=== PATIENT | male | born 1940 | race Caucasian/White ===

== ENCOUNTER 2023-01-06 07:59 | Outpatient (CLI) | payer OTHER, SELFPAY | END 2023-01-06 08:00 | disposition home or self-care (01) | LOC: AMB 01-07 11:30 | PROVIDERS: PCP Family Medicine; Visit Provider Family Medicine | DX: S79.912A Unspecified injury of left hip, initial encounter (principal); S09.90XA Unspecified injury of head, initial encounter; W01.0XXA Fall on same level from slipping, tripping and stumbling without subsequent striking against object, initial encounter; Y92.002 Bathroom of unspecified non-institutional (private) residence as the place of occurrence of the external cause | CPT/HCPCS: A0425; A0427 ==

== ENCOUNTER 2023-01-06 08:35 | Inpatient (IN) | payer OTHER, SELFPAY ==
[2023-01-06] VITALS (40 sets, daily range): BP systolic 102–152; BP diastolic 63–121; PULSE 73–120; RESP 16–18; TEMP 36.4–37.7; O2SAT 90–100; BMI 27.2
--- NOTE | 2023-01-06 08:44 | CRLHL7_ITS ---
For Patients: As a result of the Cures Act, medical imaging exams and procedure reports are released immediately into your electronic medical record. You may view this report before your referring provider. If you have questions, please contact your health care provider. Indication: Trauma, fall. Technique: Left wrist 3 views. Comparison: None. Findings/Impression: Bones: Alignment is normal. No fractures or bone lesions. No sign of acute injury. Joint spaces: No significant degenerative changes. Soft tissues: Mild generalized soft tissue swelling and atherosclerosis present. Dictated by Bairon Boyle MD @ 01/06/2023 10:03:19 AM (Electronically Signed)
--- NOTE | 2023-01-06 08:44 | CRLHL7_ITS ---
For Patients: As a result of the Century Cures Act, medical imaging exams and procedure reports are released immediately into your electronic medical record. You may view this report before your referring provider. If you have questions, please contact your health care provider. Indication: Trauma. Technique: Pelvis and left hip 3 views. Comparison: None. Findings/Impression: Bones: Alignment is normal. No fractures or bone lesions. No sign of acute injury. Joint spaces: Severe bilateral hip joint arthritis. Soft tissues: Unremarkable. Dictated by Bairon Boyle MD @ 01/06/2023 9:59:46 AM (Electronically Signed)
--- NOTE | 2023-01-06 08:47 | ED_ITS ---
HPI - General Adult General Chief complaint: Extremity Pain/Injury, Lower Stated complaint: hip pain Time Seen by Provider: 01/06/23 08:38 Source: patient and EMS Mode of arrival: EMS Limitations: no limitations History of Present Illness HPI narrative: 82-year-old male with notable history of diabetes presents to the emergency department after he fell in his bathroom this morning. He had gotten up to go to the bathroom when there was water on the floor, ceramic tile was very slippery. He slipped on the tile, falling hitting his head on the floor and noting immediate pain in his left hip but now also some pain in his left wrist as well. He does not take any anticoagulants and he is confident that he did not lose consciousness. Adamantly denies any chest pain, dyspnea, dizziness or stroke-like symptoms prior to the fall. Simply a mechanical fall onto he wet floor. FAll-time is approximately 730 which is 1 hour prior to arrival. Denies prior hip or pelvis fracture. No recent surgery. He has been feeling well without any fevers or symptoms of infection. He does live independently but with his and has help at home if needed. EMS reporting no other signs of significant injury on their initial inspection. He denies any feelings of hypoglycemia. EMS did not administer any treatments prior to arrival. Past medical history notable for hypertension, hyperlipidemia, insulin-dependent diabetes. He denies any recent surgeries. Home medications are reviewed, he is able to list these accurately including his doses. He denies any drug allergies. Socially he lives independently and is a nonsmoker. Does not use a walker or cane at baseline. ROS is notable for the hip pain, a contusion to the head and also some mild wrist pain as result of the fall, nothing prior to the fall. Reviewed times 12 systems. Related Data Home Medications Medication Instructions Recorded Confirmed blood sugar diagnostic (Accu-Chek 01/06/23 01/06/23 Guide test strips) empagliflozin 10 mg tablet 10 mg PO DAILY 01/06/23 01/06/23 (Jardiance) glipizide 5 mg tablet 5 mg PO BID 01/06/23 01/06/23 insulin aspart U-100 100 unit/mL subcut 01/06/23 (3 mL) subcutaneous pen (Novolog FlexPen U-100 Insulin aspart) insulin glargine 100 unit/mL (3 unit subcut 01/06/23 mL) subcutaneous pen (Lantus Solostar U-100 Insulin) latanoprost 0.005 % eye drops drp ophthalmic (eye) 01/06/23 lisinopril 20 mg tablet 20 mg PO DAILY 01/06/23 01/06/23 metformin 1,000 mg tablet 1,000 mg PO BID 01/06/23 01/06/23 metformin 500 mg tablet 500 mg PO BID 01/06/23 01/06/23 simvastatin 40 mg tablet 40 mg PO QPM 01/06/23 01/06/23 Allergies Allergy/AdvReac Type Severity Reaction Status Date / Time No Known Drug Allergies Allergy Verified 01/06/23 08:41 [facility] Medical History (Updated 01/06/23 @ 12:26 by Iris Guerra MD) Insulin dependent type 2 diabetes mellitus ?E11.9 - Type 2 diabetes mellitus without complications (ICD-10) ?Z79.4 - [facility] (current) use of insulin (ICD-10) Social History Smoking Status: Never smoker Do you use any of these nicotine containing products: None Second hand tobacco smoke exposure: No How often do you have a drink containing alcohol: never How often do you have six or more drinks on one occasion: Never AUDIT-C Alcohol total score: 0 Non-prescribed substance use: denies use service: No Exam Const: Vital Signs, click to edit/add: Vital Signs - 24 hr 01/06/23 08:41 Temperature 97.5 F L Pulse Rate [Left P ulse Oximeter] 88 Respiratory Rate 18 Blood Pressure [Le ft Upper Arm] 148/121 H Pulse Oximetry 95 Oxygen Delivery Me thod Room Air Documenting provider has reviewed patient's vital signs: yes Common normals: no apparent distress General appearance: cooperative Other: Excellent historian. Refills his story to different members of the team with accuracy. No signs of cognitive impairment. Appears well nourished, well hydrated HENMT: Face and sinus: normal facial exam Mouth: oral and palatal mucosa normal Throat: posterior oropharynx normal Other: No signs of dental injury or tongue biting. Contusion with superficial laceration, currently hemostatic to the left restorationist area. Eye: Common normals: conjunctivae normal General eye: normal appearance of both eyes Conjunctiva: conjunctiva(e) normal Neck & C-Spine: Common normals: full ROM and no lymphadenopathy Cervical spine: no cervical spine tenderness Chest: Common normals: inspection of chest normal and palpation of chest normal Resp: Common normals: normal respiratory effort, no use of accessory muscles and clear to auscultation bilaterally Effort & inspection: able to speak in complete sentences Auscultation: clear to auscultation bilaterally Cardio: Common normals: regular rate, regular rhythm, S1 normal heart sound, S2 normal heart sound and no murmurs Rate: regular rate Rhythm: regular rhythm Heart sounds: S1 normal and S2 normal GI: Common normals: Normal to inspection, nondistended, normoactive bowel sounds present, soft to palpation, non-tender and no hepatosplenomegaly Palpation: soft and no hepatosplenomegaly Extremity: Other: Left leg is slightly shortened and externally rotated, spasm evident in the thigh. Even to gentle palpation, tender over the greater trochanter. No tenderness over the suprapubic or right hip. No obvious deformity to these areas. No bruising or lacerations to the overlying skin on the left hip. Neuro: Other: Normal speech, moves upper extremities normally. Excellent memory and recall. Cranial nerves are grossly intact. He can move his toes on command but I do not ask him to move his legs more due to obvious fracture. GCS 15 Psych: Common normals: cooperative and affect normal Attitude: engaged Insight: insight good Judgement: judgment good Skin: Common normals: no rashes or lesions noted General skin exam: no rashes or lesions noted Course Vital Signs Vital signs: Initial Vital Signs Temperature 97.5 F L 01/06/23 08:41 Temperature Source Temporal Artery Scan 01/06/23 08:41 Pulse Rate 88 01/06/23 08:41 Pulse Rhythm Regular 01/06/23 08:41 Pulse Strength 3+ Normal 01/06/23 08:41 Respiratory Rate 18 01/06/23 08:41 Blood Pressure 148/121 H 01/06/23 08:41 Blood Pressure Mean 130 H 01/06/23 08:41 Blood Pressure Position Sitting 01/06/23 08:41 Pulse Oximetry 95 01/06/23 08:41 Oxygen Delivery Method Room Air 01/06/23 08:41 Vital Signs Temperature 97.5 F L 01/06/23 08:41 Pulse Rate 88 01/06/23 08:41 Respiratory Rate 18 01/06/23 08:41 Blood Pressure 148/121 H 01/06/23 08:41 Pulse Oximetry 95 01/06/23 08:41 Oxygen Delivery Method Room Air 01/06/23 08:41 Temperature 97.5 F L 01/06/23 08:41 Pulse Rate 88 01/06/23 08:41 Respiratory Rate 18 01/06/23 08:41 Blood Pressure 148/121 H 01/06/23 08:41 Pulse Oximetry 95 01/06/23 08:41 Oxygen Delivery Method Room Air 01/06/23 08:41 Medical Decision Making MDM Narrative Medical decision making narrative: Suspect left hip fracture, concern for possible left wrist injury as well. Head contusion does not seem consistent with intracranial hemorrhage. No loss of consciousness, no use of anticoagulants. No fluctuating sensorium. We do have the ability to monitor him well for the next few hours while we complete our workup and if there is any decline or complaints of new areas of pain, we can address these. He declines pain medicine initially but I recommend that we at least start with some oral medicine is I do think he is going to continue to have significant pain will start with 5 mg of oxycodone to see how he tolerates this, we can always give more as well as 650 of Tylenol. Do recommend that we move forward with typical preoperative evaluation as I suspect that he will need surgery. He will be kept NPO, basic labs and EKG will be performed. Anticipate orthopedic consultation. Update: Patient reports his pain is controlled when he is at rest after the oxycodone. Has been NPO since about 530 last night with exception of a small sip of only water at 7:[address] Julian, he is recommending a hip replacement. Spoke with Dr. Estevez, he is accepting of admission. The p.r.n. dilaudid ordered, Zofran if needed. Will start some IV fluids and anticipate admission with surgery tomorrow or surgery later today if able to accommodate this. Discussed with patient and his , all questions answered. Lab Data Lab results reviewed: Yes I reviewed the patient's lab results Lab results narrative: Reassuring. Labs: Lab Results 01/06/23 Range/Units 08:53 WBC 6.26 (4.50-11.00) K/uL RBC 4.80 (4.30-5.90) m/uL Hgb 14.3 (13.5-17.5) gm/dL Hct 43.1 (37.0-53.0) % MCV 90 (80-100) fL MCH 30 (26-34) pg MCHC 33 (32-36) gm/dL RDW Coeff of Robert 12.8 (11.5-15.5) % Plt Count 226 (140-440) K/uL Neut % (Auto) 55.6 (42.0-72.0) % Lymph % (Auto) 25.1 (20-44) % [place] % (Auto) 7.5 (0.0-11.0) % Eos % (Auto) 11.3 H (0.0-7.0) % Baso % (Auto) 0.2 (0.0-3.0) % Neut # (Auto) 3.48 (1.7-7.0) K/uL Lymph # (Auto) 1.57 (0.90-2.90) K/uL Shawnee # (Auto) 0.50 (0.00-0.90) K/UL Eos # (Auto) 0.70 H (0.00-0.50) K/uL Baso # (Auto) 0.01 (0.00-0.30) K/uL Sodium 136 (135-149) mmol/L Potassium 4.6 (3.6-5.1) mmol/L Chloride 104 (96-114) mmol/L Carbon Dioxide 27 (20-32) mmol/L BUN 32 H (7-30) mg/dL Creatinine 1.3 (0.5-1.5) mg/dL Estimated Creat Clear 51.81 Estimated GFR 55 ml/min Glucose 168 H (60-115) mg/dL Calcium 9.0 (8.4-10.6) mg/dL SARS-CoV-2 (PCR) Negative SARS-CoV-2 (Negative) Imaging Data CT scan - pelvis: Attestation: I have reviewed the pertinent imaging results. My impression: I do see a fracture on plain x-ray, at the medial femoral neck. I have the luxury of my exam to aid me in this. Was not noted originally by the radiologist, therefore I get a CT scan which more clearly shows the fracture in the suspected area. Wrist appears normal per my interpretation, confirmed with radiology report. Radiologist's impression: IMPRESSION: Minimally impacted ventrally angulated transcervical fracture of the left femoral neck. ECG Data Attestation: I personally reviewed and interpreted this ECG as follows: Prior ECG tracings: not available for review (No prior EKGs available including in old computer system.) Interpretation: Normal sinus rhythm, rate of 79. Overall with no obvious signs of ischemia. There appeared to be some very mild chronic septal changes. Essentially normal EKG. Discharge Plan Discharge Clinical Impression: Closed fracture of left hip Patient Disposition: Admitted As Inpatient Activity Level: No Weight Bearing
[2023-01-06] MEDS: OXYCODONE 5 MG TABLET PO (08:54)
[2023-01-06] MEDS: 0.9 % SODIUM CHLORIDE 500 ML 500 ML IV (08:54)
[2023-01-06] MEDS: ACETAMINOPHEN 325 MG TABLET 650 MG PO (08:54)
[2023-01-06 09:01] LABS: Basophils Absolute Auto 0.01 K/uL (0.00-0.30); Basophils Percent Auto 0.2 % (0.0-3.0); Eosinophils Percent Auto 11.3 % (0.0-7.0); Hematocrit 43.1 % (37.0-53.0); Hemoglobin* 14.3 gm/dL (13.5-17.5); Immature Granulocytes Abs Auto 0.02 K/uL (0.00-0.30); Immature Granulocytes Pct Auto 0.3 %; Lymphocytes Absolute Auto 1.57 K/uL (0.90-2.90); Lymphocytes Percent Auto 25.1 % (20-44); Mean Corpuscular HGB Conc 33 gm/dL (32-36); Mean Corpuscular Hemoglobin 30 pg (26-34); Mean Corpuscular Volume 90 fL (80-100); Monocytes Percent Auto 7.5 % (0.0-11.0); Neutrophils Absolute Auto 3.48 K/uL (1.7-7.0); Neutrophils Percent Auto 55.6 % (42.0-72.0); Platelet Count* 226 K/uL (140-440); RDW Coefficient of Variation % 12.8 % (11.5-15.5); White Blood Count* 6.26 K/uL (4.50-11.00)
[2023-01-06 09:11] LABS: Slide Review Reflex No
[2023-01-06 09:28] LABS: Chloride* 104 mmol/L (96-114); Potassium* 4.6 mmol/L (3.6-5.1); Sodium* 136 mmol/L (135-149)
[2023-01-06 09:30] LABS: Creatinine* 1.3 mg/dL (0.5-1.5); Est. Creatinine Clearance* 51.81; Estimated Glomerular Filt Rate 55 ml/min
[2023-01-06 09:31] LABS: Blood Urea Nitrogen* 32 mg/dL (7-30); Carbon Dioxide* 27 mmol/L (20-32); Glucose* 168 mg/dL (60-115)
--- NOTE | 2023-01-06 10:07 | CRLHL7_ITS ---
For Patients: As a result of the Century Cures Act, medical imaging exams and procedure reports are released immediately into your electronic medical record. You may view this report before your referring provider. If you have questions, please contact your health care provider. INDICATION: Pain after fall. Suspected fracture. COMPARISON: Plain films same date. TECHNIQUE: Multidetector imaging of the hips with axial large field performed with axial, coronal and sagittal small field left hip reformat. FINDINGS: Degenerative arthrosis left sacroiliac joint with anterior bridging osteophytes and subchondral sclerosis. Bones are diffusely osteopenic. Severe [id number] osteoarthritis of both hips. Large subchondral cyst posterior superior left femoral head and small subchondral cysts through anterior and posterior acetabulum. Subtle fracture of the femoral neck with slight impaction and disorganization trabecula at the subcapital Marge. There are anterior nondisplaced cortical extension to the top of the lesser trochanter. Very slight ventral angulation. Nearly imperceptible posterior cortical fracture. No intra-articular extension appreciated. Greater trochanter is intact. IMPRESSION: Minimally impacted ventrally angulated transcervical fracture of the left femoral neck. Please note that all CT scans at this facility use dose modulation, iterative reconstruction, and/or weight-based dosing when appropriate to reduce radiation dose to as low as reasonably achievable. Dictated by Stan Parikh MD @ 01/06/2023 10:57:40 AM (Electronically Signed)
[2023-01-06 11:00] LABS: SARS PCR* Negative SARS-CoV-2 (Negative)
--- NOTE | 2023-01-06 13:12 | PM.IMHP1 ---
Hospitalist- H&P: HPI History of Present Illness Time Seen by Provider: 13:13 Date Seen: 01/06/23 Chief complaint: hip pain Narrative: Derek Hadley is a 82 year old male slipped and fell on a ceramic bathroom floor after getting up from the toilet. He landed on his left hip and had acute onset of left hip pain. He could not get up from the floor and his could not help him. He also bumped his left forehead he thinks on the counter on the way down. He did not lose consciousness. There is no nausea or vomiting or headache now. He also may have slightly injured his left wrist. He has not had any other injuries. He has not eaten anything since last night. He had a tiny sip of water at 6:30 a.m. He has not taken any of his usual morning medications yet. He denies any chest pain or shortness of breath. He denies any cough or fever. He denies any anesthesia or bleeding problems. He can walk 4 blocks slowly due to the arthritis in his back. He can climb 2 flights of stairs. Review of Systems Status of ROS: Reports: 10 or more systems reviewed and unremarkable except as noted in History and below [facility] Medical History (Updated 01/06/23 @ 13:40 by Genaro Freedman MD) Hypertension ?I10 - Essential (primary) hypertension (ICD-10) Insulin dependent type 2 diabetes mellitus ?E11.9 - Type 2 diabetes mellitus without complications (ICD-10) ?Z79.4 - intermediate (current) use of insulin (ICD-10) Surgical History (Updated 01/06/23 @ 13:25 by Genaro Freedman MD) History of appendectomy ?Z90.49 - Acquired absence of other specified parts of digestive tract (ICD-10) Family History (Updated 01/06/23 @ 13:25 by Genaro Freedman MD) Brother Coronary artery disease Social History (Updated 01/06/23 @ 13:26 by Genaro Freedman MD) Narrative: Derek is a retired from the [employer]. He lives with his in their own home. Smoking Status: Never smoker Do you use any of these nicotine containing products: None Second hand tobacco smoke exposure: No How often do you have a drink containing alcohol: never How often do you have six or more drinks on one occasion: Never AUDIT-C Alcohol total score: 0 Non-prescribed substance use: denies use service: No Active Problems (Updated 01/06/23 @ 13:40 by Genaro Freedman MD) Hypertension (Acute) ?I10 - Essential (primary) hypertension (ICD-10) Closed fracture of left hip (Acute) He is scheduled to have surgery today and is medically cleared for this. ?S72.002A - Fracture of unspecified part of neck of left femur, initial encounter for closed fracture (ICD-10) Insulin dependent type 2 diabetes mellitus (Acute) Will due accuchecks and a sliding scale. ?E11.9 - Type 2 diabetes mellitus without complications (ICD-10) ?Z79.4 - intermediate (current) use of insulin (ICD-10) Medical History (Updated 01/06/23 @ 13:40 by Genaro Freedman MD) Hypertension ?I10 - Essential (primary) hypertension (ICD-10) Insulin dependent type 2 diabetes mellitus ?E11.9 - Type 2 diabetes mellitus without complications (ICD-10) ?Z79.4 - terminal gauger (current) use of insulin (ICD-10) Surgical History (Updated 01/06/23 @ 13:25 by Genaro Freedman MD) History of appendectomy ?Z90.49 - Acquired absence of other specified parts of digestive tract (ICD-10) Family History (Updated 01/06/23 @ 13:25 by Genaro Freedman MD) Brother Coronary artery disease Social History (Updated 01/06/23 @ 13:26 by Genaro Freedman MD) Narrative: Derek is a retired from the [employer]. He lives with his in their own home. Smoking Status: Never smoker Do you use any of these nicotine containing products: None Second hand tobacco smoke exposure: No How often do you have a drink containing alcohol: never How often do you have six or more drinks on one occasion: Never AUDIT-C Alcohol total score: 0 Non-prescribed substance use: denies use service: No Meds Home Medications and Allergies Home Medications Medication Instructions Recorded Confirmed Type blood sugar diagnostic (Accu-Chek 01/06/23 01/06/23 History Guide test strips) empagliflozin 10 mg tablet 10 mg PO DAILY 01/06/23 01/06/23 History (Jardiance) glipizide 5 mg tablet 5 mg PO BID 01/06/23 01/06/23 History insulin aspart U-100 100 unit/mL subcut 01/06/23 History (3 mL) subcutaneous pen (Novolog FlexPen U-100 Insulin aspart) insulin glargine 100 unit/mL (3 unit subcut 01/06/23 History mL) subcutaneous pen (Lantus Solostar U-100 Insulin) latanoprost 0.005 % eye drops drp ophthalmic (eye) 01/06/23 History lisinopril 20 mg tablet 20 mg PO DAILY 01/06/23 01/06/23 History metformin 1,000 mg tablet 1,000 mg PO BID 01/06/23 01/06/23 History metformin 500 mg tablet 500 mg PO BID 01/06/23 01/06/23 History simvastatin 40 mg tablet 40 mg PO QPM 01/06/23 01/06/23 History Allergies Allergy/AdvReac Type Severity Reaction Status Date / Time No Known Drug Allergies Allergy Verified 01/06/23 08:41 Allergies/Adverse Reaction Comments: Ibuprofen. They think he may have been allergic to the coating on tablets. He has tolerated Advil liquid gel caps Exam Const: Vital Signs, click to edit/add: Vital Signs - 24 hr 01/06/23 08:41 Temperature 97.5 F L Pulse Rate [Left P ulse Oximeter] 88 Respiratory Rate 18 Blood Pressure [Le ft Upper Arm] 148/121 H Pulse Oximetry 95 Oxygen Delivery Me thod Room Air HEENT - he has a bruise over his left forehead. It is not tender. There is no tenderness over his neck and he has full range of motion no bruising anywhere else over his face. Cardiovascular regular rate and rhythm. Lungs are clear to auscultation bilaterally. Abdomen positive bowel sounds soft nontender. Extremities is tender over his left hip. No peripheral edema Homans sign is negative. Skin is warm and dry without rashes. Documenting provider has reviewed patient's vital signs: yes Common normals: no apparent distress and oriented x3 Neuro: Common normals: oriented x3 Hospitalist - H&P: Result Labs Labs: Short CBC 01/06/23 Range/Units 08:53 WBC 6.26 (4.50-11.00) K/uL Hgb 14.3 (13.5-17.5) gm/dL Hct 43.1 (37.0-53.0) % Plt Count 226 (140-440) K/uL BMP 01/06/23 08:53 Sodium 136 Potassium 4.6 Chloride 104 Carbon Dioxide 27 BUN 32 H Creatinine 1.3 Glucose 168 H Calcium 9.0 ECG Attestation: I personally reviewed and interpreted this ECG as follows: (EKG shows normal sinus rhythm. There are changes suggestive of an old septal infarct.) ECG interpretation date: 01/06/23 ECG interpretation time: 13:33 Imaging Hip xray: Radiologist's impression: Indication: Trauma. Technique: Pelvis and left hip 3 views. Comparison: None. Findings/Impression: Bones: Alignment is normal. No fractures or bone lesions.? No sign of acute injury.? Joint spaces: Severe bilateral hip joint arthritis. Soft tissues: Unremarkable. Dictated by Bairon Boyle MD @ 01/06/2023 9:59:46 AM (Electronically Signed) Hip CT: Radiologist's impression: INDICATION: Pain after fall. Suspected fracture. COMPARISON: Plain films same date. TECHNIQUE: Multidetector imaging of the hips with axial large field performed with axial, coronal and sagittal small field left hip reformat. FINDINGS: Degenerative arthrosis left sacroiliac joint with anterior bridging osteophytes and subchondral sclerosis. Bones are diffusely osteopenic. Severe [id number] osteoarthritis of both hips. Large subchondral cyst posterior superior left femoral head and small subchondral cysts through anterior and posterior acetabulum. Subtle fracture of the femoral neck with slight impaction and disorganization trabecula at the subcapital Marge. There are anterior nondisplaced cortical extension to the top of the lesser trochanter. Very slight ventral angulation. Nearly imperceptible posterior cortical fracture. No intra-articular extension appreciated. Greater trochanter is intact. IMPRESSION: Minimally impacted ventrally angulated transcervical fracture of the left femoral neck. Please note that all CT scans at this facility use dose modulation, iterative reconstruction, and/or weight-based dosing when appropriate to reduce radiation dose to as low as reasonably achievable. Dictated by Stan Parikh MD @ 01/06/2023 10:57:40 AM (Electronically Signed) Assessment and Plan Assessment and plan (1) Closed fracture of left hip: Problem comment: He is scheduled to have surgery today and is medically cleared for this. Status: Acute (2) Insulin dependent type 2 diabetes mellitus: Problem comment: Will due accuchecks and a sliding scale. Status: Acute (3) Hypertension: Status: Acute Plan He did not take his blood pressure meds today. Will evaluate his blood pressure postoperatively and determine when we need to restart his medications.
[2023-01-06] MEDS: LACTATED RINGERS 1000 ML 1,000 ML 125 ML IV (13:54)
--- NOTE | 2023-01-06 13:58 | PM.ORCN ---
History of Present Illness HPI Date Seen: 01/06/23 Requesting physician: Iris Guerra Chief complaint: hip pain Narrative: The patient is an 82-year-old community ambulator without assist. He fell in his home this morning sustaining a left hip fracture. He has never had surgery on this hip previously. He has type 2 diabetes on insulin, does not smoke cigarettes and is not on blood thinners. He lives independently, with his . Review of Systems Narrative: The patient denies: Fever, night sweats, shaking chills, nausea, vomiting, diarrhea, chest pain, chest pressure, shortness of breath, no rash, no change in hearing or vision, no issues with bleeding or clotting PFSH PFS Medical History Hypertension ?I10 - Essential (primary) hypertension (ICD-10) Insulin dependent type 2 diabetes mellitus ?E11.9 - Type 2 diabetes mellitus without complications (ICD-10) ?Z79.4 - detention (current) use of insulin (ICD-10) Surgical History History of appendectomy ?Z90.49 - Acquired absence of other specified parts of digestive tract (ICD-10) Family History Brother Coronary artery disease Social History Narrative: Derek is a retired from the [employer]. He lives with his in their own home. Smoking Status: Never smoker Do you use any of these nicotine containing products: None Second hand tobacco smoke exposure: No How often do you have a drink containing alcohol: never How often do you have six or more drinks on one occasion: Never AUDIT-C Alcohol total score: 0 Non-prescribed substance use: denies use service: No Meds Home Medications and Allergies Home Medications Medication Instructions Recorded Confirmed Type blood sugar diagnostic (Accu-Chek 01/06/23 01/06/23 History Guide test strips) empagliflozin 10 mg tablet 10 mg PO DAILY 01/06/23 01/06/23 History (Jardiance) glipizide 5 mg tablet 5 mg PO BID 01/06/23 01/06/23 History insulin aspart U-100 100 unit/mL subcut 01/06/23 History (3 mL) subcutaneous pen (Novolog FlexPen U-100 Insulin aspart) insulin glargine 100 unit/mL (3 unit subcut 01/06/23 History mL) subcutaneous pen (Lantus Solostar U-100 Insulin) latanoprost 0.005 % eye drops drp ophthalmic (eye) 01/06/23 History lisinopril 20 mg tablet 20 mg PO DAILY 01/06/23 01/06/23 History metformin 1,000 mg tablet 1,000 mg PO BID 01/06/23 01/06/23 History metformin 500 mg tablet 500 mg PO BID 01/06/23 01/06/23 History simvastatin 40 mg tablet 40 mg PO QPM 01/06/23 01/06/23 History Allergies Allergy/AdvReac Type Severity Reaction Status Date / Time No Known Drug Allergies Allergy Verified 01/06/23 08:41 Ortho Exam Narrative Exam Narrative: The patient is alert and oriented x3, in no acute distress, they are able to converse in a normal speaking voice without obvious hearing loss and with nonlabored breathing. The patient is examined supine on the hospital cart, in the emergency department. The skin about the left hip is intact, without surgical scars, swelling or ecchymosis. CMS to the foot is intact. Const Vital Signs, click to edit/add: Vital Signs - 24 hr 01/06/23 08:41 01/06/23 08:47 01/06/23 08:48 Temperature 97.5 F L Pulse Rate 78 74 Pulse Rate [Left Pulse Oximeter] 88 Respiratory Rate 18 Blood Pressure 152/83 H Blood Pressure [Left Upper Arm] 148/121 H Pulse Oximetry 95 97 97 Oxygen Delivery Method Room Air 01/06/23 09:00 01/06/23 10:50 01/06/23 10:51 Temperature Pulse Rate 74 75 78 Pulse Rate [Left Pulse Oximeter] Respiratory Rate Blood Pressure 137/69 Blood Pressure [Left Upper Arm] Pulse Oximetry 97 96 96 Oxygen Delivery Method 01/06/23 11:00 01/06/23 11:01 01/06/23 11:15 Temperature Pulse Rate 80 76 73 Pulse Rate [Left Pulse Oximeter] Respiratory Rate Blood Pressure 132/74 Blood Pressure [Left Upper Arm] Pulse Oximetry 96 94 94 Oxygen Delivery Method 01/06/23 11:30 01/06/23 11:31 01/06/23 11:45 Temperature Pulse Rate 79 74 73 Pulse Rate [Left Pulse Oximeter] Respiratory Rate Blood Pressure 108/64 Blood Pressure [Left Upper Arm] Pulse Oximetry 94 94 94 Oxygen Delivery Method 01/06/23 12:00 01/06/23 12:01 01/06/23 12:15 Temperature Pulse Rate 80 73 80 Pulse Rate [Left Pulse Oximeter] Respiratory Rate Blood Pressure 119/68 Blood Pressure [Left Upper Arm] Pulse Oximetry 95 94 98 Oxygen Delivery Method 01/06/23 12:30 01/06/23 12:32 01/06/23 12:45 Temperature Pulse Rate 78 78 79 Pulse Rate [Left Pulse Oximeter] Respiratory Rate Blood Pressure 142/77 H Blood Pressure [Left Upper Arm] Pulse Oximetry 97 96 96 Oxygen Delivery Method 01/06/23 13:00 01/06/23 13:02 01/06/23 13:15 Temperature Pulse Rate 73 75 81 Pulse Rate [Left Pulse Oximeter] Respiratory Rate Blood Pressure 134/76 Blood Pressure [Left Upper Arm] Pulse Oximetry 94 96 96 Oxygen Delivery Method 01/06/23 13:30 01/06/23 13:31 01/06/23 13:45 Temperature Pulse Rate 80 81 81 Pulse Rate [Left Pulse Oximeter] Respiratory Rate Blood Pressure 122/65 Blood Pressure [Left Upper Arm] Pulse Oximetry 90 93 96 Oxygen Delivery Method Results Labs Labs: Laboratory Results - last 48 hr 01/06/23 08:53 WBC 6.26 RBC 4.80 Hgb 14.3 Hct 43.1 MCV 90 MCH 30 MCHC 33 RDW Coeff of Robert 12.8 Plt Count 226 Neut % (Auto) 55.6 Lymph % (Auto) 25.1 Harrison % (Auto) 7.5 Eos % (Auto) 11.3 H Baso % (Auto) 0.2 Neut # (Auto) 3.48 Lymph # (Auto) 1.57 Harrison # (Auto) 0.50 Eos # (Auto) 0.70 H Baso # (Auto) 0.01 Sodium 136 Potassium 4.6 Chloride 104 Carbon Dioxide 27 BUN 32 H Creatinine 1.3 Estimated Creat Clear 51.81 Estimated GFR 55 Glucose 168 H Calcium 9.0 SARS-CoV-2 (PCR) Negative SARS-CoV-2 Diagnostic results Additional Comments: An AP pelvis, AP and cross-table lateral view of the left hip potentially show a nondisplaced, incomplete femoral neck fracture. There is Tonnis grade 3 bilateral hip osteoarthritis with medial joint space narrowing, osteophytic spurring, subchondral sclerosis and subchondral cysts. CT scan of the left hip shows a nondisplaced femoral neck fracture with extension to just above the lesser trochanter. Assessment and Plan Assessment and plan (1) Closed fracture of left hip: Problem comment: He is scheduled to have surgery today and is medically cleared for this. Status: Acute Total time spent: Total time spent is greater than 50% in coordination of care (as documented) at patient's floor/unit and/or counseling patient: (2) Insulin dependent type 2 diabetes mellitus: Problem comment: Will due accuchecks and a sliding scale. Status: Acute Total time spent: Total time spent is greater than 50% in coordination of care (as documented) at patient's floor/unit and/or counseling patient: (3) Hypertension: Status: Acute Total time spent: Total time spent is greater than 50% in coordination of care (as documented) at patient's floor/unit and/or counseling patient: Plan Assessment: Nondisplaced left femoral neck fracture Tonnis grade 3 bilateral hip osteoarthritis Plan: I told the patient and his that his injury is best treated with total hip arthroplasty. I told them that this allows us to mobilize him weight-bearing as tolerates as soon as possible. Additionally, it will take care of his pre-existing hip joint arthritis. He agrees and wishes to proceed. He has been medically cleared for surgery We will plan to take him to the operating room today.
--- NOTE | 2023-01-06 14:03 | PM.ORPRC ---
Procedure Note Date of procedure: 01/06/23 Procedure: PREOPERATIVE DIAGNOSIS: Left hip osteoarthritis, left femoral neck fracture POSTOPERATIVE DIAGNOSIS: Left hip osteoarthritis, left femoral neck fracture NAME OF OPERATION: Left total hip arthroplasty SURGEON: Juan Julian MD CARD HANGER: Melani House PA-C, FLAKITA Byrne IMPLANTS: 1. [employer] [place] # 52 sector ingrowth cup 2. 36 x 52 +4 neutral polyethylene 3. [place] cemented # 6 high offset stem 4. 36 + 5 cobalt chrome femoral head ANESTHESIA: General ESTIMATED BLOOD LOSS: 500 cc COMPLICATIONS: None SPECIMENS: None DRAINS: None PREOPERATIVE ANTIBIOTICS: Ancef 2 grams INDICATIONS: The patient is a 82-year-old who fell this morning sustaining a nondisplaced, but comminuted left femoral neck fracture. He has pre-existing, end-stage left hip osteoarthritis. He was seen in the emergency department, with the above diagnoses. Operative intervention was recommended. Given the pre-existing osteoarthritis, total hip arthroplasty was suggested. The risks, benefits and expected outcomes were discussed in detail. These included but were not limited to: Infection, bleeding, injury to blood vessel or nerve, venous thromboembolism. All questions were answered to their satisfaction. Use of an legal administrative assistant was necessary throughout the case for patient positioning and safety, soft tissue retraction and closure. A modifier 22 should be added to this case. The patient's pelvis is wide which made exposure on the femoral side quite difficult. Additionally, there was a marked amount of comminution of the neck, into the calcar which made femoral fixation challenging. These factors more than doubled the time typically required to complete the case. PROCEDURE: The patient was placed supine on the [place] table. General anesthesia was administered. The legal administrative assistant made sure the patient was properly positioned. The left hip was prepped and draped in the usual sterile fashion. The image intensifier was brought in for a perfect AP pelvis and a perfect double tear drop AP view of the right hip which were used for intraoperative templating with our fluoroscopic guide. An oblique incision was made 3 cm distal and 3 cm lateral to the anterior superior iliac spine. The legal administrative assistant retracted the soft tissues to protect them. Subcutaneous dissection was taken with electrocautery to the superficial fascia. The fascia was divided in line with the incision. Blunt dissection was carried medially to the tensor fascia nikko and sartorius interval. Deep dissection was carried with electrocautery. The circumflex vessels were cauterized and divided. The capsule was exposed and then divided in a T-fashion, tagged with #1 Ethibond sutures. Retractors were placed in the joint, held by the legal administrative assistant. The corkscrew was placed in the femoral head. The neck cut was made in the subcapital region. We made a second neck cut more distal. The bone was quite poor. The femoral head was removed intact. Acetabular retractors were placed, held by the legal administrative assistant. The labrum was sharply debrided. The capsule was released. The 43 mm reamer was used to the true medial wall. We then enlarged in 2 mm increments using the image intensifier for our reamer placement. We impacted the cup which had excellent purchase. We placed the hole eliminator and the polyethylene. Attention was then turned to the proximal femur. The limb was placed in 140 degrees of external rotation, maximum extension and adduction. A significant amount of time was spent releasing the capsule to allow us to deliver the femur into the wound and complete the femoral side safely. Retractors were held by the legal administrative assistant throughout the femoral preparation. The box toe buffer and canal finder were used. Broaches were used to a stable size. There was a large cortical fragment of the posterior neck that extended distally, just proximal to the lesser trochanter. This was devoid of soft tissue attachments. Trial components were placed. A super cable was placed around the calcar to help support the posterior neck. The hip was reduced and was found to be stable with appropriate soft tissue tension. Length and offset were close using the image intensifier. Given the poor quality bone and comminution of the neck, into the lesser trochanter, we elected to cement the femoral stem. Therefore, the cement restrictor was placed. The canal was irrigated with pulse lavage, then thoroughly dried. Cement was placed retrograde with the gun and hand pressurized. The # 6 [place] stem was placed in the canal in an appropriate amount of anteversion and impacted to the intact portion of the calcar. The posterior, free fragment was cemented in place. The cement was allowed to harden. We trialed different femoral heads in order to equal his leg lengths, using the image intensifier and our fluoroscopic guide. We then placed the femoral head. Again, the hip was reduced and was found to be stable with appropriate soft tissue tension. Length and offset had been nicely restored. The legal administrative assistant did a three minute dilute Betadine solution soak. The legal administrative assistant irrigated the wound with 3 liters of normal saline via pulse lavage. The legal administrative assistant repaired the anterior capsule with a #1 Vicryl and our previously placed Ethibond sutures. The legal administrative assistant closed the fascia over the tensor fascia nikko with a #1 PDO Stratafix, subcutaneous tissues with 2-0 Vicryl, skin with a running 3-0 Stratafix and glue. A dry dressing was applied by the legal administrative assistant. Sponge and needle counts were correct x 2. The patient tolerated the procedure well; there were no apparent complications. They were awakened and extubated in the operating room, sent to the Post-Anesthesia Care Unit in satisfactory condition. PLAN: 1. The patient will be mobilized with physical therapy, weight-bearing as tolerates 2. Xarelto x 5 days then aspirin x 30 days will be used for DVT prophylaxis 3. The patient will be discharged to a senior care facility once medically appropriate
[2023-01-06] MEDS: CEFAZOLIN 2 GM INJ IVP (14:04)
[2023-01-06] MEDS: TRANEXAMIC ACID 100 MG/ML INJ 1000 MG IV (14:11)
--- NOTE | 2023-01-06 14:12 | P.NB_ITS ---
Nerve Block Nerve Block Time Seen by Provider: 14:00 Date Seen: 01/06/23 Type of block requested by surgeon for post-operative analgesia: PARUL/LFCN Side: left Time out performed: Yes Verification of patient name: Yes Verification of date of : Yes Site marking: site marked Name of person performing procedure: [place] Continuous monitoring Was continuous monitoring of O2 sat, B/P, property assessment monitor, recorded every 15 minutes?: Yes Procedure Checklist: sterile prep, needles and gloves Ultrasound guided. Images saved: Yes Medications given in 5ml increments after negative aspiration: Ropivicaine %: 0.5 mL: 30 Needle gauge: 20 Decadron (mg): 10 Precedex (mcg): 25 Patient tolerated procedure well: Yes Additional comments: Needle noted below psoas tendon needle noted adjacent to LFCN Block Charges Block Charge (with Pro Fee): Other Periph Nerve Block Use of Ultrasound Machine for Block: Yes- US Guidance/pain block
--- NOTE | 2023-01-06 14:15 | CRLHL7_ITS ---
For Patients: As a result of the Cures Act, medical imaging exams and procedure reports are released immediately into your electronic medical record. You may view this report before your referring provider. If you have questions, please contact your health care provider. Indication: Hip replacement surgery Technique: AP hip fluoroscopic image. Fluoroscopy time 60.9 seconds. Findings/Impression: Hardware from a left total hip arthroplasty is in satisfactory position. Dictated by Haris Carr MD @ 01/07/2023 9:56:57 AM (Electronically Signed)
[2023-01-06] MEDS: LACTATED RINGERS 1000 ML 1,000 ML 100 ML IV ×2 (15:34→17:00)
--- NOTE | 2023-01-06 17:54 | CRLHL7_ITS ---
For Patients: As a result of the Cures Act, medical imaging exams and procedure reports are released immediately into your electronic medical record. You may view this report before your referring provider. If you have questions, please contact your health care provider. Indication: Postop Technique: AP hip centered pelvis and lateral view left hip Findings/Impression: Hardware from a left total hip arthroplasty is in satisfactory position. Bone alignment is normal. Additional surgical change to the lesser trochanter noted. No sign of acute fracture. Postop changes are within normal limits. Dictated by Haris Carr MD @ 01/07/2023 9:57:56 AM (Electronically Signed)
--- NOTE | 2023-01-06 18:31 | P.ANES_ITS ---
Anesthesia Charges Start Date/Time Anesthesia Start Date: 01/06/23 Anesthesia Start Time: 13:54 Stop Date/Time Anesthesia Stop Date: 01/06/23 Anesthesia Stop Time: 18:25 Summary Emergency: [facility]
[2023-01-06] MEDS: ACETAMINOPHEN 500 MG TABLET 1000 MG PO (21:00)
[2023-01-06] MEDS: SENNOSIDES 1 TAB TABLET 2 TAB PO (21:00)
[2023-01-06] MEDS: LACTATED RINGERS 1000 ML 1,000 ML 75 ML IV (21:06)
[2023-01-07] VITALS (7 sets, daily range): BP systolic 98–134; BP diastolic 60–85; PULSE 82–112; RESP 16–18; TEMP 36.6–36.9; O2SAT 94–96
[2023-01-07] MEDS: CEFAZOLIN 2 GM in 0.9 % SODIUM CHLORIDE Mini-bag 100 ML IVPB ×2 (00:18→07:54)
[2023-01-07] MEDS: ACETAMINOPHEN 500 MG TABLET 1000 MG PO ×2 (02:02→07:54)
--- NOTE | 2023-01-07 06:51 | PC.NURSE ---
END OF SHIFT NOTE: PT PLEASANT AND COOPERATIVE WITH CARES. A&O x3 WITH OCCASIONAL CONFUSION. NOT USING CALL LIGHT APPROPRIATELY WHEN NEEDING TO USE THE BATHROOM. PT DENIES CP, SOB, N/V. AMBULATES WITH WALKER, GB, A1-2. VSS ON RA; AFEBRILE. HEAD LAC TO PT LEFT SIDE OF FOREHEAD, LEFT ELBOW LAC. PT DENIES PAIN TO LEFT HIP. ACTIVE ICE TO LEFT HIP. BED ALARM ON AND CALL LIGHT WITHIN PT?S REACH.
[2023-01-07 06:58] LABS: Hematocrit 38.2 % (37.0-53.0); Hemoglobin* 12.6 gm/dL (13.5-17.5); Immature Granulocytes Pct Auto 0.2 %; Lymphocytes Percent Auto 9.5 % (20-44); Mean Corpuscular HGB Conc 33 gm/dL (32-36); Mean Corpuscular Hemoglobin 30 pg (26-34); Mean Corpuscular Volume 91 fL (80-100); Monocytes Percent Auto 8.6 % (0.0-11.0); Neutrophils Percent Auto 81.7 % (42.0-72.0); Platelet Count* 227 K/uL (140-440); RDW Coefficient of Variation % 13.1 % (11.5-15.5); Red Blood Count 4.22 m/uL (4.30-5.90); White Blood Count* 12.15 K/uL (4.50-11.00)
[2023-01-07 07:01] LABS: Slide Review Reflex No
[2023-01-07 07:11] LABS: Sodium* 133 mmol/L (135-149)
[2023-01-07 07:15] LABS: Blood Urea Nitrogen* 34 mg/dL (7-30); Creatinine* 1.4 mg/dL (0.5-1.5); Est. Creatinine Clearance* 48.11; Estimated Glomerular Filt Rate 50 ml/min
--- NOTE | 2023-01-07 09:28 | PM.DS1 ---
DS: Providers Provider Time Seen by Provider: 09:29 Date Seen: 01/07/23 Date of admission: 01/06/23 20:23 Primary care physician: Genaro Freedman MD Admitting Clinician: Katt Jesus MD Consults: 01/06/23 19:55 Consult to Occupational Therapy [CONS] Routine Comment: Reason(s) for OT Consult:: Evaluate and Treat Any Restrictions?:: No Restrictions Consult to Physical Therapy [CONS] Routine Comment: Ambulate in the [place] today Reason(s) for PT Consult:: Evaluate and Treat Any Restrictions?:: No Restrictions Comment: Nursing Activity Consult to Physical Therapy [CONS] Routine Comment: Ambulate in the [place] today Reason(s) for PT Consult:: THR TX Protocol POD#0 Any Restrictions?:: No Restrictions Comment: Nursing Activity: See nursing activity order Consult to Physician [CONS] Routine Comment: Consulting Provider: Hospitalists Has provider been notified: No Consult to [facility] [CONS] Routine Comment: Reason for Consult:: Discharge Planning Needs Consult to [facility] [CONS] Routine Comment: Reason for Consult:: Discharge Planning Needs Consult to [facility] Room Hand [CONS] Routine Comment: Reason for Consult:: Possible SNF placement Attending Physician on discharge: Juan Julian MD Date of Discharge: 01/07/23 DS: Diagnosis Discharge Diagnosis (1) Closed fracture of left hip: Status: Acute Problem details: He had a successful surgery on the day of admission. His postop hemoglobin was in the 12 range. He was ambulating to the bathroom with a walker without any trouble on the day of discharge. He did not require any assistance. (2) Insulin dependent type 2 diabetes mellitus: Status: Acute Problem details: His eating is back to normal and his blood sugar this morning is 250. Will resume his normal diabetes meds. (3) Hypertension: Status: Acute Problem details: Blood pressure was well controlled in the hospital in the 100s to 120s over 60s to 70s. DS: Summary Hospital Course Hospital Course: P was admitted to the hospital with a left hip fracture. He underwent surgery on the day of admission. He recovered well and was able to ambulate to and from the bathroom easily with a walker without any assistance. His blood sugars were in the 200 range in the hospital. His oral meds well or held on the day of surgery. He was eating normally at the time of discharge and his oral medicines have been resumed. His blood pressures were well controlled in the hospital. Status at Discharge Functional status at discharge: uses cane/walker Time Spent with Patient Time attestation: Total time spent providing and/or coordinating discharge services: 40 minutes was spent with the patient over half the time was spent counseling coordinating care. Time spent: Greater than 30 minutes Exam Const: Vital Signs, click to edit/add: Vital Signs - 24 hr 01/06/23 10:50 01/06/23 10:51 01/06/23 11:00 Temperature Pulse Rate 75 78 80 Pulse Rate [Pulse Oximeter] Respiratory Rate Blood Pressure 137/69 Blood Pressure [Ri ght Radial Artery] Pulse Oximetry 96 96 96 Oxygen Delivery Al thod 01/06/23 11:01 01/06/23 11:15 01/06/23 11:30 Temperature Pulse Rate 76 73 79 Pulse Rate [Pulse Oximeter] Respiratory Rate Blood Pressure 132/74 Blood Pressure [Ri ght Radial Artery] Pulse Oximetry 94 94 94 Oxygen Delivery Al thod 01/06/23 11:31 01/06/23 11:45 01/06/23 12:00 Temperature Pulse Rate 74 73 80 Pulse Rate [Pulse Oximeter] Respiratory Rate Blood Pressure 108/64 Blood Pressure [Ri ght Radial Artery] Pulse Oximetry 94 94 95 Oxygen Delivery Al thod 01/06/23 12:01 01/06/23 12:15 01/06/23 12:30 Temperature Pulse Rate 73 80 78 Pulse Rate [Pulse Oximeter] Respiratory Rate Blood Pressure 119/68 Blood Pressure [Ri ght Radial Artery] Pulse Oximetry 94 98 97 Oxygen Delivery Al thod 01/06/23 12:32 01/06/23 12:45 01/06/23 13:00 Temperature Pulse Rate 78 79 73 Pulse Rate [Pulse Oximeter] Respiratory Rate Blood Pressure 142/77 H Blood Pressure [Ri ght Radial Artery] Pulse Oximetry 96 96 94 Oxygen Delivery Al thod 01/06/23 13:02 01/06/23 13:15 01/06/23 13:30 Temperature Pulse Rate 75 81 80 Pulse Rate [Pulse Oximeter] Respiratory Rate Blood Pressure 134/76 Blood Pressure [Ri ght Radial Artery] Pulse Oximetry 96 96 90 Oxygen Delivery Al thod 01/06/23 13:31 01/06/23 13:45 01/06/23 18:21 Temperature 98.6 F Pulse Rate 81 81 87 Pulse Rate [Pulse Oximeter] Respiratory Rate 16 Blood Pressure 122/65 133/67 Blood Pressure [Ri ght Radial Artery] Pulse Oximetry 93 96 100 Oxygen Delivery Me thod Room Air 01/06/23 18:26 01/06/23 18:31 01/06/23 18:36 Temperature Pulse Rate 90 90 89 Pulse Rate [Pulse Oximeter] Respiratory Rate 16 16 16 Blood Pressure 127/65 119/72 121/66 Blood Pressure [Ri ght Radial Artery] Pulse Oximetry 100 100 100 Oxygen Delivery Me thod Room Air Room Air Room Air 01/06/23 18:41 01/06/23 18:46 01/06/23 18:52 Temperature Pulse Rate 87 86 97 Pulse Rate [Pulse Oximeter] Respiratory Rate 16 16 16 Blood Pressure 105/79 119/65 121/67 Blood Pressure [Ri ght Radial Artery] Pulse Oximetry 100 100 100 Oxygen Delivery Me thod Room Air Room Air Room Air 01/06/23 18:57 01/06/23 19:02 01/06/23 19:30 Temperature 99.8 F H Pulse Rate 85 94 107 H Pulse Rate [Pulse Oximeter] Respiratory Rate 16 16 16 Blood Pressure 118/63 115/63 Blood Pressure [Ri ght Radial Artery] 118/71 Pulse Oximetry 100 100 Oxygen Delivery Me thod Room Air Room Air Room Air 01/06/23 19:30 01/06/23 20:30 01/06/23 23:00 Temperature 99.8 F H 98.9 F Pulse Rate Pulse Rate [Pulse Oximeter] 107 H 108 H Respiratory Rate 16 16 16 Blood Pressure Blood Pressure [Ri ght Radial Artery] 118/71 111/65 Pulse Oximetry 94 94 Oxygen Delivery Me thod Room Air Room Air 01/06/23 19:45 01/06/23 20:00 01/06/23 20:15 Temperature 99.0 F 98.3 F 98.6 F Pulse Rate Pulse Rate [Pulse Oximeter] 109 H 120 H 108 H Respiratory Rate 16 18 16 Blood Pressure Blood Pressure [Ri ght Radial Artery] 121/72 121/78 116/69 Pulse Oximetry 96 96 94 Oxygen Delivery Me thod Room Air Room Air Room Air 01/06/23 22:00 01/06/23 20:30 01/06/23 22:00 Temperature 98.5 F 98.9 F 98.5 F Pulse Rate Pulse Rate [Pulse Oximeter] 116 H 108 H 116 H Respiratory Rate 16 16 16 Blood Pressure Blood Pressure [Ri ght Radial Artery] 126/78 111/65 126/78 Pulse Oximetry 93 94 93 Oxygen Delivery Me thod Room Air Room Air Room Air 01/06/23 23:00 01/07/23 00:00 01/07/23 01:00 Temperature 98.4 F 98.3 F Pulse Rate Pulse Rate [Pulse Oximeter] 107 H 111 H 112 H Respiratory Rate 16 16 18 Blood Pressure Blood Pressure [Ri ght Radial Artery] 102/68 98/65 126/77 Pulse Oximetry 93 94 95 Oxygen Delivery Me thod Room Air Room Air Room Air 01/07/23 02:00 01/07/23 02:49 01/07/23 07:50 Temperature 98.1 F 98.1 F 98.1 F Pulse Rate Pulse Rate [Pulse Oximeter] 108 H 108 H 82 Respiratory Rate 16 16 18 Blood Pressure Blood Pressure [Ri ght Radial Artery] 107/60 107/60 134/85 Pulse Oximetry 94 94 96 Oxygen Delivery Me thod Room Air Room Air Room Air 01/07/23 07:50 Temperature Pulse Rate Pulse Rate [Pulse Oximeter] 99 Respiratory Rate Blood Pressure Blood Pressure [Ri ght Radial Artery] Pulse Oximetry Oxygen Delivery Me thod Cardiovascular regular rate and rhythm. Lungs clear to auscultation bilaterally. Abdomen positive bowel sounds soft and nontender. Extremities - no edema is noted. Skin is warm and dry without rashes. DS: Data Data Completed and Pending Labs on day of discharge: Labs from last 24 hours 01/07/23 01/06/23 06:38 08:53 WBC 12.15 H RBC 4.22 L Hgb 12.6 L Hct 38.2 MCV 91 MCH 30 MCHC 33 RDW Coeff of Robert 13.1 Plt Count 227 Neut % (Auto) 81.7 H Lymph % (Auto) 9.5 L [place] % (Auto) 8.6 Eos % (Auto) 0.0 Baso % (Auto) 0.0 Neut # (Auto) 9.90 H Lymph # (Auto) 1.20 [place] # (Auto) 1.00 H Eos # (Auto) 0.00 Baso # (Auto) 0.00 Sodium 133 L 136 Potassium 5.0 4.6 Chloride 104 Carbon Dioxide 27 BUN 34 H 32 H Creatinine 1.4 1.3 Estimated Creat Clear 48.11 51.81 Estimated GFR 50 55 Glucose 168 H Calcium 9.0 SARS-CoV-2 (PCR) Negative SARS-CoV-2 Discharge Plan Discharge Disposition: Home w/ Parent or Adult Date of Admission: 01/06/23 20:23 Attending Provider on Discharge: Genaro Freedman Consulting Providers: Debbie Liang; Katt Jesus; Horace Rangel; Physician,IN; Toi Hensley; Genaro Salguero; Sary Chávez; Tae Cevallos; Nelda Teresa; Jia Pryor; Maria Guadalupe Hernandez; Victoriano Graf; Edward Kern; Hoa Cabrera; Florentino Thornton; Armando Estevez; Marta Aguila; Bong Mackey; Bruno Tomas; Luz Elena Estevez; Mel Smart; Sharla Calzada; Jorge Hyman; Huey Escalante; Brijesh Johnson; Sammie Soler; Rosa Maria Arias; Jeremias Eason Primary Care Provider: Genaro Freedman Condition: Improved Anticipated Discharge Date/Time: 01/07/23 11:08 Discharge Medications: New sennosides [Senna Lax] 8.6 mg Tablet 17.2 mg PO BID PRN (Reason: constipation) Qty: 100 0RF aspirin [Aspirin Childrens] 81 mg tablet,chewable 81 mg PO BID 30 Days Qty: 60 0RF acetaminophen 500 mg capsule 500 - 1,000 mg PO Q6H MDD 4000mg per day PRN (Reason: pain) Qty: 100 0RF oxycodone 5 mg Tablet 2.5 - 5 mg PO Q4-6H MDD 6 tabs per day PRN (Reason: Pain) Qty: 42 0RF Rx Instructions: Minimize. Discontinue as soon as possible Xarelto 10 mg tablet 10 mg PO DAILY 4 Days Qty: 4 0RF Rx Instructions: Take this medication daily for 4 days, then Aspirin 81mg twice daily for 30 days Continued latanoprost 0.005 % drops ophthalmic (eye) metformin 500 mg tablet 500 mg PO BID lisinopril 20 mg tablet 20 mg PO DAILY (DME) Accu-Chek Guide test strips Strip MISCELLANEOUS simvastatin 40 mg tablet 40 mg PO QPM glipizide 5 mg tablet 5 mg PO BID Jardiance 10 mg tablet 10 mg PO DAILY Changed insulin aspart U-100 [Novolog FlexPen U-100 Insulin] 100 unit/mL (3 mL) insulin pen 8 unit subcut QACDINNER 90 Days Qty: 7.2 0RF insulin glargine [Lantus Solostar U-100 Insulin] 100 unit/mL (3 mL) insulin pen 20 unit subcut QPM 90 Days Qty: 18 0RF Discontinued metformin 1,000 mg tablet 1,000 mg PO BID Discharge Orders: Discharge Order (Routine); Ordered 01/07/23 Ordered By: Genaro Freedman Consulting provider completed their portion of the discharge: Yes Activity Level: Activity as Tolerated, No strenuous activity and Weight Bearing as Tolerated Activity Detail: Keep dressing on for 1 week. Dressing is waterproof. May shower. Surgical glue covers the wound. Attend Out patient physical therapy. Ice and elevate operative extremity without restriction. Wear compression stockings for 1 month post surgery. May remove for 1 hour per day. Ambulate every hour throughout the day. If you drive, Do not drive while taking narcotic pain medication. Do not drink alcohol while taking narcotic pain medication. If you drive, May drive when safe to do so and have full function of the extremities, this may take 6 weeks or more. Notify Orthopedics with any questions or concerns. ([phone]) Discharge Diet: Diabetic and Heart Healthy (2 gm sodium, low fat) Follow Up Appointments: Genaro Freedman MD [Primary Care Provider] - Melani Sutherland PA-C [Physician Enterprise Project Manager] - 01/14/23 10:00 am (Follow up with Melani Sutherland at the [facility]. Patient needs to schedule with Dr. Julian in 6-weeks. ) Forms: Work/School Release, [facility] Info Instructions Discharge Comments: Check blood sugars four times a day for the next week. Return appointment with Orthopedics ANA 1 week Return appoint with Dr. Julian, orthopedics in 6 weeks Please schedule outpatient physical therapy for next week, eval and treat, left total hip arthroplasty
[2023-01-07] MEDS: RIVAROXABAN 10 MG TABLET PO (09:29)
[2023-01-07] MEDS: SENNOSIDES 1 TAB TABLET 2 TAB PO (09:29)
--- NOTE | 2023-01-07 09:38 | P.ORPN_ITS ---
Subjective Subjective Time Seen by Provider: 07:00 Date Seen: 01/07/23 Principal diagnosis: Status post left hip replacement for comminuted left hip fracture & OA Interval history: Derek is comfortable this morning. He states he has no pain. He has ambulated to the bathroom he feels he can go home today. Does not feel he needs halfway facility. Ortho Exam Narrative Exam Narrative: Alert and oriented x3. Patient is in no acute distress. Converses without labored breathing. Hearing is grossly intact. Ambulates with a walker. Examination of the left hip shows mild soft tissue edema. Mild ecchymosis. Dressing is intact. No sign of infection. No erythema or warmth or sign of infection. Bilateral calves are soft and nontender. CMS intact left lower extremity. Quad strength is 5/5. Const Vital Signs, click to edit/add: Vital Signs - 24 hr 01/06/23 10:50 01/06/23 10:51 01/06/23 11:00 Temperature Pulse Rate 75 78 80 Pulse Rate [Pulse Oximeter] Respiratory Rate Blood Pressure 137/69 Blood Pressure [Right Radial Artery] Pulse Oximetry 96 96 96 Oxygen Delivery Method 01/06/23 11:01 01/06/23 11:15 01/06/23 11:30 Temperature Pulse Rate 76 73 79 Pulse Rate [Pulse Oximeter] Respiratory Rate Blood Pressure 132/74 Blood Pressure [Right Radial Artery] Pulse Oximetry 94 94 94 Oxygen Delivery Method 01/06/23 11:31 01/06/23 11:45 01/06/23 12:00 Temperature Pulse Rate 74 73 80 Pulse Rate [Pulse Oximeter] Respiratory Rate Blood Pressure 108/64 Blood Pressure [Right Radial Artery] Pulse Oximetry 94 94 95 Oxygen Delivery Method 01/06/23 12:01 01/06/23 12:15 01/06/23 12:30 Temperature Pulse Rate 73 80 78 Pulse Rate [Pulse Oximeter] Respiratory Rate Blood Pressure 119/68 Blood Pressure [Right Radial Artery] Pulse Oximetry 94 98 97 Oxygen Delivery Method 01/06/23 12:32 01/06/23 12:45 01/06/23 13:00 Temperature Pulse Rate 78 79 73 Pulse Rate [Pulse Oximeter] Respiratory Rate Blood Pressure 142/77 H Blood Pressure [Right Radial Artery] Pulse Oximetry 96 96 94 Oxygen Delivery Method 01/06/23 13:02 01/06/23 13:15 01/06/23 13:30 Temperature Pulse Rate 75 81 80 Pulse Rate [Pulse Oximeter] Respiratory Rate Blood Pressure 134/76 Blood Pressure [Right Radial Artery] Pulse Oximetry 96 96 90 Oxygen Delivery Method 01/06/23 13:31 01/06/23 13:45 01/06/23 18:21 Temperature 98.6 F Pulse Rate 81 81 87 Pulse Rate [Pulse Oximeter] Respiratory Rate 16 Blood Pressure 122/65 133/67 Blood Pressure [Right Radial Artery] Pulse Oximetry 93 96 100 Oxygen Delivery Method Room Air 01/06/23 18:26 01/06/23 18:31 01/06/23 18:36 Temperature Pulse Rate 90 90 89 Pulse Rate [Pulse Oximeter] Respiratory Rate 16 16 16 Blood Pressure 127/65 119/72 121/66 Blood Pressure [Right Radial Artery] Pulse Oximetry 100 100 100 Oxygen Delivery Method Room Air Room Air Room Air 01/06/23 18:41 01/06/23 18:46 01/06/23 18:52 Temperature Pulse Rate 87 86 97 Pulse Rate [Pulse Oximeter] Respiratory Rate 16 16 16 Blood Pressure 105/79 119/65 121/67 Blood Pressure [Right Radial Artery] Pulse Oximetry 100 100 100 Oxygen Delivery Method Room Air Room Air Room Air 01/06/23 18:57 01/06/23 19:02 01/06/23 19:30 Temperature 99.8 F H Pulse Rate 85 94 107 H Pulse Rate [Pulse Oximeter] Respiratory Rate 16 16 16 Blood Pressure 118/63 115/63 Blood Pressure [Right Radial Artery] 118/71 Pulse Oximetry 100 100 Oxygen Delivery Method Room Air Room Air Room Air 01/06/23 19:30 01/06/23 20:30 01/06/23 23:00 Temperature 99.8 F H 98.9 F Pulse Rate Pulse Rate [Pulse Oximeter] 107 H 108 H Respiratory Rate 16 16 16 Blood Pressure Blood Pressure [Right Radial Artery] 118/71 111/65 Pulse Oximetry 94 94 Oxygen Delivery Method Room Air Room Air 01/06/23 19:45 01/06/23 20:00 01/06/23 20:15 Temperature 99.0 F 98.3 F 98.6 F Pulse Rate Pulse Rate [Pulse Oximeter] 109 H 120 H 108 H Respiratory Rate 16 18 16 Blood Pressure Blood Pressure [Right Radial Artery] 121/72 121/78 116/69 Pulse Oximetry 96 96 94 Oxygen Delivery Method Room Air Room Air Room Air 01/06/23 22:00 01/06/23 20:30 01/06/23 22:00 Temperature 98.5 F 98.9 F 98.5 F Pulse Rate Pulse Rate [Pulse Oximeter] 116 H 108 H 116 H Respiratory Rate 16 16 16 Blood Pressure Blood Pressure [Right Radial Artery] 126/78 111/65 126/78 Pulse Oximetry 93 94 93 Oxygen Delivery Method Room Air Room Air Room Air 01/06/23 23:00 01/07/23 00:00 01/07/23 01:00 Temperature 98.4 F 98.3 F Pulse Rate Pulse Rate [Pulse Oximeter] 107 H 111 H 112 H Respiratory Rate 16 16 18 Blood Pressure Blood Pressure [Right Radial Artery] 102/68 98/65 126/77 Pulse Oximetry 93 94 95 Oxygen Delivery Method Room Air Room Air Room Air 01/07/23 02:00 01/07/23 02:49 01/07/23 07:50 Temperature 98.1 F 98.1 F 98.1 F Pulse Rate Pulse Rate [Pulse Oximeter] 108 H 108 H 82 Respiratory Rate 16 16 18 Blood Pressure Blood Pressure [Right Radial Artery] 107/60 107/60 134/85 Pulse Oximetry 94 94 96 Oxygen Delivery Method Room Air Room Air Room Air 01/07/23 07:50 Temperature Pulse Rate Pulse Rate [Pulse Oximeter] 99 Respiratory Rate Blood Pressure Blood Pressure [Right Radial Artery] Pulse Oximetry Oxygen Delivery Method Assessment and Plan Assessment and plan (1) Closed fracture of left hip: Problem details: He had a successful surgery on the day of admission. His postop hemoglobin was in the 12 range. He was ambulating to the bathroom with a walker without any trouble on the day of discharge. He did not require any assistance. Status: Acute Assessment and Plan: Plan for discharge is today to home today DVT prophylaxis includes Xarelto 10 mg daily for total of 5 days, then aspirin 81 mg twice daily for 30 days, Wilmer stockings x1 month may remove for 1 hr per day, frequent ambulation Remove dressing 1 week. Observe wound and phone Orthopedics with any questions or concerns Use Ice on operative hip unrestricted. Return to clinic in 1 week with PA for a wound check Return to clinic in [address] Julian Minimize narcotic use. Wean off and discontinue soon as possible. Activities as tolerated. No strenuous activity. Attend outpt PT (2) Insulin dependent type 2 diabetes mellitus: Problem details: His eating is back to normal and his blood sugar this morning is 250. Will resume his normal diabetes meds. Status: Acute (3) Hypertension: Problem details: Blood pressure was well controlled in the hospital in the 100s to 120s over 60s to 70s. Status: Acute
--- NOTE | 2023-01-07 13:56 | PC.NURSE ---
Pt calm and cooperative during shift. Pt is a SBA with walker. Pt discharged home with at 1335. Extensive education gone over with , son and daughter in law about care needed, medications, follow up and setting up physical therapy. PT and OT went over education with family prior to discharge as well. Pt's family has a list of devices/items that they will order picker/assembler to make the home a safer environment. Pt's son and daughter in law will be staying at the home to help with cares/ Pt safety.
--- NOTE | 2023-01-10 16:23 | PC.SOCIAL ---
Social work: Received call from pt's dtr Esteban who states she has been working with [facility] for pt to go to that facility for rehab care. Esteban states the family did not understand what level of assistance pt would need when he discharged home and they are not able to care for him at home. Esteban requested social work specialist contact Ada in admissions at [facility] and fax over any requested information for evaluation for admit from home. Called and left message for [facility]. 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
== END 2023-01-07 13:35 | disposition home or self-care (01) | DRG 522 ==
LOC: ED 12:26 → SS 13:58 → MEDSURG 19:33 → SS 20:23 → MEDSURG 20:23
PROVIDERS: Admitting Provider Family Medicine; Emergency Provider Family Medicine; PCP Family Medicine; Visit Provider Orthopaedic Surgery
PROC: 0SRB029 Replacement of Left Hip Joint with Metal on Polyethylene Synthetic Substitute, Cemented, Open Approach (ICD-10-PCS; CPT 27130; principal; 2023-01-06 14:15)
DX: S72.002A Fracture of unspecified part of neck of left femur, initial encounter for closed fracture (principal); M16.12 Unilateral primary osteoarthritis, left hip; S00.93XA Contusion of unspecified part of head, initial encounter; M25.532 Pain in left wrist; I10 Essential (primary) hypertension; E11.9 Type 2 diabetes mellitus without complications; Z79.4 Long term (current) use of insulin; E78.5 Hyperlipidemia, unspecified; W01.0XXA Fall on same level from slipping, tripping and stumbling without subsequent striking against object, initial encounter; Y92.002 Bathroom of unspecified non-institutional (private) residence as the place of occurrence of the external cause
CPT/HCPCS: 01214; 36415; 73110; 73501; 73502; 73700; 76000; 76942; 80048; 82565; 82962; 84132; 84295; 84520; 85025; 87635; 93005; 97110; 97116; 97162; 97165; 97530; 97535; 99140; 99284; 99285; A9270; C1776; J0330; J0690; J1100; J1170; J2250; J2370; J2704; J2795; J3010; J3490; J7120

== ENCOUNTER 2023-01-11 13:03 | Outpatient (CLI) | payer OTHER, SELFPAY | END 2023-01-11 13:04 | disposition home or self-care (01) | LOC: AMB 01-13 11:04 | PROVIDERS: PCP Family Medicine; Visit Provider Family Medicine | DX: M54.2 Cervicalgia (principal) | CPT/HCPCS: A0425; A0427 ==

== ENCOUNTER 2023-01-11 13:34 | Observation (INO) | payer OTHER, SELFPAY ==
[2023-01-11 13:41] VITALS: BP 119/68; PULSE 96; RESP 18; TEMP 36.6; O2SAT 97; BMI 27.2
--- NOTE | 2023-01-11 13:50 | CRLHL7_ITS ---
For Patients: As a result of the Century Cures Act, medical imaging exams and procedure reports are released immediately into your electronic medical record. You may view this report before your referring provider. If you have questions, please contact your health care provider. Indication: Pain post fall Comparison: None available. Technique: AP internal, external rotation, and scapular-Y views of the left shoulder were obtained Findings: There is no displaced fracture or dislocation. Degenerative changes of the acromioclavicular and glenohumeral joints are appreciated. The soft tissues are otherwise grossly unremarkable. 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 Dictated by Rancho Parks MD @ 01/11/2023 2:48:11 PM (Electronically Signed)
--- NOTE | 2023-01-11 13:50 | CRLHL7_ITS ---
For Patients: As a result of the Century Cures Act, medical imaging exams and procedure reports are released immediately into your electronic medical record. You may view this report before your referring provider. If you have questions, please contact your health care provider. INDICATION: Ball. TECHNIQUE: Head CT without contrast. COMPARISON: None. FINDINGS: Periventricular areas of low attenuation, likely due to chronic small vessel ischemic changes. Generalized volume loss. Atherosclerosis. The study is degraded by motion and streak artifact predominantly at the skullbase which limits evaluation at these levels. No intracranial hemorrhage. No discrete mass or mass effect. There is no midline shift. The basilar cisterns are patent. No hydrocephalus. The comer-white matter interface is otherwise preserved. No acute osseous abnormality. No extracalvarial soft tissue abnormality. The mastoid air cells are clear. The paranasal sinuses are well-aerated. The visualized portions of the orbits and globes are unremarkable. IMPRESSION: No acute intracranial process per unenhanced head CT given the above constraints. Please note that all CT scans at this facility use dose modulation, iterative reconstruction, and/or weight-based dosing when appropriate to reduce radiation dose to as low as reasonably achievable. Dictated by Haris Edwards MD @ 01/11/2023 2:46:20 PM (Electronically Signed)
--- NOTE | 2023-01-11 14:00 | ED_ITS ---
HPI - Weakness General Date Seen: 01/11/23 Chief complaint: Shoulder Injury/Pain Stated complaint: Post surgical Hip and Neck Pain Time Seen by Provider: 01/11/23 13:40 Source: patient, family and EMS Mode of arrival: EMS Limitations: no limitations History of Present Illness HPI Narrative: Patient is an 82-year-old gentleman who presents here from home, he was hospitalized here after a fall on , had total hip replacement done, for hip fracture, he was sent home on Tuesday, they been struggling to take care with him there. They thought he was discharged too early, and the supports were not in place. There were questioning whether not he has UTI now, he also fell and hit his head. Has some right shoulder discomfort too, no fevers chills, and is a 2 person assist at the best at times. MD Complaint: generalized weakness Related Data Home Medications Medication Instructions Recorded Confirmed blood sugar diagnostic (Accu-Chek 01/06/23 01/06/23 Guide test strips) empagliflozin 10 mg tablet 10 mg PO DAILY 01/06/23 01/06/23 (Jardiance) latanoprost 0.005 % eye drops drp ophthalmic (eye) 01/06/23 lisinopril 20 mg tablet 20 mg PO DAILY 01/06/23 01/06/23 metformin 500 mg tablet 500 mg PO BID 01/06/23 01/06/23 simvastatin 40 mg tablet 40 mg PO QPM 01/06/23 01/06/23 glipizide 5 mg tablet 5 mg PO BID 01/07/23 01/07/23 Previous Rx's Medication Instructions Recorded acetaminophen 500 mg capsule 500 - 1,000 mg PO Q6H PRN pain 01/07/23 #100 caps aspirin 81 mg chewable tablet 81 mg PO BID for DVT prophylaxis 01/07/23 (Aspirin Childrens) 30 days #60 tabs insulin aspart U-100 100 unit/mL 8 unit (0.08 mL) subcut QACDINNER 01/07/23 (3 mL) subcutaneous pen (Novolog 90 days #7.2 mL FlexPen U-100 Insulin aspart) insulin glargine 100 unit/mL (3 20 unit (0.2 mL) subcut QPM 90 01/07/23 mL) subcutaneous pen (Lant days #18 mL Solostar U-100 Insulin) oxycodone 5 mg tablet 2.5 - 5 mg PO Q4-6H PRN Pain #42 01/07/23 tabs rivaroxaban 10 mg tablet (Xarelto) 10 mg PO DAILY DVT prophylaxis 4 01/07/23 days #4 tabs sennosides 8.6 mg tablet (Senna 17.2 mg PO BID PRN constipation 01/07/23 Lax) #100 tabs Allergies Allergy/AdvReac Type Severity Reaction Status Date / Time No Known Drug Allergies Allergy Verified 01/06/23 08:41 Review of Systems Status of ROS: Reports: 10 or more systems reviewed and unremarkable except as noted in History and below PFSH [facility] Medical History Hypertension ?I10 - Essential (primary) hypertension (ICD-10) Insulin dependent type 2 diabetes mellitus ?E11.9 - Type 2 diabetes mellitus without complications (ICD-10) ?Z79.4 - assisted (current) use of insulin (ICD-10) Surgical History History of appendectomy ?Z90.49 - Acquired absence of other specified parts of digestive tract (ICD- 10) Family History Brother Coronary artery disease Social History Narrative: Derek is a retired from the [employer]. He lives with his in their own home. Smoking Status: Never smoker Do you use any of these nicotine containing products: None Second hand tobacco smoke exposure: No How often do you have a drink containing alcohol: never How often do you have six or more drinks on one occasion: Never AUDIT-C Alcohol total score: 0 Non-prescribed substance use: denies use service: No Exam Narrative: Exam Narrative: Patient is seen in room 3, alert and oriented, but is speaking to me about the are OTC. I am not sure he is totally cognitively intact. Some bruising is noted over the left side of his head, his daughter in-law tells me is from a fall. No complaints of neck pain is right shoulder is sore, pupils are equal round reactive to light his TMs normal oropharynx normal, no cervical spine tenderness he moves all extremities independently and well. Chest is good air entry bilaterally with no wheezing crackles noted heart sounds are normal, abdomen is soft, rectus diastasis, no tenderness to palpation, moves all extremities independently well, but is wearing his Wilmer stockings, Const: Vital Signs, click to edit/add: Vital Signs - 24 hr 01/11/23 13:41 Temperature 97.8 F Pulse Rate [Right Pulse Oximeter] 96 Respiratory Rate 18 Blood Pressure [Ri ght Upper Arm] 119/68 Pulse Oximetry 97 Oxygen Delivery Me thod Room Air Documenting provider has reviewed patient's vital signs: yes Course Course Hospital Course: And CT does not show anything acute by my review, shoulder x-ray is also nonacute, electrolytes show a low sodium of 127 elevated creatinine 3.1, this goes together with his finding of a L in room urinary retention, he feels much better after drainage of this fluid fluid. Urinary transient could be secondary to prostatism would also be secondary to use of pain medication for his more recent hip replacement, secondary to trauma. I would recommend admission at this point, I would speak to the inpatient physician, we will wait to the UA comes back to see if he needs antibiotics. Vital Signs Vital signs: Initial Vital Signs Temperature 97.8 F 01/11/23 13:41 Temperature Source Temporal Artery Scan 01/11/23 13:41 Pulse Rate 96 01/11/23 13:41 Respiratory Rate 18 01/11/23 13:41 Blood Pressure 119/68 01/11/23 13:41 Blood Pressure Mean 85 01/11/23 13:41 Blood Pressure Position Sitting 01/11/23 13:41 Pulse Oximetry 97 01/11/23 13:41 Oxygen Delivery Method Room Air 01/11/23 13:41 Vital Signs Temperature 97.8 F 01/11/23 13:41 Pulse Rate 96 01/11/23 13:41 Respiratory Rate 18 01/11/23 13:41 Blood Pressure 119/68 01/11/23 13:41 Pulse Oximetry 97 01/11/23 13:41 Oxygen Delivery Method Room Air 01/11/23 13:41 Temperature 97.8 F 01/11/23 13:41 Pulse Rate 96 01/11/23 13:41 Respiratory Rate 18 01/11/23 13:41 Blood Pressure 119/68 01/11/23 13:41 Pulse Oximetry 97 01/11/23 13:41 Oxygen Delivery Method Room Air 01/11/23 13:41 MDM - Weakness MDM Narrative Medical decision making narrative: Life-threatening differential diagnosis considered include stroke, coronary artery disease, pneumonia, and heart failure. Other differential diagnosis include but are not limited to electrolyte imbalances, anemia, medication reactions, and urinary tract infection Medical Records Attestation: I reviewed the patient's medical records. Lab Data Attestation: I reviewed the patient's lab results. Labs: Lab Results 01/11/23 01/11/23 01/11/23 Range/Units 13:48 14:06 14:30 WBC 8.99 (4.50-11.00) K/uL RBC 3.42 L (4.30-5.90) m/uL Hgb 10.2 L (13.5-17.5) gm/dL Hct 30.5 L (37.0-53.0) % MCV 89 (80-100) fL MCH 30 (26-34) pg MCHC 33 (32-36) gm/dL RDW Coeff of Robert 13.0 (11.5-15.5) % Plt Count 272 (140-440) K/uL Neut % (Auto) 74.0 H (42.0-72.0) % Lymph % (Auto) 12.5 L (20-44) % Wilkes % (Auto) 11.3 H (0.0-11.0) % Eos % (Auto) 1.7 (0.0-7.0) % Baso % (Auto) 0.1 (0.0-3.0) % Neut # (Auto) 6.70 (1.7-7.0) K/uL Lymph # (Auto) 1.10 (0.90-2.90) K/uL Wilkes # (Auto) 1.00 H (0.00-0.90) K/UL Eos # (Auto) 0.15 (0.00-0.50) K/uL Baso # (Auto) 0.01 (0.00-0.30) K/uL Sodium 127 L (135-149) mmol/L Potassium 5.1 (3.6-5.1) mmol/L Chloride 96 (96-114) mmol/L Carbon Dioxide 25 (20-32) mmol/L BUN 92 H (7-30) mg/dL Creatinine 3.1 H (0.5-1.5) mg/dL Estimated Creat Clear 21.73 Estimated GFR 19 ml/min Glucose 183 H (60-115) mg/dL Calcium 8.3 L (8.4-10.6) mg/dL C-Reactive Protein 20.4 H (0.5-1.0) mg/dL Urine Color (Yellow) Urine Appearance (Clear) Urine pH (5.0-8.5) Ur Specific [place] (1.000-1.030) Urine Protein (Negative) Urine Glucose (UA) (Negative) Urine Ketones (Negative) Urine Blood (Negative) Urine Nitrite (Negative) Urine Bilirubin (Negative) Urine Urobilinogen (0.2-1.0) Ur Leukocyte Esterase (Negative) SARS-CoV-2 (PCR) Negative SARS-CoV-2 (Negative) Influenza Type A (PCR) Negative PCR FLU A (Negative) Influenza Type B (PCR) Negative PCR FLU B (Negative) RSV (PCR) Negative PCR RSV (Negative) POC Troponin I 0.02 (0.01-0.04) ng/ml 01/11/23 Range/Units 15:07 WBC (4.50-11.00) K/uL RBC (4.30-5.90) m/uL Hgb (13.5-17.5) gm/dL Hct (37.0-53.0) % MCV (80-100) fL MCH (26-34) pg MCHC (32-36) gm/dL RDW Coeff of Robert (11.5-15.5) % Plt Count (140-440) K/uL Neut % (Auto) (42.0-72.0) % Lymph % (Auto) (20-44) % Wilkes % (Auto) (0.0-11.0) % Eos % (Auto) (0.0-7.0) % Baso % (Auto) (0.0-3.0) % Neut # (Auto) (1.7-7.0) K/uL Lymph # (Auto) (0.90-2.90) K/uL [place]kes # (Auto) (0.00-0.90) K/UL Eos # (Auto) (0.00-0.50) K/uL Baso # (Auto) (0.00-0.30) K/uL Sodium (135-149) mmol/L Potassium (3.6-5.1) mmol/L Chloride (96-114) mmol/L Carbon Dioxide (20-32) mmol/L BUN (7-30) mg/dL Creatinine (0.5-1.5) mg/dL Estimated Creat Clear Estimated GFR ml/min Glucose (60-115) mg/dL Calcium (8.4-10.6) mg/dL C-Reactive Protein (0.5-1.0) mg/dL Urine Color Yellow (Yellow) Urine Appearance Clear (Clear) Urine pH 5.0 (5.0-8.5) Ur Specific [place] 1.010 (1.000-1.030) Urine Protein Negative (Negative) Urine Glucose (UA) 2+ A (Negative) Urine Ketones Negative (Negative) Urine Blood 2+ A (Negative) Urine Nitrite Negative (Negative) Urine Bilirubin Negative (Negative) Urine Urobilinogen 0.2 (0.2-1.0) Ur Leukocyte Esterase Negative (Negative) SARS-CoV-2 (PCR) (Negative) Influenza Type A (PCR) (Negative) Influenza Type B (PCR) (Negative) RSV (PCR) (Negative) POC Troponin I (0.01-0.04) ng/ml ECG Data Attestation: I personally reviewed and interpreted this ECG as follows: ECG interpretation date: 01/11/23 Interpretation: Normal sinus rhythm, no acute changes, ventricular rate was 91. Discharge Plan Discharge Clinical Impression: Acute renal failure, Head injury, Acute urinary retention, Acute hyponatremia Patient Disposition: Admitted As Inpatient Condition: Improved Prescriptions: No Action latanoprost 0.005 % drops ophthalmic (eye) metformin 500 mg tablet 500 mg PO BID lisinopril 20 mg tablet 20 mg PO DAILY (DME) Accu-Chek Guide test strips Strip MISCELLANEOUS simvastatin 40 mg tablet 40 mg PO QPM Jardiance 10 mg tablet 10 mg PO DAILY insulin aspart U-100 [Novolog FlexPen U-100 Insulin] 100 unit/mL (3 mL) insulin pen 8 unit subcut QACDINNER 90 Days Qty: 7.2 0RF insulin glargine [Lantus Solostar U-100 Insulin] 100 unit/mL (3 mL) insulin pen 20 unit subcut QPM 90 Days Qty: 18 0RF sennosides [Senna Lax] 8.6 mg Tablet 17.2 mg PO BID PRN (Reason: constipation) Qty: 100 0RF aspirin [Aspirin Childrens] 81 mg tablet,chewable 81 mg PO BID 30 Days Qty: 60 0RF acetaminophen 500 mg capsule 500 - 1,000 mg PO Q6H MDD 4000mg per day PRN (Reason: pain) Qty: 100 0RF oxycodone 5 mg Tablet 2.5 - 5 mg PO Q4-6H MDD 6 tabs per day PRN (Reason: Pain) Qty: 42 0RF Rx Instructions: Minimize. Discontinue as soon as possible Xarelto 10 mg tablet 10 mg PO DAILY 4 Days Qty: 4 0RF Rx Instructions: Take this medication daily for 4 days, then Aspirin 81mg twice daily for 30 days glipizide 5 mg tablet 5 mg PO BID Follow Up/Referrals: Genaro Freedman MD [Primary Care Provider] -
[2023-01-11 14:13] LABS: Basophils Absolute Auto 0.01 K/uL (0.00-0.30); Basophils Percent Auto 0.1 % (0.0-3.0); Eosinophils Absolute Auto 0.15 K/uL (0.00-0.50); Eosinophils Percent Auto 1.7 % (0.0-7.0); Hematocrit 30.5 % (37.0-53.0); Hemoglobin* 10.2 gm/dL (13.5-17.5); Immature Granulocytes Abs Auto 0.04 K/uL (0.00-0.30); Immature Granulocytes Pct Auto 0.4 %; Lymphocytes Percent Auto 12.5 % (20-44); Mean Corpuscular HGB Conc 33 gm/dL (32-36); Mean Corpuscular Hemoglobin 30 pg (26-34); Mean Corpuscular Volume 89 fL (80-100); Monocytes Percent Auto 11.3 % (0.0-11.0); Platelet Count* 272 K/uL (140-440); Red Blood Count 3.42 m/uL (4.30-5.90); White Blood Count* 8.99 K/uL (4.50-11.00)
[2023-01-11 14:20] LABS: Slide Review Reflex No
[2023-01-11 14:27] LABS: Chloride* 96 mmol/L (96-114); Potassium* 5.1 mmol/L (3.6-5.1); Sodium* 127 mmol/L (135-149)
[2023-01-11 14:27] LABS: Troponin, Point-of-Care* 0.02 ng/ml (0.01-0.04)
[2023-01-11 14:30] LABS: Blood Urea Nitrogen* 92 mg/dL (7-30); Carbon Dioxide* 25 mmol/L (20-32); Creatinine* 3.1 mg/dL (0.5-1.5); Est. Creatinine Clearance* 21.73; Estimated Glomerular Filt Rate 19 ml/min
[2023-01-11 14:31] LABS: Calcium* 8.3 mg/dL (8.4-10.6); Glucose* 183 mg/dL (60-115)
[2023-01-11 14:55] LABS: C Reactive Protein* 20.4 mg/dL (0.5-1.0)
[2023-01-11 15:21] LABS: PCR FLU A Negative PCR FLU A (Negative); PCR FLU B Negative PCR FLU B (Negative); PCR RSV Negative PCR RSV (Negative)
[2023-01-11 15:22] LABS: Appearance Urine Clear (Clear); Bilirubin Urine Negative (Negative); Blood Urine 2+ (Negative); Color Urine Yellow (Yellow); Glucose Urine 2+ (Negative); Ketones Urine Negative (Negative); Leukocyte Esterase Urine Negative (Negative); Nitrite Urine Negative (Negative); Protein Urine Negative (Negative); Urobilinogen Urine 0.2 (0.2-1.0)
[2023-01-11 15:22] LABS: SARS PCR* Negative SARS-CoV-2 (Negative)
[2023-01-11 15:32] LABS: WBC Urine 0-2 (0-5)
[2023-01-11] MEDS: ACETAMINOPHEN 500 MG TABLET 1000 MG PO (15:38)
[2023-01-11 18:37] VITALS: BP 140/70; PULSE 97; RESP 18; TEMP 36.8; O2SAT 97; BMI 30.2
[2023-01-11] MEDS: glipiZIDE 5 MG TABLET PO (21:06)
[2023-01-11] MEDS: ASPIRIN 81 MG TAB.CHEW PO (21:06)
[2023-01-11] MEDS: SODIUM CHLORIDE 0.9 % (FLUSH) 10 ML SYRINGE 5 ML IVF (21:07)
[2023-01-11] MEDS: 0.9 % SODIUM CHLORIDE 500 ML 500 ML IV (21:20)
[2023-01-11] MEDS: LATANOPROST 0.005% OPHTH 1 DROP EYE-BOTH (21:20)
--- NOTE | 2023-01-11 22:45 | PC.NURSE ---
Shift [id number]- Patient arrives from ED this evening, slid from stretcher. and family also at bedside. Family assists in answering intake questions. There is a large bruise to left hip, mepilex in place over surgical site. Catheter in place and draining blood tinged urine- MD updated. He is also up with walker, gait belt, and assist of 1. Denies pain except with movement.
[2023-01-11] MEDS: ACETAMINOPHEN 325 MG TABLET 650 MG PO (22:56)
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
[2023-01-11 23:30] VITALS: BP 97/57; PULSE 87; RESP 16; TEMP 37.2; O2SAT 97
[2023-01-12] VITALS (7 sets, daily range): BP systolic 100–123; BP diastolic 55–75; PULSE 80–93; RESP 16–18; TEMP 36.4–37.1; O2SAT 92–99
[2023-01-12] MEDS: TRAMADOL HCL 50 MG TABLET 25 MG PO ×2 (02:53→07:30)
[2023-01-12] MEDS: ACETAMINOPHEN 325 MG TABLET 650 MG PO ×2 (05:16→21:33)
[2023-01-12 06:18] LABS: HCO3 VBG 27 mmol/L (21-28); Lactate* 0.8 mmol/L (0.5-1.9); PCO2 VBG 46 mmHG (40-50); PO2 VBG 37.9 mmHG (25-47); pH VBG 7.375 (7.32-7.43)
[2023-01-12 06:48] LABS: Chloride* 102 mmol/L (96-114)
[2023-01-12 06:49] LABS: Potassium* 4.8 mmol/L (3.6-5.1); Sodium* 132 mmol/L (135-149)
[2023-01-12 06:51] LABS: Est. Creatinine Clearance* 33.68; Estimated Glomerular Filt Rate 33 ml/min
[2023-01-12 06:52] LABS: Blood Urea Nitrogen* 83 mg/dL (7-30); Carbon Dioxide* 26 mmol/L (20-32); Glucose* 103 mg/dL (60-115)
[2023-01-12 06:53] LABS: Calcium* 8.2 mg/dL (8.4-10.6); Hemoglobin A1C* 6.36 % (0-5.6); Magnesium* 2.4 mg/dL (1.5-2.6); Phosphorus* 4.3 mg/dL (2.5-4.5)
[2023-01-12 07:25] LABS: Thyroid Stimulating Hormone* 0.423 uIU/mL (0.270-4.20)
--- NOTE | 2023-01-12 08:00 | PC.NURSE ---
Pt alert and oriented self and place. Afebrile. Pt reports 6/10 pain in both legs, pain managed with Ice pack, PRN and medications. Pt?s left hip Meplex is CDI. Pt denies chest pain, SOB, and N/V. Pt is voiding, tolerating a regular diet, up A1 with walker and gait belt. Pt slept intermittently throughout night.???
[2023-01-12] MEDS: glipiZIDE 5 MG TABLET PO ×2 (08:19→21:30)
[2023-01-12] MEDS: ASPIRIN 81 MG TAB.CHEW PO ×2 (08:19→21:40)
[2023-01-12] MEDS: SODIUM CHLORIDE 1 GM TABLET PO ×3 (08:19→17:24)
[2023-01-12] MEDS: SODIUM CHLORIDE 0.9 % (FLUSH) 10 ML SYRINGE 5 ML IVF ×2 (08:20→22:04)
--- NOTE | 2023-01-12 12:00 | PM.IMPN1 ---
Progress Note: A&P Assessment and plan (1) Closed fracture of left hip: Problem details: - fall on 01/06/2023, underwent a left total hip arthroplasty on the same date Status: Acute (2) Acute kidney injury: Problem details: - presumably postobstructive given significant improvement after placement of Worrell catheter - continue to follow, avoid nephrotoxins Status: Acute (3) Physical debility: Problem details: - Has relied on his increasingly over the last few years. Needs assistance with ADLs and IADLs. Status: Acute (4) Acute hyponatremia: Problem details: - 127 on 01/11, 132 on 01/13 Status: Acute (5) Diarrhea: Problem details: - Transient, postoperative - check C diff if persistent Status: Acute (6) Postoperative anemia: Problem details: - no evidence of acute bleeding, follow Hgb Status: Acute (7) Head injury: Problem details: - superficial laceration on forehead status post fall on 01/06/2023. CT scan of the head on 01/11/2023 is negative for intracranial abnormality, including no bleed Status: Acute (8) Cognitive impairment: Problem details: - Progressive; MOCA 20/30 on 01/07/2023. Tangential conversation, impulsive, with increasing episodes of confusion and forgetfulness Status: Acute (9) Insulin dependent type 2 diabetes mellitus: Problem details: - continue home medications and SSI Status: Acute (10) Hypertension: Problem details: - intermittent hypotension, will continue to monitor given fall risk - holding home Lisinopril as of 01/11 for KILO Status: Acute Plan - per above - and [id number] updated at bedside, questions answered - holding postoperative Xarelto, renally dosed Lovenox for ppx - appreciate input from therapies and SW regarding disposition planning Subjective Date Seen: 01/12/23 Interval history: No acute events overnight. Tolerating Worrell. Family does not feel that they can safely continue to care for patient at home. Exam Narrative: Exam Narrative: Sitting comfortably in bedside chair, nontoxic in appearance Cardiac exam exhibits regular and rhythm without concerning murmurs Breathing comfortably, no concerning wheezing Wearing Wilmer hose on bilateral lower extremities Mild cognitive impairment is evident, no agitation or behavioral disturbances Const: Vital Signs, click to edit/add: Vital Signs - 24 hr 01/11/23 13:41 01/11/23 18:37 01/11/23 18:37 Temperature 97.8 F 98.2 F Pulse Rate [Pulse Oximeter] 97 Pulse Rate [Right Pulse Oximeter] 96 Respiratory Rate 18 18 Blood Pressure [Ri ght Arm] 140/70 H Blood Pressure [Ri ght Upper Arm] 119/68 Pulse Oximetry 97 97 97 Oxygen Delivery Mi thod Room Air Room Air Room Air 01/11/23 23:30 01/11/23 23:30 01/12/23 03:30 Temperature 98.9 F 98.8 F Pulse Rate [Pulse Oximeter] 87 87 89 Pulse Rate [Right Pulse Oximeter] Respiratory Rate 16 16 18 Blood Pressure [Ri ght Arm] 97/57 L 104/57 L Blood Pressure [Ri ght Upper Arm] Pulse Oximetry 97 96 Oxygen Delivery Mi thod Room Air Room Air 01/12/23 08:11 01/12/23 08:11 01/12/23 11:09 Temperature 97.6 F 97.5 F L Pulse Rate [Pulse Oximeter] 80 80 88 Pulse Rate [Right Pulse Oximeter] Respiratory Rate 16 16 Blood Pressure [Ri ght Arm] 100/55 L 115/61 Blood Pressure [Ri ght Upper Arm] Pulse Oximetry 98 99 Oxygen Delivery Mi thod Room Air Room Air Labs Labs: Laboratory Results - last 24 hr 01/11/23 01/11/23 01/11/23 13:48 14:06 14:30 WBC 8.99 RBC 3.42 L Hgb 10.2 L Hct 30.5 L MCV 89 MCH 30 MCHC 33 RDW Coeff of Robert 13.0 Plt Count 272 Neut % (Auto) 74.0 H Lymph % (Auto) 12.5 L Baker % (Auto) 11.3 H Eos % (Auto) 1.7 Baso % (Auto) 0.1 Neut # (Auto) 6.70 Lymph # (Auto) 1.10 Baker # (Auto) 1.00 H Eos # (Auto) 0.15 Baso # (Auto) 0.01 VBG pH VBG pCO2 VBG pO2 VBG HCO3 Sodium 127 L Potassium 5.1 Chloride 96 Carbon Dioxide 25 BUN 92 H Creatinine 3.1 H Estimated Creat Clear 21.73 Estimated GFR 19 Glucose 183 H Hemoglobin A1c Lactate Calcium 8.3 L Phosphorus Magnesium C-Reactive Protein 20.4 H TSH Urine Color Urine Appearance Urine pH Ur Specific [place] Urine Protein Urine Glucose (UA) Urine Ketones Urine Blood Urine Nitrite Urine Bilirubin Urine Urobilinogen Ur Leukocyte Esterase Urine RBC Urine WBC Ur Squamous Epith Cells Urine Bacteria SARS-CoV-2 (PCR) Negative SARS-CoV-2 Influenza Type A (PCR) Negative PCR FLU A Influenza Type B (PCR) Negative PCR FLU B RSV (PCR) Negative PCR RSV POC Troponin I 0.02 01/11/23 01/12/23 15:07 05:27 WBC RBC Hgb 9.0 L Hct MCV MCH MCHC RDW Coeff of Robert Plt Count Neut % (Auto) Lymph % (Auto) Baker % (Auto) Eos % (Auto) Baso % (Auto) Neut # (Auto) Lymph # (Auto) Baker # (Auto) Eos # (Auto) Baso # (Auto) VBG pH 7.375 VBG pCO2 46 VBG pO2 37.9 VBG HCO3 27 Sodium 132 L Potassium 4.8 Chloride 102 Carbon Dioxide 26 BUN 83 H Creatinine 2.0 H Estimated Creat Clear 33.68 Estimated GFR 33 Glucose 103 Hemoglobin A1c 6.36 H Lactate 0.8 Calcium 8.2 L Phosphorus 4.3 Magnesium 2.4 C-Reactive Protein 17.0 H TSH 0.423 Urine Color Yellow Urine Appearance Clear Urine pH 5.0 Ur Specific [place] 1.010 Urine Protein Negative Urine Glucose (UA) 2+ A Urine Ketones Negative Urine Blood 2+ A Urine Nitrite Negative Urine Bilirubin Negative Urine Urobilinogen 0.2 Ur Leukocyte Esterase Negative Urine RBC 2-5 A Urine WBC 0-2 Ur Squamous Epith Cells None Urine Bacteria None SARS-CoV-2 (PCR) Influenza Type A (PCR) Influenza Type B (PCR) RSV (PCR) POC Troponin I
--- NOTE | 2023-01-12 14:02 | PC.SOCIAL ---
Addendum entered by MICHELLE Anderson 01/12/23 15:50: Received a phone call from Kaitlyn Raya in admissions at [facility]. [facility] can accept pt for admission for tomorrow, however, due to the insurance issues family may have to private pay until the new insurance is effective, which will be 01-17-2023. Kaitlyn was able to speak with pt's daughter in lawEsteban, and discuss this and the family is willing to private pay if needed as they really want the pt at [facility]. This worker will follow up with family and set transportation. Phone call to pt's daughter in lawEsteban. Discussed the acceptance from [facility]. Reiterated that family may be responsible to private pay until insurance is valid on 01-17-2023. Family is aware of this and is fine with private pay for a few days. The family really would like pt at [facility]. Esteban is requesting that pt transport via non-emergency ambulance as they are not comfortable transporting pt to [facility]. Informed Esteban that since pt is getting around well pt will not qualify for the non-emergency ambulance to be covered under insurance. Discussed non-emergency ambulance rates with Esteban. Reviewed and completed the notices to patients regarding charges for services form via phone. Discharge will occur around 10:00 am. Provided update to charge nurse and provided update to Kaitlyn in admissions at [facility]. Completed Preadmission screening. Confirmation# [id number]. Faxed PAS to [facility]. Social work will follow up as necessary. Original Note: Discharge planning- Met with pt and pt's and pt's daughter in lawEsteban, in pt's room to discuss discharge plans. Provided the family with a list of SNF's that are covered under [employer] insurance. Esteban informed that she has already called and had pt's medical insurance plan changed from [employer] to [employer] and was informed that the change would take place effective 01-17-2023. Esteban informed that she spoke with and is under the understanding that [facility] has to have a safe discharge plan for the pt and states that the family is unable to provide care for pt at home, so home is not a safe discharge plan. Informed family that this worker checked with therapy and the therapy recommendation is that pt has a short-term rehab stay at a SNF. Family is agreeable to this option. Family has been in contact with Kaitlyn Torres at [facility] prior to pt coming to [facility]. Family states that [facility] tried to get a waiver for pt to go directly to [facility], however, this was denied. This is the reason the family changed pt's health care plan as they desire for pt to go to [facility]. This worker will follow up with [facility] for possible placement. Provided family with this worker's contact information is there is any further questions. Made a phone call to Kaitlyn Raya in admissions at [facility] at [phone]. Kaitlyn is aware of the family situation and is aware the family changed the health care insurance information as the family provided her with the information. Faxed the referral to Kaitlyn in admissions at [facility] at [phone]. Social Work will follow up as necessary.
--- NOTE | 2023-01-12 17:02 | PC.NURSE ---
Pt calm and cooperative during shift. Pt had no complaints of pain during shift. Pt up in chair most of shift. Pt?s troy has a blood tinge color to it Hospitalist notified. Pt one assist with walker.?Tolerated activity well.
[2023-01-12] MEDS: LATANOPROST 0.005% OPHTH 1 DROP EYE-BOTH (21:29)
[2023-01-12] MEDS: ENOXAPARIN 30 MG/0.3ML INJ SUBCUT (21:30)
[2023-01-12] MEDS: SENNOSIDES/DOCUSATE TABLET 1 TAB PO (21:30)
[2023-01-13] MEDS: bisacodyL 10 MG SUPP.RECT PR (00:10)
[2023-01-13 03:00] VITALS: BP 122/66; PULSE 96; O2SAT 94
[2023-01-13 05:50] LABS: Basophils Absolute Auto 0.02 K/uL (0.00-0.30); Basophils Percent Auto 0.3 % (0.0-3.0); Hematocrit 27.8 % (37.0-53.0); Hemoglobin* 9.3 gm/dL (13.5-17.5); Immature Granulocytes Abs Auto 0.09 K/uL (0.00-0.30); Immature Granulocytes Pct Auto 1.2 %; Lymphocytes Percent Auto 14.7 % (20-44); Mean Corpuscular HGB Conc 34 gm/dL (32-36); Mean Corpuscular Hemoglobin 30 pg (26-34); Mean Corpuscular Volume 90 fL (80-100); Monocytes Percent Auto 12.3 % (0.0-11.0); Neutrophils Percent Auto 67.5 % (42.0-72.0); Platelet Count* 283 K/uL (140-440); RDW Coefficient of Variation % 13.1 % (11.5-15.5); White Blood Count* 7.41 K/uL (4.50-11.00)
[2023-01-13 06:03] LABS: Slide Review Reflex No
[2023-01-13 06:08] LABS: Chloride* 104 mmol/L (96-114)
[2023-01-13 06:09] LABS: Sodium* 134 mmol/L (135-149)
[2023-01-13 06:11] LABS: Creatinine* 1.4 mg/dL (0.5-1.5); Est. Creatinine Clearance* 48.11; Estimated Glomerular Filt Rate 50 ml/min; Potassium* 4.6 mmol/L (3.6-5.1)
[2023-01-13 06:12] LABS: Blood Urea Nitrogen* 55 mg/dL (7-30); Calcium* 8.3 mg/dL (8.4-10.6); Carbon Dioxide* 27 mmol/L (20-32); Glucose* 73 mg/dL (60-115)
[2023-01-13 07:50] VITALS: BP 92/60; PULSE 83; RESP 20; TEMP 36.3; O2SAT 95
[2023-01-13] MEDS: SODIUM CHLORIDE 1 GM TABLET PO (07:58)
[2023-01-13] MEDS: ASPIRIN 81 MG TAB.CHEW PO (08:57)
[2023-01-13] MEDS: glipiZIDE 5 MG TABLET PO (08:57)
[2023-01-13 09:20] VITALS: BP 92/60; PULSE 83; RESP 20; TEMP 36.3
--- NOTE | 2023-01-13 10:27 | PC.NURSE ---
Pt calm and cooperative during shift. Pt had no complaints of pain during shift.? Pt?s urine is a pale-yellow color and has resolved from a blood tinge color. Pt one assist with walker. Pt?s IV removed at 0855am catheter intact. Pt?s simmons is being left in place. Pt to discharge at 1045 via non emergent ambulance to [facility]. Nurse to nurse report given to Clair SRIVASTAVA.?
--- NOTE | 2023-01-13 11:00 | P.DS_ITS ---
DS: Providers Provider Date Seen: 01/13/23 Date of admission: 01/12/23 09:37 Primary care physician: Genaro Freedman MD Admitting Clinician: Victoriano Graf MD Consults: PT, OT, SW Attending Physician on discharge: Katt Jesus MD Date of Discharge: 01/13/23 DS: Diagnosis Discharge Diagnosis (1) Closed fracture of left hip: Status: Acute Problem details: - fall on 01/06/2023, underwent a left total hip arthroplasty on the same date (2) Acute kidney injury: Status: Acute Problem details: - presumably postobstructive given significant improvement after placement of Worrell catheter - creatinine within normal limits upon discharge 01/13 - will leave Worrell catheter in place upon discharge, outpatient Urology follow- up (3) Physical debility: Status: Acute Problem details: - Has relied on his increasingly over the last few years. Needs assistance with ADLs and IADLs. (4) Acute hyponatremia: Status: Acute Problem details: - 127 on 01/11, 132 on 01/12, 134 on 01/13 (5) Diarrhea: Status: Acute Problem details: - Transient, postoperative, resolved during stay (6) Postoperative anemia: Status: Acute Problem details: - no evidence of acute bleeding, follow Hgb (7) Head injury: Status: Acute Problem details: - superficial laceration on forehead status post fall on 01/06/2023. CT scan of the head on 01/11/2023 is negative for intracranial abnormality, including no bleed (8) Cognitive impairment: Status: Acute Problem details: - Progressive; MOCA 20/30 on 01/07/2023. Tangential conversation, impulsive, with increasing episodes of confusion and forgetfulness (9) Insulin dependent type 2 diabetes mellitus: Status: Acute Problem details: - stable during stay (10) Hypertension: Status: Acute Problem details: - intermittent hypotension, asymptomatic DS: Summary Hospital Course Hospital Course: 82-year-old male with recent fall (01/06, s/p hip fracture and PÉREZ) who was discharged home last week and return to the emergency room with concerns of frailty and need for SNF placement. In the emergency room, he was found have acute kidney injury and urinary retention; Worrell catheter was placed and creatinine normalized. Patient also noted to have mild anemia, remained stable throughout stay and appropriate for postoperative status. Peter was medically appropriate for discharge to SNF on 01/13/23; discharged to [facility]. Status at Discharge Functional status at discharge: uses cane/walker Overall status at discharge: patient is progressing back to baseline Time Spent with Patient Time attestation: Total time spent providing and/or coordinating discharge services: Time spent: Greater than 30 minutes Specific discharge activities: Medication reconciliation, care coordination with multidisciplinary team Exam Narrative: Exam Narrative: GEN: Alert and answering questions appropriately with some cognitive impairment evident, eating breakfast in bedside chair HEENT: EOMIs bilaterally, no scleral icterus CV: RRR, No concerning murmurs, rubs, or gallops R: LCTA bilaterally without concerning wheezing, air movement adequate Ext: wwp, no concerning edema Skin: Scattered bruising of extremities, no other concerning skin findings Neuro: No focal deficits Const: Vital Signs, click to edit/add: Vital Signs - 24 hr 01/12/23 11:09 01/12/23 15:34 01/12/23 15:48 Temperature 97.5 F L 98.0 F Pulse Rate Pulse Rate [Pulse Oximeter] 88 84 84 Respiratory Rate 16 18 Blood Pressure Blood Pressure [Ri ght Arm] 115/61 111/62 Pulse Oximetry 99 92 Oxygen Delivery Me thod Room Air Room Air 01/12/23 19:15 01/12/23 23:00 01/12/23 23:00 Temperature 98.5 F 98.5 F Pulse Rate Pulse Rate [Pulse Oximeter] 93 93 87 Respiratory Rate 18 18 18 Blood Pressure Blood Pressure [Ri ght Arm] 123/75 106/59 L Pulse Oximetry 97 96 Oxygen Delivery Me thod Room Air Room Air 01/13/23 03:00 01/13/23 07:50 01/13/23 07:50 Temperature 97.3 F L Pulse Rate Pulse Rate [Pulse Oximeter] 96 83 83 Respiratory Rate 20 Blood Pressure Blood Pressure [Ri ght Arm] 122/66 92/60 Pulse Oximetry 94 95 Oxygen Delivery Me thod Room Air Room Air 01/13/23 09:20 Temperature 97.3 F L Pulse Rate 83 Pulse Rate [Pulse Oximeter] Respiratory Rate 20 Blood Pressure 92/60 Blood Pressure [Ri ght Arm] Pulse Oximetry Oxygen Delivery Me thod DS: Data Data Completed and Pending Labs on day of discharge: Labs from last 24 hours 01/13/23 05:30 WBC 7.41 RBC 3.10 L Hgb 9.3 L Hct 27.8 L MCV 90 MCH 30 MCHC 34 RDW Coeff of Robert 13.1 Plt Count 283 Neut % (Auto) 67.5 Lymph % (Auto) 14.[address] Lane % (Auto) 12.3 H Eos % (Auto) 4.0 Baso % (Auto) 0.3 Neut # (Auto) 5.00 Lymph # (Auto) 1.10 Lane # (Auto) 0.90 Eos # (Auto) 0.30 Baso # (Auto) 0.02 Sodium 134 L Potassium 4.6 Chloride 104 Carbon Dioxide 27 BUN 55 H Creatinine 1.4 Estimated Creat Clear 48.11 Estimated GFR 50 Glucose 73 Calcium 8.3 L Discharge Plan Discharge Disposition: [facility] Date of Admission: 01/12/23 09:37 Attending Provider on Discharge: Katt Jesus Primary Care Provider: Genaro Freedman Condition: Improved Anticipated Discharge Date/Time: 01/13/23 10:30 Discharge Medications: New tramadol 50 mg Tablet 25 mg PO Q4H PRNQty: 20 0RF bisacodyl 10 mg Suppository 10 mg MI DAILY PRN (Reason: Constipation) Qty: 12 0RF Continued Xarelto 10 mg tablet 10 mg PO DAILY 4 Days Qty: 4 0RF Rx Instructions: Take this medication daily for 4 days (start 01/13), then Aspirin 81mg twice daily for 30 days latanoprost 0.005 % drops 1 drp ophthalmic (eye) HS metformin 500 mg tablet 500 mg PO BID lisinopril 20 mg tablet 20 mg PO DAILY (DME) Accu-Chek Guide test strips Strip MISCELLANEOUS simvastatin 40 mg tablet 40 mg PO HS Jardiance 10 mg tablet 10 mg PO DAILY insulin aspart U-100 [Novolog FlexPen U-100 Insulin] 100 unit/mL (3 mL) insulin pen 8 unit subcut QACDINNER 90 Days Qty: 7.2 0RF insulin glargine [Lantus Solostar U-100 Insulin] 100 unit/mL (3 mL) insulin pen 20 unit subcut QPM 90 Days Qty: 18 0RF sennosides [Senna Lax] 8.6 mg Tablet 17.2 mg PO BID PRN (Reason: constipation) Qty: 100 0RF aspirin [Aspirin Childrens] 81 mg tablet,chewable 81 mg PO BID 30 Days Qty: 60 0RF acetaminophen 500 mg capsule 500 - 1,000 mg PO Q6H MDD 4000mg per day PRN (Reason: pain) Qty: 100 0RF glipizide 5 mg tablet 5 mg PO BID Discontinued oxycodone 5 mg Tablet 2.5 - 5 mg PO Q4-6H MDD 6 tabs per day PRN (Reason: Pain) Qty: 42 0RF Rx Instructions: Minimize. Discontinue as soon as possible Discharge Orders: Discharge Order (Routine); Ordered 01/13/23 Ordered By: Katt Jesus Additional Instructions: Keep catheter in place for now, consider an outpatient appt with either Dr. Freedman or Urology to discuss removal in 4-6 weeks). Activity Level: Activity as Tolerated Activity Detail: per PT/OT Discharge Diet: Diabetic Follow Up Appointments: [facility] [Outside] (Patient discharged [facility] Genaro Freedman MD [Primary Care Provider] - (Please have [facility] make an appt with Dr. Freedman 1 week after SNF discharge) Discharge Comments: Worrell catheter placed 01/11 Wound Care: n/a Ostomy Care: n/a Admit to: SNF Discharge Potential: Fair Length of Stay: 30-90 days Can use facility standing orders?: Yes Code Status: DNR/DNI TEDs: Bilateral Knee Rehab Potential: Fair Therapy: Physical Therapy and Occupational Therapy Therapy Orders: Evaluate and Treat, Gait Training and Total Hip Protocol Oxygen: No Urinary Catheter: Yes Worrell Catheter Citizen [place] Size: 16 Glucose Checks: BID Next INR: n/a Orders are good >30 days: Yes Signature: Katt Jesus MD
== END 2023-01-13 11:10 ==
LOC: ED 15:31 → MEDSURG 01-12 10:46
PROVIDERS: Family Medicine; Admitting Provider Internal Medicine; Emergency Provider Family Medicine; PCP Family Medicine; Visit Provider Internal Medicine
DX: E87.1 Hypo-osmolality and hyponatremia (principal); N17.9 Acute kidney failure, unspecified; R33.9 Retention of urine, unspecified; G31.84 Mild cognitive impairment of uncertain or unknown etiology; D64.9 Anemia, unspecified; R79.89 Other specified abnormal findings of blood chemistry; R26.9 Unspecified abnormalities of gait and mobility; E11.9 Type 2 diabetes mellitus without complications; R39.15 Urgency of urination; R35.0 Frequency of micturition; Z79.4 Long term (current) use of insulin; M25.511 Pain in right shoulder; M62.81 Muscle weakness (generalized); I10 Essential (primary) hypertension; Z79.84 Long term (current) use of oral hypoglycemic drugs; W19.XXXA Unspecified fall, initial encounter; Z73.89 Other problems related to life management difficulty; S01.81XA Laceration without foreign body of other part of head, initial encounter; Z90.49 Acquired absence of other specified parts of digestive tract; Z96.0 Presence of urogenital implants; R62.7 Adult failure to thrive; Z74.2 Need for assistance at home and no other household member able to render care; M19.011 Primary osteoarthritis, right shoulder; R53.81 Other malaise; Z66 Do not resuscitate; Z96.642 Presence of left artificial hip joint; R39.89 Other symptoms and signs involving the genitourinary system
CPT/HCPCS: 36415; 70450; 73030; 80048; 81001; 82803; 82962; 83036; 83605; 83735; 84100; 84443; 84484; 85018; 85025; 86140; 87631; 93005; 96360; 96372; 97110; 97116; 97162; 97165; 97530; 97535; 99284; 99285; A9270; G0378; J1650; J7120

== ENCOUNTER 2023-04-29 09:30 | Outpatient (CLI) | payer OTHER, SELFPAY | END 2023-04-29 09:31 | disposition home or self-care (01) | LOC: WOUND 09:35 | PROVIDERS: PCP Family Medicine; Visit Provider Nurse Practitioner Family | DX: L89.323 Pressure ulcer of left buttock, stage 3 (principal); E11.9 Type 2 diabetes mellitus without complications; Z79.4 Long term (current) use of insulin | CPT/HCPCS: 11042; 99213 ==

== ENCOUNTER 2023-05-13 13:01 | Outpatient (CLI) | payer OTHER, SELFPAY | END 2023-05-13 13:02 | disposition home or self-care (01) | LOC: WOUND 13:01 | PROVIDERS: PCP Family Medicine; Visit Provider Nurse Practitioner Family | DX: L89.313 Pressure ulcer of right buttock, stage 3 (principal); E11.9 Type 2 diabetes mellitus without complications; Z79.84 Long term (current) use of oral hypoglycemic drugs | CPT/HCPCS: 99212 ==

== ENCOUNTER 2023-08-09 11:30 | Outpatient (RCR) | payer OTHER, SELFPAY ==
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
== END 2023-08-25 12:12 | disposition home or self-care (01) ==
PROVIDERS: PCP Family Medicine; Visit Provider Family Medicine
DX: R26.89 Other abnormalities of gait and mobility (principal); M25.552 Pain in left hip; R26.2 Difficulty in walking, not elsewhere classified; Z51.89 Encounter for other specified aftercare
CPT/HCPCS: 97110; 97116; 97163

== ENCOUNTER 2024-04-12 11:15 | Outpatient (RCR) | payer OTHER, SELFPAY ==
--- NOTE | 2024-01-25 17:15 | PT.OPEX ---
PT [place] Outpatient Eval PT [facility] Outpatient Eval Start: 01/25/24 09:06 Freq: Status: Active Protocol: Document 01/25/24 09:06 JALEESA (Rec: 01/25/24 15:36 JALEESA [id number]) E-signed By Marquita Mitchell PT Physical Therapy Outpatient Evaluation Insurance Information Recert Due Date 01/25/24 Insurance Name [employer],Medicare B Medical Diagnosis UNSTEADINESS ON FEET Treating Diagnosis WEAKNESS Referring MD KALA KRUEGER Subjective Subjective PATIENT STATES,I'M GETTING AROUND OKAY. BUT MY DOCTORS THINK I NEED TO BE STRONGER. I AM SLOWED DOWN BY . SHE NEEDS A NEW KNEE. Pain Comments Date of Last Physician Visit 01/04/24 Date of Surgery (If applicable) 01/09/23 Current Work Status Retired Occupation [employer]IRED [employer] Preferred Name PETER Precautions Treatment Precautions/Contraindications MILD COG IMPAIRMENT Therapy Limitations/Systems Review Cognition Objective Functional Test Performed & Score TU SEC TINETTI: 03/16 Assessment Assessment/Impression PATIENT IS AN 83 YO MALE REFERRED BY DR. KRUEGER TO EVAL AND TREAT S/P LEFT PÉREZ () WITH RESIDUAL WEAKNESS , GT ABNORMALITY, AND DECREASED BALANCE. PMHX INCLUDES BUT NOT LIMITED TO H/ O FALLS, CKD3, H/O STAGE 3 PRESSURE ULCER ON BUTTOCK, HLD , HTN, IDDM, COGNITIVE DEFICIT . PATIENT LIVES WITH HIS WHO ALSO HAS PHYSICAL CHALLENGES IN A RAMBLER HOME WITH 3 STEPS TO ENTER REPORTING RAILINGS ON BOTH SIDE. ALL IS NEEDS ARE MET ON THE FIRST FLOOR REPORTING A WALK IN SHOWER WITH GRAB BARS. HE DENIES NEEDING ANY ASSISTANCE BUT HIS BALANCE SCORES INDICATE HIGH FALL RISK (SEE ABOVE) REQUIRING, IN AT LEAST, SBA. HE DOES NOT CLEANSE OFTEN AND, TODAY, HAS A NOTICEABLY FULL DEPENDS AND SPOTTING ON THE CHAIR FROM URINE. WE DISCUSSED AT LENGTH THE NEED TO ADDRESS HIS HYGIENE MORE FREQUENTLY D/T HIS H/O PRESSURE ULCERS. WE DISCUSSED CHANGING HIS DEPENDS THEY FILL AND NOT TO SIT IN HIS SOILED GARMENT. PATIENT VERBALIZED UNDERSTANDING AND REITERATED THIS TO HIS WELL. HE DEMONSTRATES FAIR STRENGTH MEASURING A 4-/5 ON BOTH HIS HIP ABD (SIDELYING) AND HIP FLEX (SEATED). HIS PATIENT CENTERED GOAL IS TO WALK WITH HIS SPC NOT HIS FWW AND TO WALK BETTER. THEY DENY ANY RECENT FALLS AND ARE DILIGENT WITH A DAILY EXERCISE PROGRAM PREVIOUSLY PROVIDED PER . HE IS APPROPRIATE FOR SKILLED PHYSICAL THERAPY TO ADDRESS HIS BLE STRENGTH, GT, FUNCTIONAL BALANCE TRAINING AND FALL PREVENTION TRAINING. Primary Functional Limitations STAIRS, AMB ON A VARIETY OF SURFACES, TRANSFERS, BALANCE Plan of Care Rehabilitation Potential Fair Physical Therapy Goals 1. IMPROVE CORE/HIP/GLUT STRENGTH AND TRUNK STABILITY OVER THE NEXT 6-8 WEEKS FOR IMPROVED FUNCTIONAL MOBILITY, BALANCE, AND GAIT TO DECREASE RISK FOR FALLS. 2. IMPROVE TINETTI SCORE FROM 03/16 TO AND IMPROVE TUG <18SEC OVER THE NEXT 6-8 WEEKS FOR IMPROVED SAFETY WITH DAILY ACTIVITIES AND DECREASED RISK OF FALLS. 3. IMPROVE BALANCE, COORDINATION OVER THE NEXT 6-8 WEEKS FOR IMPROVED GAIT AND SAFETY FOR COMMUNITY NAVIGATION WELL PEER CENTERED ACTIVITIES. 4. PATIENT WILL BE INDEPENDENT WITH HER HEP WITH IN 8-12 WEEKS FOR PROGRESSION TOWARD THE ABOVEMENTIONED GOALS, CONTINUED SELF IMPROVEMENT WITH STRENGTH, COORDINATION, GAIT, AND SAFETY AWARENESS. Coordination/Communication With Referral Source Treatment Plan/Direct Interventions Gait Training,Neuromuscular Re -ed,Self-Care/Home Management, Therapeutic Activities, Therapeutic Exercises Frequency/Duration 2G79-89 Patient Will Be Discharged From Therapy Completion of LTG(s) Discharge Plan Comments DISCHARGE TO SELF AND ASSISTANCE OF WHEN GOALS MET AND CONSISTENT WITH HIS HEP. Evaluation Billing Untimed Code Treatment Minutes 20 PT Eval No Charge No Complexity Moderate Certification Information Initial Certification Date 01/25/24 Ending Certification Date 04/23/24 Provider Signature Shows Agreement With POC & Medical Necessity Physician Signature & Date Requested Please Sign/Date Here Physician Comment/Change : Physician NPI Number #
== END 2024-05-01 16:30 | disposition home or self-care (01) ==
PROVIDERS: PCP Family Medicine; Visit Provider Family Medicine
DX: R26.81 Unsteadiness on feet (principal); Z51.89 Encounter for other specified aftercare
CPT/HCPCS: 97110; 97116; 97162

== ENCOUNTER 2024-06-05 10:20 | Emergency (ER) | payer OTHER, SELFPAY ==
--- OUTSIDE RECORDS SUMMARY | 2024-06-05 10:22 | XMS_ITS | Clinical Summary ---
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 Allergy to the coating on tablets Medications Medication Sig Dispensed Refills Start Date End Date Status medication order composerIndications:Type 2 diabetes mellitus without complication, with long-term current use of insulin (HC) Please dispense 1 pair diabetic footwear 1 Package 0 Active latanoprost (XALATAN) 0.005 % ophthalmic solution 1 Active blood-glucose meterIndications:Type 2 diabetes mellitus without complication, with long-term current use of insulin (HC) Dispense meter, test strips, lancets covered by pt ins. E11.9 NIDDM type II - Test 1 time/day 1 Each 2 Active Blood Glucose Control High&Low (Accu-Chek Guide L1-L2 Ctrl Ruby) solnIndications:Type 2 diabetes mellitus without complication, with long-term current use of insulin (HC) As directed. Dispense control solution covered by insurance 1 Each 1 2 Active aspirin chewable 81 mg chewable tabletIndications:S/P TURP (status post transurethral resection of prostate) Chew 1 Tablet (81 mg) by mouth once daily with a meal. ok to resume in 1 week 0 3 Active Additional Information Patient taking differently:81 mg Oral DAILY WITH MEAL,(No instructions reported), Reported on 04/24/2024 sennosides-docusate (SENOKOT S) (8.6-50 mg) tabletIndications:S/P TURP (status post transurethral resection of prostate) Take 1 Tablet by mouth 2 times daily if needed for Constipation. 20 Tablet 3 Active insulin glargine, U-100, (Lantus Solostar U-100 Insulin) 100 unit/mL (3 mL) penIndications:Type 2 diabetes mellitus without complication, with long-term current use of insulin (HC) Inject 22 units subcutaneous before bedtime. 60 mL 1 4 Active pen needle (Droplet Pen Needle) 31 gauge x 5/16 (disposable insulin pen needle)Indications:Diabe michael mellitus without complication (HC) For administering insulin at home. Twice daily 200 Each 3 4 Active tamsulosin (FLOMAX) 0.4 mg capsuleIndications:BPH with urinary obstruction Take 1 Capsule (0.4 mg) by mouth once daily after a meal. 90 Capsule 3 4 Active empagliflozin (JARDIANCE) 25 mg tabletIndications:Type 2 diabetes mellitus without complication, with long-term current use of insulin (HC) Take 1 Tablet (25 mg) by mouth once daily. 90 Tablet 3 4 Active simvastatin (ZOCOR) 40 mg tabletIndications:Pure hypercholesterolemia Take 1 Tablet (40 mg) by mouth at bedtime. 90 Tablet 3 4 Active metFORMIN (GLUCOPHAGE) 500 mg tabletIndications:Type 2 diabetes mellitus without complication, with long-term current use of insulin (HC) Take 1 Tablet (500 mg) by mouth once daily with a meal. 90 Tablet 3 4 Active blood sugar diagnostic (Accu-Chek Guide test strips) stripIndications:Type 2 diabetes mellitus without complication, with long-term current use of insulin (HC) TEST BLOOD SUGAR ONE TIME DAILY 100 Each 4 Active lancets (Accu-Chek Softclix Lancets)Indications:Type 2 diabetes mellitus without complication, with long-term current use of insulin (HC) TEST BLOOD SUGAR ONE TIME DAILY 100 Each 3 4 Active Active Problems Problem Noted Date Diagnosed Date Type 2 diabetes mellitus wit h diabetic chronic kidney disease, unspecified CKD stage, unspecified whether alf insulin use 01/04/2024 Stage 3 chronic kidney disea se, unspecified whether stage 3a or 3b CKD 01/04/2024 Urinary retention 06/27/2023 S/P TURP (status post transurethral resection of prostate) 06/27/2023 Type 2 diabetes mellitus wit hout complication, with long-term current use of insulin 07/06/2016 DISH (diffuse idiopathic skeletal hyperostosis) 03/31/2015 Overview (03/31/2015): Completed physical therapy [facility] March 2015. If ever has increased pain, needs to go to ER immediately, due to DISH, fracture and bleeding in spine more likely. Sensorineural hearing loss, bilateral 08/25/2010 Personal history of colonic polyps 02/20/2010 Overview (08/17/2016): Colonoscopy 02/2010 normal repeat in 5 years Colonoscopy 07/2016 polyp repeat in 5 years Special screening for malignant neoplasm of pros win 07/10/2008 Pure hypercholesterolemia 06/05/2007 Obesity, unspecified 06/05/2007 Other malignant neoplasm of skin, site unspecifi ed 06/05/2007 Encounters Date Type Department Care Team Description 06/05/2024 Nurse Triage [address] [address] Genaro Freedman MD Blood In Urine 04/24/2024 1:55 PM CDT Office Visit [address] [address] Genaro Freedman MD Medicare ANNUAL (subsequent) Visit (83 years) 04/24/2024 Travel 04/09/[address] [address] Genaro Freedman MD Refill Request (Metformin) 04/07/[address] [address] Genaro Freedman MD Refill Request (Tamsulosin, Simvastatin, Metformin) 04/04/2024 11:00 AM CDT Orders Only [address] [address] [facility] [place] [facility] 04/04/2024 Travel from Last 3 Months Immunizations Name Administration Dates Next Due COVID-19 VACCINE COMIRNATY ( PFIZER-BIONTECH 30MCG/0.3ML) 12YO+ PFS 06/24/2023 COVID-19 vaccine (Pfizer-Bio NTech 30mcg/0.3mL) 12YO+ BIVALENT PF, MDV 06/25/2022 COVID-19 vaccine (Pfizer-Bio NTech 30mcg/0.3mL) 12YO+ NICOLE-SUCROSE PF, MDV 12/30/2021 COVID-19 vaccine (Pfizer-Bio NTech 30mcg/0.3mL) PF, MDV 06/17/2021,12/16/2020,11/25/2020 Influenza, IIV3 (Age >=3 years) 07/23/1999 Influenza, Inactivated AIIV4 (Age 65+ Years) Preserv Free 07/01/2023,06/25/2022,06/17/2021 Pneumococcal Poly,23-Valent (Pneumovax) 04/09/20 20 Pneumococcal conj 13-Valent (Prevnar 13) 018 RSV, Bivalent Vaccine Recons tituted (Abrysvo 120MCG/0.5mL) 07/14/2023 Td (Age >=7 Years) 11/12/2004 Tdap 10/14/2023 Zoster (Shingrix-RZV, recombinant) 10/14/2023, Family History Medical History Relation Name Comments Heart Disease Brother [place] at 59 Other Father Ulcers Other Mother at 79 of o ld age Cancer Sister of Bone Ca ncer at 61 Relation Name Status Comments Brother Father Mother Sister Social History Tobacco Use Types Packs/Day Years Used Date Smoking Tobacco: Never Smokeless Tobacco: Never Tobacco Cessation:Counseling Given: Yes Alcohol Use Standard Drinks/Week Comments No 0 (1 standard drink = 0.6 oz pure alcohol) Rare beer up to one drink per month PHQ-2 Answer Date Recorded PHQ-2 TOTAL SCORE 0 04/24/2024 Social Connections Answer Date Recorded Frequency of Communication with Friends and Fami ly 0 01/04/2024 Financial Resource Strain Answer Date R ecorded Difficulty of Paying Living Expenses 3 01/04/2024 Difficulty of Paying Living Expenses Not on file 01/04/2024 Food Insecurity Answer Date Recorded Worried About Running Out of Food in the Last Ye ar 1 01/04/2024 Transportation Needs Answer Date Record ed Lack of Transportation (Medical) 1 01/04/2024 Housing Stability Answer Date Recorded Unable to Pay for Housing in the Last Year 1 01/04/2024 Sex and Gender Information Value Date Recorded Sex Assigned at Not on file Gender Identity Not on file Sexual Orientation Not on file Obstetrics History Last Filed Vital Signs Vital Sign Reading Time Taken Comments Blood Pressure 105/65 04/24/2024 2:11 PM CDT Pulse 77 04/24/2024 2:11 PM CDT Temperature 36.2 ??C (97.2 ??F) 04/24/2024 2:11 PM CD T Respiratory Rate 18 06/29/2023 2:11 PM CDT Oxygen Saturation 95% 04/24/2024 2:11 PM CDT Inhaled Oxygen Concentration - - Weight 106.1 kg (233 lb 12.8 oz) 04/24/2024 2:11 PM CDT Height 180.2 cm (5' 10.95) 04/24/2024 2:11 PM C DT Body Mass Index 32.66 04/24/2024 2:11 PM CDT Plan of Treatment Upcoming Encounters Date Type Department Care Team (Late st Contact Info) Description 07/20/2024 11:45 AM CDT Orders Only [facility] [address] [place] [address] Griffin Farrell 07/25/2024 1:35 PM [employer] Office Visit [facility] [address] [place] [address] Genaro Freedman MD [address] [place] [address] Health Maintenance Due Date Last Done Comments COVID-19 vaccine series ( season) 2024 06/24/2023, 06/25/2022, 12/30/2021, Additional history exists Influenza for age 65+ 05/20/2024 07/01/2023 , 06/25/2022, 06/17/2021, Additional history exists BMI (ht and wt on same day) for age 18+ 04/24/2025 04/24/2024, 12/29/2022, 06/25/2022, Additional history exists Depression screening for age 12+ 04/24/2025 04/24/2024, 07/01/2023, 06/25/2022, Additional history exists Medicare Wellness for age 65+ 04/25/2025, 06/25/2022, 07/15/2017, Additional history exists Tetanus booster 10/14/2033 10/14/2023, 11/12/2004 Pneumococcal series for age 65+ Completed , 05/05/2018 RSV vaccine for adults or Completed 07/14/2023 Tdap Completed 10/14/2023 Zoster (shingles) series for age 50+ Completed 10/14/2023, 07/14/2023 Procedures Procedure Name Priority Date/Time Associated Diagnosis Comments URINE ALBUMIN TO CREATININE RATIO, RANDOM Routine 04/04/2024 10:51 AM CDT Type 2 diabetes mellitus without complication, with long-term current use of insulin (HC) HEMOGLOBIN A1C Routine 04/04/2024 10:48 AM CDT Type 2 diabetes mellitus without complication, with long-term current use of insulin (HC) LIPID PANEL W REFLEX MEASURED LDL Routine 04/04/2024 10:48 AM CDT Type 2 diabetes mellitus without complication, with long-term current use of insulin (HC) BASIC METABOLIC PANEL Routine 04/04/2024 10:48 AM CDT Type 2 diabetes mellitus without complication, with long-term current use of insulin (HC) from Last 3 Months Results * MICROALBUMIN RANDOM URINE [76395.2] (04/04/2024 10:51 AM CDT) ALB RAND URINE <12.0 mg/L 04/04/2024 7:29 PM CDT [facility] CREATININE,URINE 0.55 g/L 04/04/20 7:29 PM CDT [facility] ALBUMIN TO CREATININE RATIO,RAND UR 04/04/2024 7:29 PM CDT [facility] Comment:Urine Albumin below measurement range, unable to calculate. Urine URINE SPECIMEN / Unknown Non-Blood / Unknown 04/04/2024 10:51 AM CDT 04/04/2024 10:51 AM CDT Narrative [facility] - 04/04/2024 7:29 PM CDT If Albumin to Creatinine Ratio is elevated, consider the following: ? Elevations seen with incipient nephropathy associated ?? with diabetes mellitus or hypertension. Stress, exercise,hematuria, ?? and urinary tract infection may also produce elevated results. If clinically indicated, confirm with ?24 Hour Albumin to Creatinine Ratio. ?? Genaro Freedman MD URINE [facility] [address] [place] [address], * LIPID PANEL W REFLEX MEASURED LDL (04/04/2024 10:48 AM CDT) CHOLESTEROL,TOTAL 129 100 - 199 mg/dL 04/04/2024 7:21 PM T [facility] Comment: Cholesterol, Total Reference Ranges Desirable <200 mg/dL Borderline 200-239 mg/dL High >=240 mg/dL TRIGLYCERIDES 54 <150 mg/dL 04/04/2024 7:21 PM CDT [facility] HDL CHOLESTEROL 56 >40 mg/dL 7:21 PM CDT [facility] NON-HDL CHOLESTEROL 73 <145 mg/dl 04/04/2024 7:21 PM T [facility] CHOL/HDL RATIO 2.30 <4.50 04/04/2024 7:21 PM CDT [facility] LDL CHOLESTEROL 62 <=130 mg/dL 04/04/2024 7:21 PM T [facility] VLDL CHOLESTEROL 11 <=30 mg/dL 04/04/2024 7:21 PM T [facility] PROVIDER ORDERED STATUS FASTING 04/04/2024 7:21 PM CDT [facility] Blood BLOOD SPECIMEN / Unknown Venipuncture / Unknown 04/04/2024 10:48 AM CDT 04/04/2024 10:48 AM CDT Genaro Freedman MD CHEMISTRY Performing Organization Address [facility] de Phone Number [facility] [address] [place] [id number], * (ABNORMAL) HEMOGLOBIN A1C MONITORING (POCT) (04/04/2024 10:48 AM CDT) HEMOGLOBIN A1C MONITORING (POCT) 8.4(H) <=6.4 % 04/04/2024 10:58 AM CDT [facility] Blood BLOOD SPECIMEN / Unknown Venipuncture / Unknown 04/04/2024 10:48 AM CDT 04/04/2024 10:48 AM CDT Narrative [facility] - 04/04/2024 10:58 AM CDT ? (<=6.9%) ? Indicates good control ? (7.0% to 7.9%) ? Indicates fair control ? (>=8.0%) ? Indicates poor control ?? NOTE: ??These thresholds are guidelines and ?individual targets may vary. Falsely low levels may be seen with: Recent Transfusion, Recent Significant Blood Loss, Hemolytic Diseases, or Falsely elevated levels may be seen with: Untreated Anemias, Splenectomy ? Genaro Freedman MD CHEMISTRY Performing Organization Address [facility] Co de Phone Number [facility] [address] [place] [address], [place] [phone] * (ABNORMAL) BASIC METABOLIC PANEL (04/04/2024 10:48 AM CDT) SODIUM 139 136 - 145 mmol/L 04/04/2024 7:21 PM T [facility] POTASSIUM 5.2(H) 3.5 - 5.1 mmol/L 04/04/2024 7:21 PM T [facility] CHLORIDE 102 98 - 107 mmol/L 04/04/2024 7:21 PM T [facility] CO2,TOTAL 28 22 - 29 mmol/L 04/04/2024 7:21 PM T [facility] ANION GAP 9 5 - 18 04/04/2024 7:21 PM T [facility] GLUCOSE 123(H) 70 - 99 mg/dL 04/04/2024 7:21 PM T [facility] CALCIUM 9.5 8.8 - 10.2 mg/dL 04/04/2024 7:21 PM [facility] BUN 26(H) 8 - 23 mg/dL 04/04/2024 7:21 PM [facility] CREATININE 1.22(H) 0.70 - 1.20 mg/dL 04/04/2024 7:21 PM [facility] BUN/CREAT RATIO 21(H) 10 - 20 7:21 PM [facility] eGFR 59(L) >90 mL/min/1.7 3m2 04/04/2024 7:21 PM [facility] Comment:As of 2021, eG FR is calculated by the CKD-EPI creatinine equation without race adjustment. ??eGFR can be influenced by muscle mass, exercise, and diet. ??The reported eGFR is an estimation only and is only applicable if the renal function is stable. Blood BLOOD SPECIMEN / Unknown Venipuncture / Unknown 04/04/2024 10:48 AM CDT 04/04/2024 10:48 AM CDT Genaro Freedman MD CHEMISTRY [facility] 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
[2024-06-05 10:24] VITALS: BP 148/71; PULSE 83; RESP 18; TEMP 36.3; O2SAT 93; BMI 28.2
--- NOTE | 2024-06-05 10:45 | CRLHL7_ITS ---
For Patients: As a result of the Century Cures Act, medical imaging exams and procedure reports are released immediately into your electronic medical record. You may view this report before your referring provider. If you have questions, please contact your health care provider. INDICATION: Hematuria TECHNIQUE: CT abdomen and pelvis with 100 mL Isovue 370 COMPARISON: None. FINDINGS: Significant motion limits evaluation Lower chest: Small pericardial effusion Liver: Too small to characterize low-attenuation lesion in the liver Gallbladder and bile ducts: Cholelithiasis. Pancreas: Unremarkable. No mass or inflammation. Spleen: Normal in size. No masses. Adrenal glands: Normal in size. No nodules. Kidneys: Normal in size. No suspicious masses, stones, or hydronephrosis. No suspicious filling defects in the opacified collecting systems, ureters or urinary bladder GI tract: Unremarkable. Normal in caliber. No sign of mass or inflammation. Abundant stool in the colon. Vasculature: Abdominal aorta is normal in caliber. Lymph nodes: No lymphadenopathy. Peritoneum/Abdominal Wall: Fat containing small inguinal hernias Pelvis: Enlarged prostate gland.. Bones: Left hip arthroplasty causing streak artifact limiting visualization of the pelvis. IMPRESSION: 1. Urinary tract appears unremarkable. No renal calculi or hydronephrosis. Urinary bladder appears unremarkable. Please note that all CT scans at this facility use dose modulation, iterative reconstruction, and/or weight-based dosing when appropriate to reduce radiation dose to as low as reasonably achievable. Dictated by Cherelle Robins MD @ 06/05/2024 1:03:02 PM (Electronically Signed)
[2024-06-05 11:01] LABS: Appearance Urine Cloudy (Clear); Bilirubin Urine Negative (Negative); Blood Urine 3+ (Negative); Color Urine Brown (Yellow); Glucose Urine 2+ (Negative); Ketones Urine Negative (Negative); Leukocyte Esterase Urine Negative (Negative); Nitrite Urine Negative (Negative); Protein Urine 1+ (Negative); Urobilinogen Urine 0.2 (0.2-1.0); pH Urine 5.5 (5.0-8.5)
[2024-06-05 11:10] LABS: RBC Urine >100 (0-2); WBC Urine 0-2 (0-5)
[2024-06-05 11:12] LABS: Basophils Absolute Auto 0.02 K/uL (0.00-0.30); Basophils Percent Auto 0.3 % (0.0-3.0); Eosinophils Percent Auto 2.6 % (0.0-7.0); Hematocrit 49.2 % (37.0-53.0); Hemoglobin* 16.4 gm/dL (13.5-17.5); Immature Granulocytes Abs Auto 0.01 K/uL (0.00-0.30); Immature Granulocytes Pct Auto 0.1 %; Lymphocytes Absolute Auto 1.84 K/uL (0.90-2.90); Lymphocytes Percent Auto 23.6 % (20-44); Mean Corpuscular HGB Conc 33 gm/dL (32-36); Mean Corpuscular Hemoglobin 30 pg (26-34); Mean Corpuscular Volume 90 fL (80-100); Monocytes Percent Auto 9.2 % (0.0-11.0); Neutrophils Absolute Auto 5.02 K/uL (1.7-7.0); Neutrophils Percent Auto 64.2 % (42.0-72.0); Platelet Count* 204 K/uL (140-440); RDW Coefficient of Variation % 12.6 % (11.5-15.5); Red Blood Count 5.48 m/uL (4.30-5.90); White Blood Count* 7.81 K/uL (4.50-11.00)
[2024-06-05 11:20] LABS: Slide Review Reflex No
[2024-06-05 11:23] LABS: Chloride* 98 mmol/L (96-114); Potassium* 4.7 mmol/L (3.6-5.1); Sodium* 136 mmol/L (135-149)
[2024-06-05 11:25] LABS: Est. Creatinine Clearance* 65.08; Estimated Glomerular Filt Rate 75 ml/min
[2024-06-05 11:26] LABS: Anion Gap 10 mEq/L (7-15); Blood Urea Nitrogen* 27 mg/dL (7-30); Calcium* 9.6 mg/dL (8.4-10.6); Carbon Dioxide* 28 mmol/L (20-32); Glucose* 334 mg/dL (60-115)
--- OUTSIDE RECORDS SUMMARY | 2024-06-05 11:35 | XMS_ITS | Continuity of Care Document ---
Author Organization [place] [facility], [facility] Address [address] [place] [address] Care Team Providers Care Non Licensed Operator Name Role Phone KALA KRUEGER Primary Care Provider Assessment No assessment recorded. Plan of Treatment Reminders Order Date Submit Date Provider Last Modified By Organization Details Last Modified Time Details Appointments ESTABLISH ED 10 2023 01:30P M Not available Not available Not available Lab None recorded. Referral None recorded. Procedures bladder scan (PROC) 2023 024 [email or web address] [facility], [address], [address], [place], [address], 05/01/2024 14:07:39 Surgeries None recorded. Imaging None recorded. Medication Orders oxybutyni n chloride ER 5 mg tablet,ex tended release 24 hr 2023 024 [id number], [address] [place], [place], [id number], 05/01/2024 14:25:08 Patient TargetsNo targets recorded. Patient Instructions Encounter Date Encounter Id Patient Instructions Last Modified By Organization Details Last Modified Time 05/01/2024 [id number] will continue tamsulosin and try going to lower dose of oxybutynin ER 5mg daily rtc 6 weeks for PVR recheck [email or web address] Not available 05/01/2024 14:25:32 Reason for Referral None Reported. Results Created Date Observation Date Name Description Value Unit Range Abnormal Flag Note LastModifiedBy Organization Detail LastModifiedTime 05/01/2005/01/2024 bladd er scan (PROC ) Volume (in mL) 205 Not Available [facility] [address], [place], [address], 04/30/2024 11:01:04 Result Notes None recorded. Problems Name Problem SNOMED Code Status Onset Date Resolution Date Notes Provider Name and Address Organization Details Recorded Time Urgent desire to urinate 15205483 Active 024 Christophe Diane MD [address] [place] [address],[address], [place], [address], [facility] 4 14:24:02 Retention of urine 462081399 Active 024 Christophe Diane MD [address] [place] [address],[address], [place], [address], [facility] 4 14:24:03 Problem Notes None recorded. Procedures Surgical History Date Name Laterality Status Provider Name and Address Organization Details Recorded Time 05/01/20 24 Bladder Scan completed Christophe Diane MD [address] [place] [address],[address], [place], [address], [facility] 05/01/2024 14:07:14 01/23/20 24 COMPLEX VISIT completed Mohit Fernandez MD [address] [place] [address],[address], [place], [address], [facility] 01/23/2024 18:03:07 01/23/20 24 Bladder Scan completed [facility]jelica [facility] 01/23/2024 14:05:09 07/25/20 23 Bladder Scan completed Rosalie Bryson [facility] 07/25/2023 14:04:12 06/27/20 23 TRANSURETHRAL RESECTION OF PROSTATE (SURG) completed Mohit Fernandez MD [address] [place] [address],[address], [place], [address], [facility] 07/25/2023 14:34:10 04/14/20 23 Urodynamic Studies completed Patricia [facility] 04/15/2023 10:20:17 03/18/20 23 Worrell Catheter Insertion completed Anjelica [facility] 03/18/2023 15:22:44 03/18/20 23 Fill and Pull/Voiding Trial/TOV completed Anjelica Arthur [facility] 03/18/2023 12:29:21 total replacement of hip completed Anjelica Arthur [facility] 03/18/2023 11:43:01 Appendectomy completed Anjelica Arthur [facility] 03/18/2023 11:43:06 Imaging Results None recorded. Procedure Notes None recorded. Medical Equipment None Reported. Allergies No known drug allergies Medications Name Sig Start Date Stop Date Status Note LastModified by Organization Details LastModified Time latanoprost 0.005 % eye drops INSTILL 1 DROP INTO AFFECTED EYE(S) BY OPHTHALMI C ROUTE ONCE DAILY INTHE EVENING active Not Available Not Available No t Available metformin 500 mg tablet active Not Available Not Available Not Available oxybutynin chloride ER 10 mg tablet,exte nded release 24 hr Take 1 tablet every day by oral route. active Not Available Not Available No t Available lisinopril 20 mg tablet active Not Available Not Available Not Available Accu-Chek Softclix Lancets active Not Available Not Available Not Available aspirin 81 mg tablet,maryam yed release Take 1 tablet every day by oral route. active Not Available Not Available No t Available simvastatin 40 mg tablet active Not Available Not Available Not Available tamsulosin 0.4 mg capsule active Not Available Not Available Not Available oxybutynin chloride ER 5 mg tablet,exte nded release 24 hr TAKE 1 TABLET BY MOUTH EVERY DAY active Not Available Not Available No t Available finasteride 5 mg tablet Take 1 tablet every day by oral route. 01/22 completed Not Available Not Available Not Available glipizide 5 mg tablet 01/22 completed Not Available Not Available Not Available BD Ultra-Fine Short Pen Needle 31 gauge x 5/16 active Not Available Not Available Not Available Lantus Solostar U-100 Insulin 100 unit/mL (3 mL) subcutaneou s pen active Not Available Not Available Not Available Jardiance 10 mg tablet 01/22 completed Not Available Not Available Not Available Jardiance 25 mg tablet active Not Available Not Available Not Available Accu-Chek Guide test strips active Not Available Not Available Not Available Vitals Date Recorded Body height Body mass index (BMI) Body weight Provider Name and Address Organization Details Last Updated DateTime 05/01/2024 187.96 cm 29.5 kg/m2 544381.25 g Christophe Diane MD [address], [place], [address], [facility] 05/01/2024 14:05:57 Social History Question Answer Notes LastModified by Organizat ion Details LastModified Time Tobacco Smoking Status Never Smoker Anjelica howe, [facility] 03/18/2023 11:42:44 What Is Your Level Of Alcohol Consumption? None Information not available 03/18/2023 What Was The Date Of Your Most Recent Tobacco Screening? 05/01/2024 [email or web address] Information not available 05/01/2024 Has Tobacco Cessation Counseling Been Provided? No Information not available 03/18/2023 Do You Or Have You Ever Used Any Other Forms Of Tobacco Or Nicotine? No Information not available 03/18/2023 Sex: Unknown Functional Status None recorded. Mental Status None recorded. Family History Nothing Reported Notes:diabetes on mother's s alex of family Medical History Condition Response Diabetes Y High Blood Pressure Y High Cholesterol Y Immunizations Vaccine Type Date Status Provider Name and Address Organization Details Recorded Time Influenza, adjuvanted, quadrivalent, PF 06/17/2021 completed Anjelica howe, [facility] 04/25/2023 15:13:38 Influenza, adjuvanted, quadrivalent, PF 06/25/2022 [facility] 15:13:38 COVID-19, mRNA, LNP-S, PF, 30 mcg/0.3 mL dose 11/25/2020 completed Anjelica Stromquist null, [facility] 04/25/2023 15:13:38 COVID-19, mRNA, LNP-S, PF, 30 mcg/0.3 mL dose 12/16/2020 [facility] 15:13:38 COVID-19, mRNA, LNP-S, PF, 30 mcg/0.3 mL dose 06/17/2021 [facility]23 15:13:39 COVID-19, mRNA, LNP-S, PF, 30 mcg/0.3 mL dose, tamika-sucrose 12/30/2021 completed Anjelica Arthur null, [facility] 04/25/2023 15:13:39 COVID-19, mRNA, LNP-S, bivalent, PF, 30 mcg/0.3 mL dose 06/25/2022 completed Anjelica Arthur null, [facility] 04/25/2023 15:13:39 pneumococcal polysaccharide PPV23 04/09/2020 completed Anjelica Arthur null, [facility] 04/25/2023 15:13:39 Pneumococcal conjugate PCV 13 05/05/2018 completed Anjelica Arthur null, [facility] 04/25/2023 15:13:39 zoster recombinant 07/14/2023 completed Rosalie mckeon null, [facility] 07/25/2023 13:59:03 Influenza, adjuvanted, quadrivalent, PF 07/01/2023 completed Rosalie Bryson null, [facility] 07/25/2023 13:59:03 RSV, bivalent, protein subunit RSVpreF, diluent reconstituted, 0.5 mL, PF 07/14/2023 completed Rosalie Bryson null, [facility] 07/25/2023 13:59:03 COVID-19, mRNA, LNP-S, PF, tamika-sucrose, 30 mcg/0.3 mL 06/24/2023 completed Rosalie Bryson null, [facility] 07/25/2023 13:59:03 Past Encounters Encounter ID Performer Location Encounter Start Date Encounter Closed Date Diagnosis/Indication Diagnosis SNOMED-CT Code Diagnosis ICD10 Code [id number] Christophe Diane MD [facility] [address] [place] [address] 05/01/2024 13:49:53 05/03/2024 14:16:22 Retention of urine 267703141 R33.9 Urgent rodríguez rj to urinate 85971696 R39.15 Health Concerns Section Related Observation LastModified by Organization Detai ls LastModified Time None Recorded Concern Status LastModified by Organization Details LastModified Time None Recorded Payers Encounter Date Sequence Insurance Name Policy Number Policy Smith Covered Member ID Smith Member ID Guarantor Name 05/01/2024 1 [facility] Derek Hadley [id number] Derek Hadley Notes Date Note Type Note Provider Name and Address Organization Details Recorded Time 05/01/2024 text/html HPI Notes: seerosanna g for BPH follow up, has some leaking and wearing depends. PVR 205ml today. taking tamsulosin daily, and oxybutynin ER 10mg Christophe Diane MD [address], [place], [address], [facility] 05/01/2024 14:25:48
--- OUTSIDE RECORDS SUMMARY | 2024-06-05 11:35 | XMS_ITS | Data Portability ---
Author Organization [place] - [facility], [facility] Address [address] [place] [address] Care Team Providers Care Service Or Work Dispatcher Name Role Phone KALA FREEDMAN Primary Care Provider Assessment Encounter Date Assessment Date Assessment LastModified by Organization Details LastModified Time 04/25/2023 04/25/2023 82 year old male with urinary retention, BPH, IDDM, wheelchair bound [email or web address] Not available 04/21/2023 15:02:01 07/25/2023 07/25/2023 83 year old male with urinary retention, BPH, IDDM, wheelchair bound rstromquist Not available 07/22/2023 16:43:39 01/23/2024 01/23/2024 83 year old male with urinary retention, BPH, IDDM, wheelchair bound rstromquist Not available 01/20/2024 14:35:23 Plan of Treatment Reminders Order Date Submit Date Provider Last Modified By Organization Details Last Modified Time Details Appointments ESTABLISH ED 10 2023 01:30P M Not available Not available Not available Lab None recorded. Referral None recorded. Procedures bladder scan (PROC) 2023 024 [email or web address] _[facility], [address], [address], [place], [address], 05/01/2024 14:07:39 Surgeries transuret hral resection of prostate (SURG) 2022 023 Not available 06/06/2023 13:18:53 Imaging None recorded. Medication Orders oxybutyni n chloride ER 10 mg tablet,ex tended release 24 hr 2023 024 [id number], [address] [place], [place], [phone], 01/23/2024 14:17:41 oxybutyni n chloride ER 5 mg tablet,ex tended release 24 hr 2023 024 [facility] #[id number], [address] [place], [place], [phone], 05/01/2024 14:25:08 Patient TargetsNo targets recorded. Patient Instructions Encounter Date Encounter Id Patient Instructions Last Modified By Organization Details Last Modified Time 04/25/2023 [id number] Bipolar TURP Discussion We discussed prostate (TURP) surgery and detailed that it is used to relieve moderate to severe urinary symptoms caused by an enlarged prostate, a condition known as benign prostatic hyperplasia (BPH). During prostate surgery we insert a scope through the tip of the penis into the tube that carries urine from the bladder. A electrode is passed through the scope. The electrode delivers energy that is used to vaproize the excess tissue that is blocking the urethra and preventing urine flow. Improvements in urinary symptoms from TURP surgery are noticeable right away, while it can take several weeks to months to see noticeable improvement with medications.of laser surgery can include: Temporary difficulty urinating. Patients may have trouble urinating for a few days after the procedure. Until one can urinate on his own, he will need to have a catheter. Urinary tract infection. Urinary tract infections are a possible complication after any prostate procedure. An infection is increasingly likely to occur the longer one has a catheter in place, and may require antibiotics or other treatment. Narrowing (stricture) of the urethra. Just as one can form scars on the outside of your body, you can form scars on the inside after prostate surgery. These scars can block urine flow, requiring additional treatment. Dry orgasm (retrograde ejaculation). Any prostate surgery can cause retrograde ejaculation, Retrograde ejaculation isn't harmful, and generally doesn't affect sexual pleasure. But it can interfere with your ability to father a child. This is a common long-term side effect of procedures to treat an enlarged prostate. Erectile dysfunction. There is a small risk that ablative procedures could cause erectile dysfunction. This is generally less of a risk with laser surgery compared with traditional surgery. Need for pretreatment. Some men require follow-up treatment after ablative surgery because not all of the tissue is removed or it may grow back over time. [email or web address] Not available 04/25/2023 18:19:51 05/01/2024 [id number] will continue tamsulosin and try going to lower dose of oxybutynin ER 5mg daily rtc 6 weeks for PVR recheck [email or web address] Not available 05/01/2024 14:25:32 Reason for Referral None Reported. Results Created Date Observation Date Name Description Value Unit Range Abnormal Flag Note LastModifiedBy Organization Detail LastModifiedTime 05/01/20 24 05/01/2024 bladd er scan (PROC ) Volume (in mL) 205 Not Available [facility] [address], [place], [address], 04/30/2024 11:01:04 Result Notes None recorded. Problems Name Problem SNOMED Code Status Onset Date Resolution Date Notes Provider Name and Address Organization Details Recorded Time Urgent desire to urinate 01358577 Active 024 Christophe Diane MD [address] [place] [address],[address], [address], [facility] 4 14:24:02 Retention of urine 214145497 Active 024 Christophe Diane MD [address] [place] [address],[address] [place] [address], [phone], [facility] 4 14:24:03 Problem Notes None recorded. Procedures Surgical History Date Name Laterality Status Provider Name and Address Organization Details Recorded Time 05/01/20 24 Bladder Scan completed Christophe Diane MD [address] [place] [address],[address], [place], [address], [facility] 05/01/2024 14:07:14 01/23/20 24 COMPLEX VISIT completed Mohit Fernandez MD [address] [place] [address],[address], [place], [address], [facility] 01/23/2024 18:03:07 01/23/20 24 Bladder Scan completed Anjelica Arthur [facility] 01/23/2024 14:05:09 07/25/20 23 Bladder Scan completed Rosalie Bryson [facility] 07/25/2023 14:04:12 06/27/20 23 TRANSURETHRAL RESECTION OF PROSTATE (SURG) completed Mohit Fernandez MD [address], [place], [address], [facility] 07/25/2023 14:34:10 04/14/20 23 Urodynamic Studies completed Patricia Carlisle [facility] 04/15/2023 10:20:17 03/18/20 23 Worrell Catheter Insertion completed Anjelica Arthur [facility] 03/18/2023 15:22:44 03/18/20 23 Fill and Pull/Voiding Trial/TOV completed Anjelica Arthur [facility] 03/18/2023 12:29:21 total replacement of hip completed Anjelica Arthur [facility] 03/18/2023 11:43:01 [facility] 03/18/2023 11:43:06 Imaging Results None recorded. Procedure [...] and Address Organization Details Last Updated DateTime 04/14/2023 187.96 cm 27.6 kg/m2 49029.36 g Patricia Carlisle [facility] 04/14/2023 15:37:30 Date Recorded Body height Body mass index (BMI) Body weight Provider Name and Address Organization Details Last Updated DateTime 04/25/2023 187.96 cm 27.6 kg/m2 48843.36 g Anjelica Arthur [facility] 04/25/2023 15:12:46 Date Recorded Body height Body mass index (BMI) Body weight Provider Name and Address Organization Details Last Updated DateTime 07/25/2023 187.96 cm 27.6 kg/m2 17288.36 g Rosalie Bryson [facility] 07/25/2023 13:58:59 Date Recorded Body height Body mass index (BMI) Body weight Provider Name and Address Organization Details Last Updated DateTime 01/23/2024 187.96 cm 27.6 kg/m2 94419.36 g Anjelica Arthur [facility] 01/23/2024 14:05:25 Date Recorded Body height Body mass index (BMI) Body weight Provider Name and Address Organization Details Last Updated DateTime 05/01/2024 187.96 cm 29.5 kg/m2 157797.25 g Christophe Diane MD [address], [place], [address], [facility] 05/01/2024 14:05:57 Social History Question Answer Notes LastModified by Organizat ion Details LastModified Time Tobacco Smoking Status Never Smoker Anjelica Arthur shyam, [facility] 03/18/2023 11:42:44 What Is Your Level Of Alcohol Consumption? None Information not available 03/18/2023 What Was The Date Of Your Most Recent Tobacco Screening? 05/01/2024 Information not available 05/01/2024 Has Tobacco Cessation [...] Influenza, adjuvanted, quadrivalent, PF 06/17/2021 completed Anjelica Adeolaquist [facility], [facility] 04/25/2023 15:13:38 Influenza, adjuvanted, quadrivalent, PF 06/25/2022 [facility] 15:13:38 COVID-19, mRNA, LNP-S, PF, 30 mcg/0.3 mL dose 11/25/2020 [facility] 04/25/2023 15:13:38 COVID-19, mRNA, LNP-S, PF, 30 mcg/0.3 mL dose 12/16/2020 completed [facility] 04/25/2023 15:13:38 COVID-19, mRNA, LNP-S, PF, 30 mcg/0.3 mL dose 06/17/2021 completed [facility] 04/25/2023 15:13:39 COVID-19, mRNA, LNP-S, PF, 30 mcg/0.3 mL dose, tamika-sucrose 12/30/2021 completed Anjelica Stromquist null, [facility] 04/25/2023 15:13:39 COVID-19, mRNA, LNP-S, bivalent, PF, 30 mcg/0.3 mL dose 06/25/2022 completed Anjelica Arthur null, [facility] 04/25/2023 15:13:39 pneumococcal polysaccharide PPV23 04/09/2020 completed Anjelica Arthur null, [facility] 04/25/2023 15:13:39 Pneumococcal conjugate PCV 13 05/05/2018 completed Anjelica Arthur null, [facility] 04/25/2023 15:13:39 zoster recombinant 07/14/2023 completed Rosalie mckeon null, [facility] 07/25/2023 13:59:03 Influenza, adjuvanted, quadrivalent, PF 07/01/2023 completed Rosalie Bryson null, [facility] 07/25/2023 13:59:03 RSV, bivalent, protein subunit RSVpreF, diluent reconstituted, 0.5 mL, PF 07/14/2023 completed Rosalie Bryson null, [facility] 07/25/2023 13:59:03 COVID-19, mRNA, LNP-S, PF, tamika-sucrose, 30 mcg/0.3 mL 06/24/2023 completed Rosalie Bryson null, [facility] 07/25/2023 13:59:03 Past Encounters Encounter ID Performer Location Encounter Start Date Encounter Closed Date Diagnosis/Indication Diagnosis SNOMED-CT Code Diagnosis ICD10 Code [id number] MD KERRY [facility] [address] [place] [address] 03/18/2023 10:55:59 03/25/2023 13:01:18 Retention of urine 675654383 R33.9 Lower urin brian tract symptoms due to benign prostatic hypertrophy 6122772376 9101 N40.1 Insulin tr eated type 2 diabetes mellitus 405793432 Z79.4 [id number] Patricia Maylin [facility] [address] [place] [address] 04/14/2023 12:55:21 04/21/2023 12:07:22 Retention of urine 379372548 R33.9 [id number] MD KERRY [facility] [address] [place] [address] 04/25/2023 14:51:28 05/02/2023 12:04:28 Retention of urine 539207501 R33.9 Lower urin brian tract symptoms due to benign prostatic hypertrophy 7617828206 9101 N40.1 Insulin tr eated type 2 diabetes mellitus 041650000 Z79.4 [id number] Mohit Fernandez MD [address] [place] [address] 07/25/2023 13:17:16 07/28/2023 16:15:39 Retention of urine 651941142 R33.9 Lower urin brian tract symptoms due to benign prostatic hypertrophy 4638605506 9101 N40.1 Insulin tr eated type 2 diabetes mellitus 089049241 Z79.4 [id number] Mohit Fernandez MD _[place] [address] [place] [address] 01/23/2024 13:29:00 01/24/2024 08:31:49 Retention of urine 101113864 R33.9 Lower urin brian tract symptoms due to benign prostatic hypertrophy 6201474112 9101 N40.1 Insulin tr eated type 2 diabetes mellitus 210493165 Z79.4 Increased frequency of urination 017748412 R35.0 Urge incon tinence of urine 98804797 N39.41 [id number] Christophe Diane MD _[place] [address] [place] [address] 05/01/2024 13:49:53 05/03/2024 14:16:22 Retention of urine 767813409 R33.9 Urgent rodríguez rj to urinate 46035012 R39.15 Health Concerns Section Related Observation LastModified by Organization Detai ls LastModified Time None Recorded Concern Status LastModified by Organization Details LastModified Time None Recorded Advance Directives Directive None Recorded Payers Encounter Date Sequence Insurance Name Policy Number Policy Smith Covered Member ID Smith Member ID Guarantor Name 04/14/2023 1 [employer] Derek Hadley [id number] Derek Hadley 04/14/2023 2 [place] [employer] [facility] Derek Hadley [id number] Derek Hadley 04/25/2023 1 [employer] Derek Hadley [id number] Derek Hadley 04/25/2023 2 [place] [employer] [facility] Derek Hadley [id number] Derek Hadley 07/25/2023 1 [facility] Derek Hadley [id number] Derek Hadley 07/25/2023 2 [place] [employer] [facility] Derek Hadley [id number] Derek Hadley 01/23/2024 1 [facility] Derek Hadley [id number] Derek Hadley 01/23/2024 2 [place] [employer] [facility] Derek Hadley [id number] Derek Hadley 05/01/2024 1 [facility] Derek Hadley [id number] Derek Hadley Notes Date Note Type Note Provider Name and Address Organization Details Recorded Time 04/25/2023 text/html HPI Notes: Mr. Hadley is an 82 year old male referred to me by his PCP, Dr. Freedman, regarding urinary retention in the setting of long-standing IDDM and recent hip procedure. Patient was started on tamsulosin but has now failed voiding trials x3. He is therefore referred to me for evaluation and treatment. Seen today with his son who provides some of the history. 04/25/2023: Here for follow up acute urinary retention in the setting of IDDM, BPH with LUTS. 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 Seen today with his and son who provides some of the history. Mohit Fernandez MD [address] [place] [address],[address], [address], [facility] 04/25/2023 18:19:59 07/25/2023 text/html HPI Notes: Mr. Hadley is an 83 year old male referred to me by his PCP, Dr. Freedman, regarding urinary retention in the setting of long-standing IDDM and recent hip procedure. Patient was started on tamsulosin but has now failed voiding trials x3. He is therefore referred to me for evaluation and treatment. Seen today with his son who provides some of the history. 04/25/2023: Here for follow up acute urinary retention in the setting of IDDM, BPH with LUTS. 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 Seen today with his and son who provides some of the history. 07/25/2023: Here for follow up acute urinary retention in the setting of IDDM, BPH with LUTS. Now s/p TURP and doing well. Mohit Fernandez MD [address] [place] [address],[address], [place], [address], [facility] 07/25/2023 14:34:47 01/23/2024 text/html HPI Notes: Mr. Hadley is an 83 year old male referred to me by his PCP, Dr. Freedman, regarding urinary retention in the setting of long-standing IDDM and recent hip procedure. Patient was started on tamsulosin but has now failed voiding trials x3. He is therefore referred to me for evaluation and treatment. Seen today with his son who provides some of the history. 04/25/2023: Here for follow up acute urinary retention in the setting of IDDM, BPH with LUTS. 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 Seen today with his and son who provides some of the history. 07/25/2023: Here for follow up acute urinary retention in the setting of IDDM, BPH with LUTS. Now s/p TURP and doing well. 01/23/2024: Here for follow up acute urinary retention in the setting of IDDM, BPH with LUTS. S/p TURP. Flow is going well but still having a lot of issues with frequency and urge incontinence. Patient seen again today with his who provides some of the history. She believes this is mostly attributed to both his diabetes and fluid intake. Mohit Fernandez MD [address] [place] [address],[address], [place], [address], [facility] 01/23/2024 18:03:21 05/01/2024 text/html HPI Notes: seein g for BPH follow up, has some leaking and wearing depends. PVR 205ml today. taking tamsulosin daily, and oxybutynin ER 10mg Christophe Diane MD [address] [place] [address],[address], [place], [address], [facility] 05/01/2024 14:25:48
--- OUTSIDE RECORDS SUMMARY | 2024-06-05 11:35 | XMS_ITS | Clinical Summary ---
Author Organization [facility] Address [place], [place] [address] Care Team Providers Care Oil Speculator Name Role Phone Genaro Freedman MD Primary Care Provider [phone] Haris Contreras Unavailable Unavailable Allergies Active Allergy [...] kidney disease, unspecified CKD stage, unspecified whether mcfp insulin use 01/04/2024 Stage 3 chronic kidney [...] Department Care Team Description 06/05/2024 Nurse Triage [address] [address] Genaro Freedman MD Blood In Urine 04/24/2024 1:55 PM CDT Office Visit [address] [address] Genaro Freedman MD Medicare ANNUAL (subsequent) Visit (83 years) 04/24/2024 Travel 04/09/[address] [address] Genaro Freedman MD Refill Request (Metformin) 04/07/[address] [address] Genaro Freedman MD Refill Request (Tamsulosin, Simvastatin, Metformin) 04/04/2024 11:00 AM CDT Orders Only [address] [address] [place], [place] [facility] 04/04/2024 Travel from Last [...] History Relation Name Comments Heart Disease Brother [place] at 59 Other Father Ulcers Other Mother [...] Description 07/20/2024 11:45 AM CDT Orders Only [facility] [address] [place] [address] Griffin Farrell 07/25/2024 1:35 PM PLATFORM INSPECTOR Office Visit [facility] [address] [place] [address] Genaro Freedman MD [address] [place] [address] Health Maintenance Due Date Last Done Comments [...] 3 Months Results * MICROALBUMIN RANDOM URINE [08171.2] (04/04/2024 10:51 AM CDT) ALB RAND URINE <12.0 mg/L 04/04/2024 7:29 PM CDT [facility] CREATININE,URINE 0.55 g/L 04/04/20 7:29 PM CDT [facility] ALBUMIN TO CREATININE RATIO,RAND UR 04/04/2024 7:29 PM CDT [facility] Comment:Urine Albumin below measurement range, unable to calculate. Urine URINE SPECIMEN / Unknown Non-Blood / Unknown 04/04/2024 10:51 AM CDT 04/04/2024 10:51 AM CDT Narrative [facility] - 04/04/2024 7:29 PM CDT If Albumin to Creatinine Ratio is elevated, consider the following: ? Elevations seen with incipient nephropathy associated ?? with diabetes mellitus or hypertension. Stress, exercise,hematuria, ?? and urinary tract infection may also produce elevated results. If clinically indicated, confirm with ?24 Hour Albumin to Creatinine Ratio. ?? Genaro Freedman MD URINE [facility] [address] [place] [address], * LIPID PANEL W REFLEX MEASURED LDL (04/04/2024 10:48 AM CDT) CHOLESTEROL,TOTAL 129 100 - 199 mg/dL 04/04/2024 7:21 PM T [facility] Comment: Cholesterol, Total Reference Ranges Desirable <200 mg/dL Borderline 200-239 mg/dL High >=240 mg/dL TRIGLYCERIDES 54 <150 mg/dL 04/04/2024 7:21 PM CDT [facility] HDL CHOLESTEROL 56 >40 mg/dL 7:21 PM CDT [facility] NON-HDL CHOLESTEROL 73 <145 mg/dl 04/04/2024 7:21 PM T [facility] CHOL/HDL RATIO 2.30 <4.50 04/04/2024 7:21 PM CDT [facility] LDL CHOLESTEROL 62 <=130 mg/dL 04/04/2024 7:21 PM T [facility] VLDL CHOLESTEROL 11 <=30 mg/dL 04/04/2024 7:21 PM T [facility] PROVIDER ORDERED STATUS FASTING 04/04/2024 7:21 PM CDT [facility] Blood BLOOD SPECIMEN / Unknown Venipuncture / Unknown 04/04/2024 10:48 AM CDT 04/04/2024 10:48 AM CDT Genaro Freedman MD CHEMISTRY Performing Organization Address [facility] de Phone Number [facility] [address] [place] [address], * (ABNORMAL) HEMOGLOBIN A1C MONITORING (POCT) (04/04/2024 10:48 AM CDT) HEMOGLOBIN A1C MONITORING (POCT) 8.4(H) <=6.4 % 04/04/2024 10:58 AM CDT [facility] Blood BLOOD SPECIMEN / Unknown Venipuncture / Unknown 04/04/2024 10:48 AM CDT 04/04/2024 10:48 AM CDT Narrative [facility] - 04/04/2024 10:58 AM CDT ? (<=6.9%) [...] Genaro Freedman MD CHEMISTRY Performing Organization Address [facility] Co de Phone Number [facility] [address] [place] [address], [place] [phone] * (ABNORMAL) BASIC METABOLIC PANEL (04/04/2024 10:48 AM CDT) SODIUM 139 136 - 145 mmol/L 04/04/2024 7:21 PM T [facility] POTASSIUM 5.2(H) 3.5 - 5.1 mmol/L 04/04/2024 7:21 PM T [facility] CHLORIDE 102 98 - 107 mmol/L 04/04/2024 7:21 PM T [facility] CO2,TOTAL 28 22 - 29 mmol/L 04/04/2024 7:21 PM T [facility] ANION GAP 9 5 - 18 04/04/2024 7:21 PM T [facility] GLUCOSE 123(H) 70 - 99 mg/dL 04/04/2024 7:21 PM T [facility] CALCIUM 9.5 8.8 - 10.2 mg/dL 04/04/2024 7:21 PM [facility] BUN 26(H) 8 - 23 mg/dL 04/04/2024 7:21 PM [facility] CREATININE 1.22(H) 0.70 - 1.20 mg/dL 04/04/2024 7:21 PM [facility] BUN/CREAT RATIO 21(H) 10 - 20 7:21 PM [facility] eGFR 59(L) >90 mL/min/1.7 3m2 04/04/2024 7:21 PM [facility] Comment:As of 2021, eG [...] 10:48 AM CDT Genaro Freedman MD CHEMISTRY [facility] [address] [place] [address], from Last 3 Months Advance Directives * Full Code (Latest Code Status on File) Date Activated Date Inactivated Comments 06/27/2023 11:56 AM 06/29/2023 5:00 PM Question Answer Comments Code Status Discussion: Unable to Assess Preferences, Provider to review later Care Teams Oil Speculator Relationship Specialty Start Date End Date Genaro Freedman MD [address] [place] [address] PCP - General 04/12/07 Haris Contreras Core Checker 12/29/22
[2024-06-05 13:00] VITALS: BP 144/80; PULSE 88; RESP 16; O2SAT 96
--- NOTE | 2024-06-05 13:11 | ED_ITS ---
HPI - General Adult General Chief complaint: Urogenital Problems, Male Stated complaint: Blood in urine Time Seen by Provider: 06/05/24 10:28 Source: patient and family Mode of arrival: ambulatory Limitations: no limitations History of Present Illness HPI narrative: 84-year-old male presenting with hematuria started yesterday. Denies any dysuria, increased frequency or urgency. He has had this happen in the past before by really can not tell me much about it. He does follow-up with a urologist regularly for retained urine, urinary incontinence and enlarged prostate. He denies chest pain shortness of breath. He is not dizzy or lightheaded. Denies any trauma to the abdomen or flanks. He denies nausea, vomiting, fevers or chills. Patient denies taking any blood thinners. Related Data Home Medications ?Medication ?Instructions ?Recorded ?Confirmed blood sugar diagnostic (Accu-Chek 01/06/23 02/21/23 Guide test strips) empagliflozin 10 mg tablet 10 mg PO DAILY 01/06/23 01/09/24 (Jardiance) latanoprost 0.005 % eye drops 1 drp ophthalmic (eye) HS 01/06/23 01/09/24 lisinopril 20 mg tablet 20 mg PO DAILY 01/06/23 06/05/24 metformin 500 mg tablet 500 mg PO BID 01/06/23 06/05/24 simvastatin 40 mg tablet 40 mg PO HS 01/06/23 06/05/24 Previous Rx's ?Medication ?Instructions ?Recorded insulin glargine 100 unit/mL (3 20 unit (0.2 mL) subcut QPM 90 01/07/23 mL) subcutaneous pen (Lantus days #18 mL Solostar U-100 Insulin) cephalexin 500 mg capsule 500 mg PO TID 7 days #21 caps 06/05/24 Allergies Allergy/AdvReac Type Severity Reaction Status Date / Time No Known Drug Allergies Allergy Verified 01/09/24 10:04 Review of Systems Status of ROS: Reports: 10 or more systems reviewed and unremarkable except as noted in History and below [facility] Medical History Physical debility ?R53.81 - Other malaise (ICD-10) Cognitive impairment ?R41.89 - Other symptoms and signs involving cognitive functions and awareness (ICD-10) Microscopic hematuria ?R31.29 - Other microscopic hematuria (ICD-10) Postoperative anemia ?D64.9 - Anemia, unspecified (ICD-10) Chronic kidney disease, stage 3a ?N18.31 - Chronic kidney disease, stage 3a (ICD-10) Failure to thrive Fall ?W19.XXXA - Unspecified fall, initial encounter (ICD-10) Head injury ?S09.90XA - Unspecified injury of head, initial encounter (ICD-10) Hypertension ?I10 - Essential (primary) hypertension (ICD-10) Insulin dependent type 2 diabetes mellitus ?E11.9 - Type 2 diabetes mellitus without complications (ICD-10) ?Z79.4 - skilled nursing (current) use of insulin (ICD-10) Surgical History 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 He lives with his (Ada) in their own home. Smoking Status: Never smoker Do you use any of these nicotine containing products: None Second hand tobacco smoke exposure: No How often do you have a drink containing alcohol: never How often do you have six or more drinks on one occasion: Never AUDIT-C Alcohol total score: 0 Non-prescribed substance use: denies use service: Yes Exam Narrative: Exam Narrative: Well-nourished well-developed patient in no acute distress. Alert and oriented. Answers questions appropriately. Does not appear ill or toxic. 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 HEENT: Normocephalic atraumatic. Pupils are equally round reactive to light. Extraocular muscles are intact. Conjunctivae are moist without any icterus noted. Moist mucous membranes. Cardiovascular: Heart is regular rate and rhythm . Lungs: Clear to auscultation bilaterally no wheezes rhonchi or rales are appreciated. Patient takes deep breaths without any discomfort. Abdomen: Soft and nontender nondistended with normal bowel sounds. Protuberant. No flank pain. Skin is well perfused. Const: Vital Signs, click to edit/add: Vital Signs - 24 hr 06/05/24 10:24 Temperature 97.4 F L Pulse Rate [Right Pulse Oximeter] 83 Respiratory Rate 18 Blood Pressure [Ri ght Upper Arm] 148/71 H Pulse Oximetry 93 Oxygen Delivery Me thod Room Air Course Course ED Course: CBCs unremarkable. BMP is normal aside from elevated blood sugar 330. UA shows 3+ blood, greater than [address] urogram is unremarkable. Vital Signs Vital signs: Initial Vital Signs Temperature 97.4 F L 06/05/24 10:24 Temperature Source Temporal Artery Scan 06/05/24 10:24 Pulse Rate 83 06/05/24 10:24 Respiratory Rate 18 06/05/24 10:24 Blood Pressure 148/71 H 06/05/24 10:24 Blood Pressure Mean 96 06/05/24 10:24 Blood Pressure Position Sitting 06/05/24 10:24 Pulse Oximetry 93 06/05/24 10:24 Oxygen Delivery Method Room Air 06/05/24 10:24 Vital Signs Temperature 97.4 F L 06/05/24 10:24 Pulse Rate 83 06/05/24 10:24 Respiratory Rate 18 06/05/24 10:24 Blood Pressure 148/71 H 06/05/24 10:24 Pulse Oximetry 93 06/05/24 10:24 Oxygen Delivery Method Room Air 06/05/24 10:24 Temperature 97.4 F L 06/05/24 10:24 Pulse Rate 83 06/05/24 10:24 Respiratory Rate 18 06/05/24 10:24 Blood Pressure 148/71 H 06/05/24 10:24 Pulse Oximetry 93 06/05/24 10:24 Oxygen Delivery Method Room Air 06/05/24 10:24 Medical Decision Making MDM Narrative Medical decision making narrative: 84-year-old male with hematuria, unclear etiology. We will put the patient on the Keflex t.i.d. and have him follow-up with his urologist. Lab Data Lab results reviewed: Yes I reviewed the patient's lab results Labs: Lab Results 06/05/24 06/05/24 Range/Units 10:45 11:00 WBC 7.81 (4.50-11.00) K/uL RBC 5.48 (4.30-5.90) m/uL Hgb 16.4 (13.5-17.5) gm/dL Hct 49.2 (37.0-53.0) % MCV 90 (80-100) fL MCH 30 (26-34) pg MCHC 33 (32-36) gm/dL RDW Coeff of Robert 12.6 (11.5-15.5) % Plt Count 204 (140-440) K/uL Neut % (Auto) 64.2 (42.0-72.0) % Lymph % (Auto) 23.6 (20-44) % Cobb % (Auto) 9.2 (0.0-11.0) % Eos % (Auto) 2.6 (0.0-7.0) % Baso % (Auto) 0.3 (0.0-3.0) % Neut # (Auto) 5.02 (1.7-7.0) K/uL Lymph # (Auto) 1.84 (0.90-2.90) K/uL Cobb # (Auto) 0.70 (0.00-0.90) K/UL Eos # (Auto) 0.20 (0.00-0.50) K/uL Baso # (Auto) 0.02 (0.00-0.30) K/uL Abs Immat Gran (auto) 0.01 (0.00-0.30) K/uL Imm/Tot Granulo (auto) 0.1 % Sodium 136 (135-149) mmol/L Potassium 4.7 (3.6-5.1) mmol/L Chloride 98 (96-114) mmol/L Carbon Dioxide 28 (20-32) mmol/L Anion Gap 10 (7-15) mEq/L BUN 27 (7-30) mg/dL Creatinine 1.0 (0.5-1.5) mg/dL Estimated Creat Clear 65.08 Estimated GFR 75 ml/min Glucose 334 H (60-115) mg/dL Calcium 9.6 (8.4-10.6) mg/dL Urine Color Brown A (Yellow) Urine Appearance Cloudy A (Clear) Urine pH 5.5 (5.0-8.5) Ur Specific [place] 1.010 (1.000-1.030) Urine Protein 1+ A (Negative) Urine Glucose (UA) 2+ A (Negative) Urine Ketones Negative (Negative) Urine Blood 3+ A (Negative) Urine Nitrite Negative (Negative) Urine Bilirubin Negative (Negative) Urine Urobilinogen 0.2 (0.2-1.0) Ur Leukocyte Esterase Negative (Negative) Urine RBC >100 A (0-2) Urine WBC 0-2 (0-5) Ur Squamous Epith Cells None (None-Few) Urine Bacteria None (None) Imaging Data CT scan - abdomen: Attestation: I have reviewed the pertinent imaging results. Radiologist's impression: CT abdomen and pelvis with 100 mL Isovue 370 COMPARISON: None. FINDINGS: Significant motion limits evaluation Lower chest: Small pericardial effusion Liver: Too small to characterize low-attenuation lesion in the liver Gallbladder and bile ducts: Cholelithiasis. Pancreas: Unremarkable. No mass or inflammation. Spleen: Normal in size. No masses. Adrenal glands: Normal in size. No nodules. Kidneys: Normal in size. No suspicious masses, stones, or hydronephrosis. No suspicious filling defects in the opacified collecting systems, ureters or urinary bladder GI tract: Unremarkable. Normal in caliber. No sign of mass or inflammation. Abundant stool in the colon. Vasculature: Abdominal aorta is normal in caliber. Lymph nodes: No lymphadenopathy. Peritoneum/Abdominal Wall: Fat containing small inguinal hernias Pelvis: Enlarged prostate gland.. Bones: Left hip arthroplasty causing streak artifact limiting visualization of the pelvis. IMPRESSION: 1. Urinary tract appears unremarkable. No renal calculi or hydronephrosis. Urinary bladder appears unremarkable. Discharge Plan Discharge Clinical Impression: Hematuria Patient Disposition: Home, Self-Care Condition: Stable Additional Instructions: Take all antibiotics as prescribed. You will need to follow-up with your urologist who may take a camera to look inside the bladder if bleeding does not get better. If the bleeding increases, then you should return to the ER. Prescriptions: New cephalexin 500 mg capsule 500 mg PO TID 7 Days Qty: 21 0RF No Action latanoprost 0.005 % drops 1 drp ophthalmic (eye) HS metformin 500 mg tablet 500 mg PO BID lisinopril 20 mg tablet 20 mg PO DAILY (DME) Accu-Chek Guide test strips Strip MISCELLANEOUS simvastatin 40 mg tablet 40 mg PO HS Jardiance 10 mg tablet 10 mg PO DAILY insulin glargine [Lantus Solostar U-100 Insulin] 100 unit/mL (3 mL) insulin pen 20 unit subcut QPM 90 Days Qty: 18 0RF Follow Up/Referrals: Genaro Freedman MD [Primary Care Provider] - Stand Alone Forms: [employer] Info Instructions
== END 2024-06-05 14:05 | disposition home or self-care (01) ==
PROVIDERS: Emergency Provider Family Medicine; PCP Family Medicine
DX: R31.9 Hematuria, unspecified (principal)
CPT/HCPCS: 36415; 74178; 80048; 81001; 85025; 87086; 99284; Q9967

== ENCOUNTER 2024-08-24 23:06 | Emergency (ER) | payer OTHER, SELFPAY ==
[2024-08-24 23:18] VITALS: BP 191/129; PULSE 114; RESP 20; TEMP 36.8; O2SAT 94; BMI 27.6
[2024-08-24 23:52] VITALS: BP 174/108; PULSE 104; RESP 16; O2SAT 94
--- NOTE | 2024-08-25 00:34 | ED_ITS ---
HPI - General Adult General Chief complaint: Fall/Minor Trauma Stated complaint: Fell and slipped on sidewalk at 300pm Time Seen by Provider: 08/25/24 00:00 Source: patient and family Mode of arrival: ambulatory Limitations: no limitations History of Present Illness HPI narrative: 84-year-old male presents the emergency department 6.5 hours after he had a fall in the driveway. No loss of consciousness, no seizure. No medical symptoms preceding fall. He had a small amount of ice in the edge of the driveway and slipped on it, purely mechanical type fall. Patient is elderly was concerned and asked [id number] to look at the wounds. She cleaned them up as best she could and recommended medical treatment which they had initially declined. Patient's son was able to talk him into coming into the ED when the became increasingly anxious that she did not know how to care for the wounds. Son assures me that the patient is behaving normally. He is mildly confused at baseline. He has been eating and drinking, there is no vomiting. He is not exhibiting any abnormal behavior, mental status changes or physical changes. Patient denies any musculoskeletal type injuries from the fall. They have only gently cleansed the forehead and hand lacerations, no other treatments. Has not taken any Tylenol or ibuprofen. Denies hypoglycemia, dysuria, fever, neurological changes. Otherwise denies times 12 systems. Not anticoagulated. Past medical history notable for diabetes, hypertension. He reports that his home medications are listed as accurate. No known drug allergies. ROS is notable for the skin concerns as above, otherwise denies times 12 systems Related Data Home Medications ?Medication ?Instructions ?Recorded ?Confirmed blood sugar diagnostic (Accu-Chek 01/06/23 02/21/23 Guide test strips) empagliflozin 10 mg tablet 10 mg PO DAILY 01/06/23 01/09/24 (Jardiance) latanoprost 0.005 % eye drops 1 drp ophthalmic (eye) HS 01/06/23 01/09/24 lisinopril 20 mg tablet 20 mg PO DAILY 01/06/23 06/05/24 metformin 500 mg tablet 500 mg PO BID 01/06/23 06/05/24 simvastatin 40 mg tablet 40 mg PO HS 01/06/23 06/05/24 Previous Rx's ?Medication ?Instructions ?Recorded insulin glargine 100 unit/mL (3 20 unit (0.2 mL) subcut QPM 90 01/07/23 mL) subcutaneous pen (Lantus days #18 mL Solostar U-100 Insulin) cephalexin 500 mg capsule 500 mg PO TID 7 days #21 caps 06/05/24 Allergies Allergy/AdvReac Type Severity Reaction Status Date / Time No Known Drug Allergies Allergy Verified 01/09/24 10:04 [facility] Medical History Physical debility ?R53.81 - Other malaise (ICD-10) Cognitive impairment ?R41.89 - Other symptoms and signs involving cognitive functions and awareness (ICD-10) Microscopic hematuria ?R31.29 - Other microscopic hematuria (ICD-10) Postoperative anemia ?D64.9 - Anemia, unspecified (ICD-10) Chronic kidney disease, stage 3a ?N18.31 - Chronic kidney disease, stage 3a (ICD-10) Failure to thrive Fall ?W19.XXXA - Unspecified fall, initial encounter (ICD-10) Head injury ?S09.90XA - Unspecified injury of head, initial encounter (ICD-10) Hypertension ?I10 - Essential (primary) hypertension (ICD-10) Insulin dependent type 2 diabetes mellitus ?E11.9 - Type 2 diabetes mellitus without complications (ICD-10) ?Z79.4 - intermediate teacher (current) use of insulin (ICD-10) Surgical History 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 He lives with his (Ada) in their own home. Smoking Status: Never smoker Do you use any of these nicotine containing products: None Second hand tobacco smoke exposure: No How often do you have a drink containing alcohol: never How often do you have six or more drinks on one occasion: Never AUDIT-C Alcohol total score: 0 Non-prescribed substance use: denies use service: Yes Exam Const: Vital Signs, click to edit/add: Vital Signs - 24 hr 08/24/24 23:18 08/24/24 23:52 Temperature 98.3 F Pulse Rate [Left P ulse Oximeter] 114 H 104 H Respiratory Rate 20 16 Blood Pressure [Ri ght Upper Arm] 191/129 H 174/108 H Pulse Oximetry 94 94 Oxygen Delivery Me thod Room Air Room Air Documenting provider has reviewed patient's vital signs: yes Other: Confused, does tell me meandering stories but logical. Friendly and cooperative. HENMT: Face and sinus: normal facial exam Mouth: oral and palatal mucosa normal Throat: posterior oropharynx normal Other: 2 cm laceration above left eyebrow, gape s about 8 mm. Epidermal and dermal thickness, down to the muscular layer but bone not visible. No drainage. Oozing slightly but no active bleeding. Eye: Common normals: PERRL, EOMs intact bilaterally and conjunctivae normal General eye: normal appearance of both eyes Conjunctiva: conjunctiva(e) normal Pupil: PERRL Neck & C-Spine: Common normals: full ROM and no lymphadenopathy Cervical spine: cervical ROM normal; no cervical spine tenderness Resp: Common normals: normal respiratory effort Effort & inspection: able to speak in complete sentences Extremity: Common normals: normal to inspection Other: No obvious deformity to the extremities. No joint swelling to the wrists, elbows. The left hand has a 4 cm by 2 cm skin tear, almost perfect 90?, not bl eeding. Retracted about 1 cm at the largest point. Neuro: Speech: speech normal Motor exam: strength 5/5 throughout and no movement abnormalities noted Psych: Appearance: grossly normal Attitude: engaged Mood and affect: euthymic mood Thought content: normal thought content Insight: fair Judgement: fair Skin: Narrative: Left forehead laceration, left hand skin tear as noted above, no other areas of injury appreciated. Course Course ED Course: Both areas were cleansed with Hibiclens and reexamined. No signs of foreign body. Discussed closure recommendations, verbal consent obtained. Laceration repair for head: Area was cleansed with Hibiclens, then injected with 2 mL of 1% lidocaine without epinephrine. Well tolerated. 4 4-0 Monocryl sutures are placed with good closure, simple interrupted fashion. Covered in antibiotic ointment and Band-Aid, instructed on wound care. Attention then turned to the hand. I was able to slide reapproximate the skin with gentle traction. Dermabond was then applied along each edge and then the center with good closure and hemostasis. Counseled on care. Written instructions provided. Patient is 7 hours out from the time of the injury at this time. He is not showing any signs of significant head injury or medical ailment. Discussed with recommendations to not do further medical workup and family and son are in agreement. Alarm symptoms reviewed that would warrant ED presentation or further workup. They verbalized understanding and agreement. Okay to use Tylenol and ibuprofen as needed, he is declining these for now. Vital Signs Vital signs: Initial Vital Signs Temperature 98.3 F 08/24/24 23:18 Temperature Source Temporal Artery Scan 08/24/24 23:18 Pulse Rate 114 H 08/24/24 23:18 Pulse Rhythm Regular 08/24/24 23:18 Respiratory Rate 20 08/24/24 23:18 Blood Pressure 191/129 H 08/24/24 23:18 Blood Pressure Mean 149 H 08/24/24 23:18 Blood Pressure Position Sitting 08/24/24 23:18 Pulse Oximetry 94 08/24/24 23:18 Oxygen Delivery Method Room Air 08/24/24 23:18 Vital Signs Temperature 98.3 F 08/24/24 23:18 Pulse Rate 114 H 08/24/24 23:18 Respiratory Rate 20 08/24/24 23:18 Blood Pressure 191/129 H 08/24/24 23:18 Pulse Oximetry 94 08/24/24 23:18 Oxygen Delivery Method Room Air 08/24/24 23:18 Temperature 98.3 F 08/24/24 23:18 Pulse Rate 104 H 08/24/24 23:52 Respiratory Rate 16 08/24/24 23:52 Blood Pressure 174/108 H 08/24/24 23:52 Pulse Oximetry 94 08/24/24 23:52 Oxygen Delivery Method Room Air 08/24/24 23:52 Discharge Plan Discharge Clinical Impression: Laceration of forehead without complication, Skin tear of hand without compli cation Patient Disposition: Home w/ Parent or Adult Condition: Improved Instructions: Laceration (DC), Skin Adhesive Care (ED) Additional Instructions: As we discussed, there were 4 stitches placed in the forehead. These will need to be removed. Please call the clinic to obtain an appointment. The appointment should be made for about 10 days from now. Keep the dressing on the forehead until tomorrow. Once daily, cleanse very gently with a washcloth, soap and water once dry, reapply antibiotic ointment or plain Vaseline and cover with a fresh Band-Aid. The skin tear on the hand was reapproximated and then covered with a medical grade glue. This will flake off on its own over the course of the next week or so. Do not soak or submerge the hand but you may gently wash your hands and pat dry. Do not aggressively scrub at the glue. It is very common for older adults after head injury to be a little more restless, have some difficulty sleeping or be slightly confused. If there are seizures, persistent vomiting, loss of consciousness, or behavior very out of character, he should return to the emergency department. Activity Level: Activity as Tolerated Discharge Diet: Regular Prescriptions: No Action cephalexin 500 mg capsule 500 mg PO TID 7 Days Qty: 21 0RF latanoprost 0.005 % drops 1 drp ophthalmic (eye) HS metformin 500 mg tablet 500 mg PO BID lisinopril 20 mg tablet 20 mg PO DAILY (DME) Accu-Chek Guide test strips Strip MISCELLANEOUS simvastatin 40 mg tablet 40 mg PO HS Jardiance 10 mg tablet 10 mg PO DAILY insulin glargine [Lantus Solostar U-100 Insulin] 100 unit/mL (3 mL) insulin pen 20 unit subcut QPM 90 Days Qty: 18 0RF Follow Up/Referrals: Genaro Freedman MD [Primary Care Provider] - Stand Alone Forms: [employer] Info Instructions
--- OUTSIDE RECORDS SUMMARY | 2024-08-25 00:43 | XMS_ITS | Continuity of Care Document ---
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 Plan of Treatment Reminders Order Date Submit Date Provider Last Modified By Organization Details Last Modified Time Details Appointments URODYNAMI CS PROC 90 2023 02:30P M [facility] Not available Not available Not available Lab None recorded. Referral None recorded. Procedures bladder scan (PROC) 2023 024 [email or web address] [facility], [facility], [address], [place], [address], 06/12/2024 14:44:35 Surgeries None recorded. Imaging None recorded. Medication Orders None recorded. Patient TargetsNo targets recorded. Patient Instructions Encounter Date Encounter Id Patient Instructions Last Modified By Organization Details Last Modified Time 06/12/2024 [id number] not sure why he isnt emptying- will set up for urodynamic study [email or web address] Not available 06/12/2024 15:16:22 Reason for Referral None Reported. Results Created Date Observation Date Name Description Value Unit Range Abnormal Flag Note LastModifiedBy Organization Detail LastModifiedTime 06/12/20 24 06/12/2024 bladd er scan (PROC ) Volume (in mL) 427 Not Available [address], [place], [address], 06/06/2024 13:40:54 06/12/20 24 06/05/2024 CT, urogr am No observ ation record ed. [email or web address] Not Available 2023 15:03:07 06/19/20 24 06/05/2024 CT, abdom en + pelvi s, w/ contr ast No observ ation record ed. [email or web address] Not Available 09/2023 12:24:17 Result Notes None recorded. Problems Name Problem SNOMED Code Status Onset Date Resolution Date Notes Provider Name and Address Organization Details Recorded Time Urgent desire to urinate 53107957 Active 024 Christophe Diane MD [address] [place] [address],[address], [place], [address], [facility] 4 14:24:02 Retention of urine 072486911 Active 024 Christophe Diane MD [address] [place] [address],[address], [place], [address], [facility] 4 14:24:03 Problem Notes None recorded. Procedures Surgical History Date Name Laterality Status Provider Name and Address Organization Details Recorded Time 08/29/20 Urodynamic Studies active Venkata Kent [facility] 07/20/2024 11:34:48 06/12/20 24 Cystoscopy- male completed Christophe Diane MD [address] [place] [address],[address], [place], [address], [facility] 06/12/2024 15:14:15 06/12/20 24 Cipro post Cysto completed Maya Burk [facility] 06/06/2024 13:40:47 06/12/20 24 Bladder Scan completed Christophe Diane MD [address] [place] [address],[address], [place], [address], [facility] 06/12/2024 14:40:38 05/01/20 24 Bladder Scan completed Christophe Diane MD [address] [place] [address],[address], [place], [address], [facility] 05/01/2024 14:07:14 01/23/20 24 COMPLEX VISIT completed Mohit Fernandez MD [address] [place] [address],[address], [place], [address], [facility] 01/23/2024 18:03:07 01/23/20 24 Bladder Scan completed Anjelica Arthur [facility] 01/23/2024 14:05:09 07/25/20 23 Bladder Scan completed Rosalieclau Bryson [facility] 07/25/2023 14:04:12 06/27/20 23 TRANSURETHRAL RESECTION OF PROSTATE (SURG) completed Mohit Fernandez MD [address], [place], [address], [facility] 07/25/2023 14:34:10 04/14/20 23 Urodynamic Studies completed Patricia Carlisle [facility] 04/15/2023 10:20:17 03/18/20 23 Worrell Catheter Insertion completed Anjelica Arthur [facility] 03/18/2023 15:22:44 03/18/20 23 Fill and Pull/Voiding Trial/TOV completed Anjelica Arthur [facility] 03/18/2023 12:29:21 total replacement of hip completed Anjelica Arthur [facility] 03/18/2023 11:43:01 Appendectomy completed Anjelica Adeolacristhian [facility] 03/18/2023 11:43:06 Imaging Results None recorded. Procedure [...] active Not Available Not Available Not Available cephalexin 500 mg capsule active Not Available Not Available [...] and Address Organization Details Last Updated DateTime 06/12/2024 187.96 cm 29.5 kg/m2 680032.25 g Christophe Diane MD [address] [place] [address],[facility] [address], [place], [address] 06/12/2024 14:40:48 Social History Question Answer Notes LastModified by Organizat ion Details LastModified Time Tobacco Smoking Status Never Smoker Anjelica Arthur [facility] 03/18/2023 11:42:44 What Is Your Level Of Alcohol Consumption? None Information not available 03/18/2023 What Was The Date Of Your Most Recent Tobacco Screening? 06/12/2024 [email or web address] Information not available 06/12/2024 Do You Use Any Illicit Or Recreational Drugs? No [email or web address] Information not available 06/12/2024 Has Tobacco Cessation Counseling Been Provided? No [...] Cholesterol Y Immunizations Vaccine Type Date Status Note Provider Nam e and Address Organization Details Recorded Time zoster recombinant 01/26/202 4 completed Christophe Diane MD [address], [place], [address], [place] [facility] 06/12/2024 14:40:55 Tdap 4 completed Christophe Diane MD [address], [place], [address], [facility] 06/12/2024 14:40:55 Influenza, adjuvanted, quadrivalent, PF 1 completed Anjelica Stromquist null, [facility] 04/25/2023 15:13:38 Influenza, adjuvanted, quadrivalent, PF 2 completed Anjelica Stromquist null, [facility] 04/25/2023 15:13:38 COVID-19, mRNA, LNP-S, PF, 30 mcg/0.3 mL dose 1 completed Anjelica Stromquist null, [facility] 04/25/2023 15:13:38 COVID-19, mRNA, LNP-S, PF, 30 mcg/0.3 mL dose 1 completed Anjelica Stromquist null, [facility] 04/25/2023 15:13:38 COVID-19, mRNA, LNP-S, PF, 30 mcg/0.3 mL dose 1 completed Anjelica Stromquist null, [facility] 04/25/2023 15:13:39 COVID-19, mRNA, LNP-S, PF, 30 mcg/0.3 mL dose, tamika-sucrose 2 completed Anjelica Stromquist null, [facility] 04/25/2023 15:13:39 COVID-19, mRNA, LNP-S, bivalent, PF, 30 mcg/0.3 mL dose 2 completed Anjelica Stromquist null, [facility] 04/25/2023 15:13:39 pneumococcal polysaccharide PPV23 0 completed Anjelica Stromquist null, [facility] 04/25/2023 15:13:39 Pneumococcal conjugate PCV 13 8 completed Anjelica Stromquist null, [facility] 04/25/2023 15:13:39 zoster recombinant 3 completed Rosalie howe, [facility] 07/25/2023 13:59:03 Influenza, adjuvanted, quadrivalent, PF 3 completed Rosalie howe, [facility] 07/25/2023 13:59:03 RSV, bivalent, protein subunit RSVpreF, diluent reconstituted, 0.5 mL, PF 3 completed Rosalie howe, [facility] 07/25/2023 13:59:03 COVID-19, mRNA, LNP-S, PF, tamika-sucrose, 30 mcg/0.3 mL 3 completed Rosalie howe, [facility] 07/25/2023 13:59:03 Past Encounters Encounter ID Performer Location Encounter Start Date Encounter Closed Date Diagnosis/Indication Diagnosis SNOMED-CT Code Diagnosis ICD10 Code [id number] [facility] [id number] [facility] [address] [place] [address] 06/12/2024 14:28:24 06/13/2024 10:26:46 Retention of urine 928171634 R33.9 Urgent rodríguez rj to urinate 98659272 R39.15 Health Concerns Section Related Observation LastModified by Organization Detai ls LastModified Time None Recorded Concern Status LastModified by Organization Details LastModified Time None Recorded Payers Encounter Date Sequence Insurance Name Policy Number Policy Smith Covered Member ID Smith Member ID Guarantor Name 06/12/2024 1 [facility] [id number] Derek Hadley [id number] Derek Hadley Notes Date Note Type Note Provider Name and Address Organization Details Recorded Time 06/12/2024 text/html seen 1 week ago [facility] for gross hematuria had blood/urine/CT done, got keflex we don't have UC or CT results yet. Christophe Diane MD [address], [place], [address], [facility] 06/12/2024 15:20:04
--- OUTSIDE RECORDS SUMMARY | 2024-08-25 00:43 | XMS_ITS | Data Portability ---
Author Organization [facility], [facility] Address [address] [facility] [facility] [address] [place] [address] Care Team Providers Care Livestock Dealer Name Role Phone KALA FREEDMAN Primary Care [...] recorded. Procedures bladder scan (PROC) 2023 024 [email or web address] [facility], [address] [facility], [address], [place], [address], 05/01/2024 14:07:39 bladder scan (PROC) 2023 024 [email or web address] [facility], [address] [facility], [address], [place], [address], 06/12/2024 14:44:35 Surgeries transuret hral resection of prostate (SURG) 2022 023 [email or web address] Not available 06/06/2023 13:18:53 Imaging None recorded. Medication Orders oxybutyni n chloride ER 10 mg tablet,ex tended release 24 hr 2023 024 [id number], [address] [place], [place], [id number], 01/23/2024 14:17:41 oxybutyni n chloride ER 5 mg tablet,ex tended release 24 hr 2023 024 [facility][id number], [address] [place], [place], [phone], 05/01/2024 14:25:08 Patient TargetsNo targets recorded. Patient Instructions Encounter Date Encounter Id Patient Instructions Last Modified By Organization Details Last Modified Time 04/25/2023 [id number] Bipolar TURP Discussion We discussed prostate (TURP) [...] time. [email or web address] Not available 04/25/2023 18:19:51 05/01/2024 [id number] will continue tamsulosin and try going to lower dose of oxybutynin ER 5mg daily rtc 6 weeks for PVR recheck [email or web address] Not available 05/01/2024 14:25:32 06/12/2024 [id number] not sure why he isnt emptying- will set up for urodynamic study [email or web address] Not available 06/12/2024 15:16:22 Reason for Referral None Reported. Results Created Date Observation Date Name Description Value Unit Range Abnormal Flag Note LastModifiedBy Organization Detail LastModifiedTime 05/01/2005/01/2024 bladd er scan (PROC ) Volume (in mL) 205 Not Available [place] [id number] [facility] [address] [facility], [place], [address], 04/30/2024 11:01:04 06/12/2006/12/2024 bladd er scan (PROC ) Volume (in mL) 427 Not Available [facility] [address] [facility] [address], [place], [address], 06/06/2024 13:40:54 06/12/2006/05/2024 CT, urogr am No observ ation record ed. [email or web address] Not Available 2023 15:03:07 06/19/2006/05/2024 CT, abdom en + pelvi s, w/ contr ast No observ ation record ed. [email or web address] Not Available 09/2023 12:24:17 Result Notes None recorded. Problems Name Problem SNOMED Code Status Onset Date Resolution Date Notes Provider Name and Address Organization Details Recorded Time Urgent desire to urinate 15851665 Active 024 Christophe Diane MD [address] [place] [address],[address], [place], [address], [facility] 4 14:24:02 Retention of urine 979307258 Active 024 Christophe Diane MD [address] [place] [address],[address], [place], [address], [facility] 4 14:24:03 Problem Notes None recorded. Procedures Surgical History Date Name Laterality Status Provider Name and Address Organization Details Recorded Time 08/29/20 24 Urodynamic Studies active Venkata Kent [facility] 07/20/2024 11:34:48 06/12/20 24 Cystoscopy- male completed Christophe Diane MD [address] [place] [address],[address], [place], [address], [facility] 06/12/2024 15:14:15 06/12/20 24 Cipro post Cysto completed Maya Burk [facility] 06/06/2024 13:40:47 06/12/20 24 Bladder Scan completed Christophe Diane MD [address] [place] [address],[address], [place], [address], [facility] 06/12/2024 14:40:38 05/01/20 24 Bladder Scan completed Christophe Diane MD [address] [place] [address],[address], [place], [address], [facility] 05/01/2024 14:07:14 01/23/20 24 COMPLEX VISIT completed Mohit Fernandez MD [address] [place] [address],[address], [place], [address], [facility] 01/23/2024 18:03:07 01/23/20 24 Bladder Scan completed Anjelica Arthur [facility] 01/23/2024 14:05:09 07/25/20 23 Bladder Scan completed Rosalie Bryson [facility] 07/25/2023 14:04:12 06/27/20 23 TRANSURETHRAL RESECTION OF PROSTATE (SURG) completed Mohit Fernandez MD [address] [facility],[address], [place], [address], [facility] 07/25/2023 14:34:10 04/14/20 23 Urodynamic Studies completed Patricia Carlisle [facility] 04/15/2023 10:20:17 03/18/20 23 Worrell Catheter Insertion completed Anjelica Arthur [facility] 03/18/2023 15:22:44 03/18/20 23 Fill and Pull/Voiding Trial/TOV completed Anjelica Arthur [facility] 03/18/2023 12:29:21 total replacement of hip completed Anjelica Arthur [facility] 03/18/2023 11:43:01 Appendectomy completed Anjelica Arthur [facility] 03/18/2023 11:43:06 Imaging Results Imaging Date Name Status LastModified by Organiz ation Details LastModified Time 06/05/2024 CT, urogram completed [email or web address] Information n ot available 06/12/2024 15:03:07 06/05/2024 CT, abdomen + pelvis, w/ contrast completed [email or web address] Information not available 06/19/2024 12:24:17 Procedure Notes None recorded. Medical Equipment None [...] Ultra-Fine Short Pen Needle 31 gauge x 02/01 active Not Available Not Available Not Available [...] Updated DateTime 04/25/2023 187.96 cm 27.6 kg/m2 57411.36 g Anjelica Arthur [facility] 04/25/2023 15:12:46 Date Recorded Body height Body mass index (BMI) Body weight Provider Name and Address Organization Details Last Updated DateTime 07/25/2023 187.96 cm 27.6 kg/m2 07083.36 g Rosalie Bryson [facility] 07/25/2023 13:58:59 Date Recorded Body height Body mass index (BMI) Body weight Provider Name and Address Organization Details Last Updated DateTime 01/23/2024 187.96 cm 27.6 kg/m2 06015.36 g Anjelica Arthur [facility] 01/23/2024 14:05:25 Date Recorded Body height Body mass index (BMI) Body weight Provider Name and Address Organization Details Last Updated DateTime 05/01/2024 187.96 cm 29.5 kg/m2 691780.25 g Christophe Diane MD [address] [facility],[address], [place], [address], [facility] 05/01/2024 14:05:57 Date Recorded Body height Body mass index (BMI) Body weight Provider Name and Address Organization Details Last Updated DateTime 06/12/2024 187.96 cm 29.5 kg/m2 138651.25 g Christophe Diane MD [address] [place] [address],[place] [id number] [place] [address] 06/12/2024 14:40:48 Social History Question Answer Notes LastModified by Organizat ion Details LastModified Time Tobacco Smoking Status Never Smoker Anjelica howe, [facility] 03/18/2023 11:42:44 What Is Your Level Of Alcohol Consumption? None Information not available 03/18/2023 What Was The Date Of Your Most Recent Tobacco Screening? 06/12/2024 Information not available 06/12/2024 Do You Use Any Illicit Or Recreational Drugs? No [email or web address] Information not available 06/12/2024 Has Tobacco Cessation Counseling Been Provided? No Information not available 03/18/2023 Do You Or Have You Ever Used Any Other Forms Of Tobacco Or Nicotine? No Information not available 03/18/2023 Sex: Unknown Functional Status None recorded. Mental Status None recorded. Family History Nothing Reported Notes:diabetes on mother's s alxe of family Medical History Condition Response High Blood Pressure Y Diabetes Y High Cholesterol Y Immunizations Vaccine Type Date Status Provider Name and Address Organization Details Recorded Time zoster recombinant 10/14/2023 completed Christophe eddy MD [address] [place] [address],[address], [address], [facility] 06/12/2024 14:40:55 Tdap 10/14/2023 completed Christophe Diane MD [address] [place] [address],[address], [address], [facility] 06/12/2024 14:40:55 Influenza, adjuvanted, quadrivalent, PF 06/17/2021 completed Anjelica howe, [facility] 04/25/2023 15:13:38 Influenza, adjuvanted, quadrivalent, PF [facility]20[facility] 15:13:38 COVID-19, mRNA, LNP-S, PF, 30 mcg/0.3 mL dose 11/25/2020 completed Anjelica Adeolaquist null, [facility] 04/25/2023 15:13:38 COVID-19, mRNA, LNP-S, PF, 30 mcg/0.3 mL dose 12/16/2020 completed Anjelica Adeolaquist null, [facility] 04/25/2023 15:13:38 COVID-19, mRNA, LNP-S, PF, 30 mcg/0.3 mL dose 06/17/2021 completed Anjelicasussy Mirquist null, [facility] 04/25/2023 15:13:39 COVID-19, mRNA, LNP-S, PF, 30 mcg/0.3 mL dose, tamika-sucrose 12/30/2021 completed Anjelica Mirquist null, [facility] 04/25/2023 15:13:39 COVID-19, mRNA, LNP-S, bivalent, PF, 30 mcg/0.3 mL dose 06/25/2022 completed Anjelica Arthur null, [facility] 04/25/2023 15:13:39 pneumococcal polysaccharide PPV23 04/09/2020 completed Anjelica Arthur null, [facility] 04/25/2023 15:13:39 Pneumococcal conjugate PCV 13 05/05/2018 completed Anjelica Arthur null, [facility] 04/25/2023 15:13:39 zoster recombinant 07/14/2023 completed Rosalie mckeon null, [facility] 07/25/2023 13:59:03 Influenza, adjuvanted, quadrivalent, PF 07/01/2023 completed Rosalie Bryson null, [facility] 07/25/2023 13:59:03 RSV, bivalent, protein subunit RSVpreF, diluent reconstituted, 0.5 mL, PF 07/14/2023 completed Rosalie Bryson null, [facility] 07/25/2023 13:59:03 COVID-19, mRNA, LNP-S, PF, tamika-sucrose, 30 mcg/0.3 mL 06/24/2023 completed Rosalie Bryson null, [facility] 07/25/2023 13:59:03 Past Encounters Encounter ID Performer Location Encounter Start Date Encounter Closed Date Diagnosis/Indication Diagnosis SNOMED-CT Code Diagnosis ICD10 Code [id number] Mohit Fernandez MD [facility] [address] [place], [place] [address] 03/18/2023 10:55:59 03/25/2023 13:01:18 Retention of urine 894984051 R33.9 Lower urin brian tract symptoms due to benign prostatic hypertrophy 1094357971 9101 N40.1 Insulin tr eated type 2 diabetes mellitus 331792729 Z79.4 [id number] Patricia Carlisle [facility] [address] [place], [place] [address] 04/14/2023 12:55:21 04/21/2023 12:07:22 Retention of urine 381168459 R33.9 [id number] Mohit Fernandez MD [facility] [address] [place] [address] 04/25/2023 14:51:28 05/02/2023 12:04:28 Retention of urine 748601667 R33.9 Lower urin brian tract symptoms due to benign prostatic hypertrophy 0649487769 9101 N40.1 Insulin tr eated type 2 diabetes mellitus 753795454 Z79.4 [id number] Mohit Fernandez MD [facility] [address] [place], [place] [address] 07/25/2023 13:17:16 07/28/2023 16:15:39 Retention of urine 009833282 R33.9 Lower urin brian tract symptoms due to benign prostatic hypertrophy 3819623721 9101 N40.1 Insulin tr eated type 2 diabetes mellitus 209793417 Z79.4 [id number] Mohit Fernandez MD [facility] [address] [place], [place] [address] 01/23/2024 13:29:00 01/24/2024 08:31:49 Retention of urine 452705099 R33.9 Lower urin brian tract symptoms due to benign prostatic hypertrophy 3880637814 9101 N40.1 Insulin tr eated type 2 diabetes mellitus 293681202 Z79.4 Increased frequency of urination 485188374 R35.0 Urge incon tinence of urine 59987257 N39.41 [id number] Christophe Diane MD [facility] [address] [place] [address] 05/01/2024 13:49:53 05/03/2024 14:16:22 Retention of urine 019515812 R33.9 Urgent rodríguez rj to urinate 53021520 R39.15 [id number] [facility] [address] [facility],[address] [place] [address] 06/12/2024 14:28:24 06/13/2024 10:26:46 Retention of urine 231057573 R33.9 Urgent rodríguez rj to urinate 21696397 R39.15 Health Concerns Section Related Observation LastModified by Organization Detai ls LastModified Time None Recorded Concern Status LastModified by Organization Details LastModified Time None Recorded Advance Directives Directive None Recorded Payers Encounter Date Sequence Insurance Name Policy Number Policy Smith Covered Member ID Smith Member ID Guarantor Name 04/25/2023 1 [employer] 007 Derek Hadley [id number] Derek Hadley 04/25/2023 2 [place] [employer] [facility] Derek Hadley [id number] Derek Hadley 07/25/2023 1 [employer] 007 Derek Hadley [id number] Derek Hadley 07/25/2023 2 [place] [employer] [facility] Derek Hadlye [id number] Derek Hadley 01/23/2024 1 [employer] 007 Derek Hadley [id number] Derek Hadley 01/23/2024 2 [place] [employer] [facility] Derek Hadley [id number] Derek Hadley 05/01/2024 1 [employer] 007 Derek Hadley [id number] Derek Hadley 06/12/2024 1 [employer] 007 Derek Hadley [id number] Derek Hadley Notes Date Note Type Note Provider Name and Address Organization Details Recorded Time 04/25/2023 text/html Mr. Hadley is an 82 year old male referred to me by his PCP, Dr. Freedman, regarding urinary retention in the setting of long-standing IDDM and recent hip procedure. Patient was started on tamsulosin but has now failed voiding trials x3. He is therefore referred to me for evaluation and treatment. Seen today with his son who provides some of the history. 04/25/2023:Here for follow up acute urinary retention in the setting of IDDM, BPH with LUTS. 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 Seen today with his and son who provides some of the history. Mohit Fernandez MD [address] [place] [address],[address], [place], [address], [facility] 04/25/2023 18:19:59 07/25/2023 text/html Mr. Hadley is an 83 year old male referred to me by his PCP, Dr. Freedman, regarding urinary retention in the setting of long-standing IDDM and recent hip procedure. Patient was started on tamsulosin but has now failed voiding trials x3. He is therefore referred to me for evaluation and treatment. Seen today with his son who provides some of the history. 04/25/2023:Here for follow up acute urinary retention in the setting of IDDM, BPH with LUTS. 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 Seen today with his and son who provides some of the history. 07/25/2023:Here for follow up acute urinary retention in the setting of IDDM, BPH with LUTS. Now s/p TURP and doing well. Mohit Fernandez MD [address] [place] [address],[address] [facility], [place], [address], [facility] 07/25/2023 14:34:47 01/23/2024 text/html Mr. Hadley is an 83 year old male referred to me by his PCP, Dr. Freedman, regarding urinary retention in the setting of long-standing IDDM and recent hip procedure. Patient was started on tamsulosin but has now failed voiding trials x3. He is therefore referred to me for evaluation and treatment. Seen today with his son who provides some of the history. 04/25/2023:Here for follow up acute urinary retention in the setting of IDDM, BPH with LUTS. 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 Seen today with his and son who provides some of the history. 07/25/2023:Here for follow up acute urinary retention in the setting of IDDM, BPH with LUTS. Now s/p TURP and doing well. 01/23/2024:Here for follow up acute urinary retention in the setting of IDDM, BPH with LUTS. S/p TURP. Flow is going well but still having a lot of issues with frequency and urge incontinence. Patient seen again today with his who provides some of the history. She believes this is mostly attributed to both his diabetes and fluid intake. Mohit Fernandez MD [address] [place] [address],[address], [place], [address], [facility] 01/23/2024 18:03:21 05/01/2024 text/html seeing for BPH follow up, has some leaking and wearing depends. PVR 205ml today. taking tamsulosin daily, and oxybutynin ER 10mg Christophe Diane MD [address] [place] [address],[address], [place], [address], [facility] 05/01/2024 14:25:48 06/12/2024 text/html seen 1 week ago [facility] ED for gross hematuria had blood/urine/CT done, got keflex we don't have UC or CT results yet. Christophe Diane MD [address] [place] [address],[address], [place], [address], [facility] 06/12/2024 15:20:04
--- OUTSIDE RECORDS SUMMARY | 2024-08-25 00:43 | XMS_ITS | Clinical Summary ---
Author Organization [employer] [facility] Address [place], [place] [address] Care Team Providers Care Heart Coordinator Name Role Phone Genaro Freedman MD Primary Care Provider [phone] Haris Contreras Unavailable Unavailable Allergies Active Allergy Reactions Criticality Noted Date Comments Ibuprofen Hives 06/05/2007 02/20/2010 Derek said he has taken Advil with no problems; tolerates liquid gel caps. Allergy to the coating on tablets Medications medication order composerIndications:Typ e 2 diabetes mellitus without complication, with long-term current use of insulin (HC) Please dispense 1 pair diabetic footwear 1 Package 020 Active latanoprost (XALATAN) 0.005 % ophthalmic solution 021 Active Blood Glucose Control High&Low (Accu-Chek Guide L1-L2 Ctrl Ruby) solnIndications:Type 2 diabetes mellitus without complication, with long-term current use of insulin (HC) As directed. Dispense control solution covered by insurance 1 Each 1 022 Active aspirin chewable 81 mg chewable tabletIndications:S/P TURP (status post transurethral resection of prostate) Chew 1 Tablet (81 mg) by mouth once daily with a meal. ok to resume in 1 week 0 023 Active Additional Information Patient taking differently:81 mg Oral DAILY WITH MEAL,(No instructions reported), Reported on 04/24/2024 sennosides-docusate (SENOKOT S) (8.6-50 mg) tabletIndications:S/P TURP (status post transurethral resection of prostate) Take 1 Tablet by mouth 2 times daily if needed for Constipation. 20 Tablet 06/28/20 23 5:20 PM CDT 023 Active pen needle (Droplet Pen Needle) 31 gauge x 5/16 (disposable insulin pen needle)Indications:Diab etes mellitus without complication (HC) For administering insulin at home. Twice daily 200 Each 3 Active tamsulosin (FLOMAX) 0.4 mg capsuleIndications:BPH with urinary obstruction Take 1 Capsule (0.4 mg) by mouth once daily after a meal. 90 Capsule 3 Active empagliflozin (JARDIANCE) 25 mg tabletIndications:Type 2 diabetes mellitus without complication, with long-term current use of insulin (HC) Take 1 Tablet (25 mg) by mouth once daily. 90 Tablet 3 Active simvastatin (ZOCOR) 40 mg tabletIndications:Pure hypercholesterolemia Take 1 Tablet (40 mg) by mouth at bedtime. 90 Tablet 3 Active blood sugar diagnostic (Accu-Chek Guide test strips) stripIndications:Type 2 diabetes mellitus without complication, with long-term current use of insulin (HC) TEST BLOOD SUGAR ONE TIME DAILY 100 Each 3 024 Active lancets (Accu-Chek Softclix Lancets)Indications:Typ e 2 diabetes mellitus without complication, with long-term current use of insulin (HC) TEST BLOOD SUGAR ONE TIME DAILY 100 Each 3 024 Active metFORMIN (GLUCOPHAGE) 500 mg tabletIndications:Type 2 diabetes mellitus without complication, with long-term current use of insulin (HC) Take 2 Tablets (1,000 mg) by mouth two times daily with meals. 360 Tablet 3 Active insulin glargine, U-100, (Lantus Solostar U-100 Insulin) 100 unit/mL (3 mL) penIndications:Type 2 diabetes mellitus without complication, with long-term current use of insulin (HC) Inject 22 units subcutaneous before bedtime. 60 mL 1 Active blood-glucose meterIndications:Type 2 diabetes mellitus without complication, with long-term current use of insulin (HC) Dispense meter, test strips, lancets covered by pt ins. E11.9 NIDDM type II - Test 1 time/day 1 Each 11/18/2 024 Active blood-glucose meterIndications:Type 2 diabetes mellitus without complication, with long-term current use of insulin (HC) Dispense meter, test strips, lancets covered by pt ins. E11.9 NIDDM type II - Test 1 time/day 1 Each 022 2023 Disconti nued(Reo rder (E-cance l not sent)) Active Problems Problem Noted Date Diagnosed Date [...] Encounters Date Type Department Care Team Description 08/06/2024 Telephone [facility] [address] [place] [address] Genaro Freedman MD Medication Management (blood-glucose meter) 07/25/2024 1:35 PM [employer]IDENTIAL SALES ASSOCIATE Office [facility] [address] [place] [address] Genaro Freedman MD Diabetes (Routine follow up); Immunization/Injectio n 07/25/2024 Travel 07/20/2024 11:45 AM CDT Orders Only [facility] [address] [place] [address] [facility], [place] 07/20/2024 Travel 07/16/2024 Refill [facility] [address] [place] [address] Genaro Freedman MD Refill Request (Metformin) 07/11/2024 Orders Only [facility] [address] [place] [facility] [address] Genaro Freedman MD Lab (Order Update) 07/10/2024 Orders Only [facility] Scanner 1 scan: (1-Ord) [facility], 07/10/2024 06/12/2024 Orders Only [facility] Scanner 1 scan: (1-Ord) [facility], CYSTOSCOPY, 06/12/2024 06/05/2024 Orders Only [facility] Scanner 1 scan: (1-Ord) [facility], CT UROGRAM, 06/05/2024 06/05/2024 Nurse Triage [facility] [address] [place] [address] Genaro Freedman MD Blood In Urine from Last 3 Months Immunizations Name Administration Dates Next Due COVID-19 VACCINE COMIRNATY ( PFIZER-BIONTECH 30MCG/0.3ML) 12YO+ PFS 06/24/2023 COVID-19 VACCINE SPIKEVAX (M ODERNA 50MCG/0.5ML) 12YO+ PFS 07/25/2024 COVID-19 vaccine (Pfizer-Bio NTech 30mcg/0.3mL) 12YO+ BIVALENT PF, MDV 06/25/2022 COVID-19 vaccine (Pfizer-Bio NTech 30mcg/0.3mL) 12YO+ NICOLE-SUCROSE PF, MDV 12/30/2021 COVID-19 vaccine (Pfizer-Bio NTech 30mcg/0.3mL) PF, MDV 06/17/2021,12/16/2020,11/25/2020 Influenza, IIV3 (Age >=3 years) 07/23/1999 Influenza, Inactivated AIIV4 (Age 65+ Years) Preserv Free 07/01/2023,06/25/2022,06/17/2021 Influenza, Inactivated IIV3 (Age 65+ Years) Preserv Free 07/25/2024 Pneumococcal Poly,23-Valent (Pneumovax) 04/09/20 20 Pneumococcal conj [...] 0 04/24/2024 Social Connections Answer Date Recorded Do you often feel lonely or isolated from those around you? 0 01/04/2024 Financial Resource Strain Answer Date R ecorded Difficulty of Paying Living Expenses 3 01/04/2024 Difficulty of Paying Living Expenses Not on file 01/04/2024 Food Insecurity Answer Date Recorded Do you worry your food will run out before you are able to buy more? 1 01/04/2024 Transportation Needs Answer Date Record ed Does lack of transportation keep you from medica l appointments? 1 01/04/2024 Does lack of transportation keep you from work, meetings or getting things that you need? 1 01/04/2024 Housing Stability Answer Date Recorded What is your housing situation today? 1 01/04/2024 Sex and Gender Information Value Date Recorded Sex Assigned at Not on file Legal Sex Male 5:24 AM RESIDENTIAL SALES ASSOCIATE Gender Identity Not on file Sexual Orientation Not on file Occupation Industry Job Start Date Job End Date [employer] Not on file Not on file Not on file Obstetrics History Last Filed Vital Signs Vital Sign Reading Time Taken Comments Blood Pressure 118/74 07/25/2024 2:08 PM [employer]IDENTIAL SALES ASSOCIATE Pulse 69 07/25/2024 1:45 PM RESIDENTIAL SALES ASSOCIATE Temperature 36.2 C (97.1 F) 07/25/2024 1:45 PM RESIDENTIAL SALES ASSOCIATE Respiratory Rate 18 06/29/2023 2:11 PM CDT Oxygen Saturation 94% 07/25/2024 1:45 PM RESIDENTIAL SALES ASSOCIATE Inhaled Oxygen Concentration - - Weight 103 kg (227 lb 1.6 oz) 07/25/2024 1:45 PM RESIDENTIAL SALES ASSOCIATE Height 180.2 cm (5' 10.95) 04/24/2024 2:11 PM C DT Body Mass Index 31.72 04/24/2024 2:11 PM CDT Plan of Treatment Health Maintenance Due Date Last Done Comments BMI (ht and wt on same day) [...] series for age 50+ Completed 10/14/2023, 07/14/2023 COVID-19 vaccine series Completed 07/25/20, 06/24/2023, 06/25/2022, Additional history exists Influenza for age 65+ Completed 07/25/2024 , 07/01/2023, 06/25/2022, Additional history exists Procedures Procedure Name Priority Date/Time Associated Diagnosis Comments HEMOGLOBIN A1C MONITORING (POCT) Routine 07/20/2024 12:06 PM CDT Type 2 diabetes mellitus without complication, with long-term current use of insulin (HC) BASIC METABOLIC PANEL Routine 07/20/2024 12:05 PM CDT Type 2 diabetes mellitus without complication, with long-term current use of insulin (HC) LIPID PANEL W REFLEX MEASURED LDL Routine 07/20/2024 12:05 PM CDT Pure hypercholesterolemia VITAMIN B12 Routine 07/20/2024 12:05 PM CDT Type 2 diabetes mellitus without complication, with long-term current use of insulin (HC) URINE ALBUMIN TO CREATININE RATIO, RANDOM Routine 07/20/2024 12:05 PM CDT Type 2 diabetes mellitus without complication, with long-term current use of insulin (HC) SCAN-EYE EXAM 07/10/2024 12:00 AM CDT SCAN-OPERATIVE/PROCE DURE REPORT 06/12/2024 12:00 AM CDT SCAN-CT INTERPRETATION 06/05/2024 12:00 AM CDT from Last 3 Months Results * (ABNORMAL) HEMOGLOBIN A1C MONITORING POCT (07/20/2024 12:06 PM CDT) POC HEMOGLOBIN A1C 8.9(H) <6.0 % OF TOTAL HGB [facility] Comment: Any point of care results exhibiting inconsistency with the patient's clinical status should be repeated using a different testing method. Blood BLOOD SPECIMEN / Unknown 07/20/2024 12:06 PM CDT 07/20/2024 12:07 PM CDT us Genaro Freedman MD CHEMISTRY Final Resu lt [facility] [address] [place] [address], [place] [phone] [facility] [address] [place] [address] * LIPID PANEL W REFLEX MEASURED LDL (07/20/2024 12:05 PM CDT) CHOLESTEROL, TOTAL 126 <200 mg/dL [facility] HDL CHOLESTEROL 49 > OR = 40 mg/dL [facility] TRIGLYCERIDES 112 <150 mg/dL [facility] LDL-CHOLESTEROL 57 mg/dL (calc) [facility] Comment: Reference range: <100 Desirable range <100 mg/dL for primary prevention; <70 mg/dL for patients with CHD or diabetic patients with > or = 2 CHD risk factors. LDL-C is now calculated using the Aayush calculation, which is a validated novel method providing better accuracy than the Friedewald equation in the estimation of LDL-C. Magdiel SS et al. CONNIE. 2013;310(19): 9701-4963 (http://education.Cell>Point/faq/XMD332) CHOL/HDLC RATIO 2.6 <5.0 (calc) [facility] NON HDL CHOLESTEROL 77 <130 mg/dL (calc) [facility] Comment: For patients with diabetes plus 1 major ASCVD risk factor, treating to a non-HDL-C goal of <100 mg/dL (LDL-C of <70 mg/dL) is considered a therapeutic option. Blood BLOOD SPECIMEN / Unknown 07/20/2024 12:05 PM CDT 07/20/2024 12:06 PM CDT us Genaro Freedman MD CHEMISTRY Final Resu lt [facility] [address] [place] [address], [facility] [address] [place] [address] * (ABNORMAL) URINE ALBUMIN TO CREATININE RATIO, RANDOM (07/20/2024 12:05 PM CDT) CREATININE, RANDOM URINE 45 20 - 320 mg/dL [facility] ALBUMIN, URINE 2.7 See Note: mg/dL [facility] Comment: Reference Range: Reference Range Not established ALBUMIN/CREATININE RATIO, RANDOM URINE 60(H) <30 mg/g creat [facility] Comment: The ADA defines abnormalities in albumin excretion as follows: Albuminuria Category Result (mg/g creatinine) Normal to Mildly increased <30 Moderately increased 30-299 Severely increased > OR = 300 The ADA recommends that at least two of three specimens collected within a 3-6 month period be abnormal before considering a patient to be within a diagnostic category. Urine URINE SPECIMEN / Unknown 07/20/2024 12:05 PM CDT 07/20/2024 12:06 PM CDT Genaro Freedman MD URINE Final Resu lt [facility] [address] [address], [facility] [address] [place] [phone] * VITAMIN B12 (07/20/2024 12:05 PM CDT) VITAMIN B12 498 200 - 1,100 pg/mL [facility] Blood BLOOD SPECIMEN / Unknown 07/20/2024 12:05 PM CDT 07/20/2024 12:06 PM CDT Genaro Freedman MD CHEMISTRY Final Resu lt Performing Organization Address [facility]/ZIP Co de Phone Number [facility] [address] [address], [facility] [address] [place] [phone] * (ABNORMAL) BASIC METABOLIC PANEL (07/20/2024 12:05 PM CDT) GLUCOSE 310(H) 65 - 99 mg/dL [facility] Comment: Fasting reference interval For someone without known diabetes, a glucose value >125 mg/dL indicates that they may have diabetes and this should be confirmed with a follow-up test. UREA NITROGEN (BUN) 28(H) 7 - 25 mg/dL [facility] CREATININE 1.35(H) 0.70 - 1.22 mg/dL [facility] EGFR 52(L) > OR = 60 mL/min/1.7 3m2 [facility] BUN/CREATININE RATIO 21 6 - 22 (calc) [facility] SODIUM 137 135 - 146 mmol/L [facility] POTASSIUM 4.9 3.5 - 5.3 mmol/L [facility] CHLORIDE 100 98 - 110 mmol/L [facility] CARBON DIOXIDE 29 20 - 32 mmol/L [facility] ELECTROLYTE BALANCE 8 7 - 17 mmol/L (calc) [facility] CALCIUM 9.2 8.6 - 10.3 mg/dL [facility] Blood BLOOD SPECIMEN / Unknown 07/20/2024 12:05 PM CDT 07/20/2024 12:06 PM CDT us Genaro Freedman MD CHEMISTRY Final Resu lt [facility] [address] [place] [address], [place] [phone] [facility] [address] [place] [address] * SCAN-EYE EXAM (07/10/2024 12:00 AM CDT) us Scanner OTHER Final Result * SCAN-OPERATIVE/PROCEDURE REPORT (06/12/2024 12:00 AM CDT) us Scanner OTHER Final Result * SCAN-CT INTERPRETATION (06/05/2024 12:00 AM CDT) Anatomical Region Laterality Modality Other us Scanner OTHER Final Result from Last 3 Months Insurance [employer] [id number] Advance Directives * Full Code (Latest Code Status on File) Date Activated Date Inactivated Comments 06/27/2023 11:56 AM 06/29/2023 5:00 PM Question Answer Comments Code Status Discussion: Unable to Assess Preferences, Provider to review later Care Teams Heart Coordinator Relationship Specialty Start Date End Date Genaro Freedman MD [address] [place] [facility] [address] PCP - General 04/12/07 Haris Contreras Family Service Counselor 12/29/22
== END 2024-08-25 00:48 | disposition home or self-care (01) ==
LOC: ED 08-25 00:40
PROVIDERS: Emergency Provider Family Medicine; PCP Family Medicine
DX: S01.81XA Laceration without foreign body of other part of head, initial encounter (principal); S61.412A Laceration without foreign body of left hand, initial encounter; W00.0XXA Fall on same level due to ice and snow, initial encounter; Y92.007 Garden or yard of unspecified non-institutional (private) residence as the place of occurrence of the external cause
CPT/HCPCS: 12001; 99283